=== PATIENT | female | born 1930 | race Caucasian/White ===

== ENCOUNTER 2018-09-17 17:04 | Inpatient (IN) ==
--- OUTSIDE RECORDS SUMMARY | 2018-09-17 17:10 | External Medical Summary | Continuity of Care Document ---
:1930 Author Name Luis Santiago Address Unavailable Unavailable , Care Team Providers Name Role Phone Unavailable Unavailable Unavailable Pita Santiago Unavailable [email or web address] Agnieszka BUI Unavailable Unavailable Unavailable Unavailable Unavailable Problems Xerosis of skin (706.8) (L85.3) BCC (basal cell carcinoma) (173.91) (C44.91) Actinic keratosis (702.0) (L57.0) History of basal cell carcinoma (V10.83) (Z85.828) Allergies and Adverse Reactions No Known Drug Allergies (Allergy) Medications Atenolol TABS; TAKE 1 TABLET DAILY. , M.D. Refills: 0 Vitamin D 2000 UNIT Oral Capsule; TAKE 2 CAPSULE Daily , M.D . Start: 25-Nov-2013 Refills: 0 Evista TABS; TAKE 1 TABLET DAILY. , M.D. Refills: 0 Lisinopril TABS; TAKE 1 TABLET DAILY. , M.D. Refills: 0 Lescol CAPS; TAKE 1 CAPSULE AT BEDTIME NIGHTLY. , M.D. Refills: 0 Ammonium Lactate 12 % External Lotion; A PPLY AND RUB IN A THIN FILM TO AFFECTED AREAS TWICE DAILY.(AM AND PM). Jack Lema Start: 2014 Quantity: 1 225 GM Bottle Refills: 2 Procedures Procedures not documented Immunizations Immunizations not documented Social History - Smoking Status Never smoker Plan of Treatment Planned Observations Planned Goals not documented Results No Known Results Results not documented
--- NOTE | 2018-09-17 17:21 | Emergency Department Note ---
History of Present Illness General Chief complaint: Fall Stated complaint: FALL, Time Seen by Provider: 09/17/18 17:20 History of Present Illness This is an 88-year-old female that presents to the emergency department via ambulance accompanied by HER-2 daughters with complaints of "fall". The patient notes that earlier today she was ambulating in her home when she was carrying some toilet tissue and water and she accidentally dropped the water and when she went to catch that she leaned forward and then fell backwards striking the head against the floor. She denies loss of consciousness. She notes that she has a headache and is feeling nauseous. She also has been feeling not quite herself and quite "sluggish" for the past 2 weeks. The daughters at bedside notes that she is not quite her perky self, noting that generally she is driving and quality but over the past few weeks seems to be more tired. The patient at this time denies any neck pain, chest pain, shortness of breath, vision change. She denies any abdominal pain or dysuria. Home Medications Home Medications Medication Instructions Recorded Confirmed Type amlodipine [Norvasc] 5 mg PO DAILY 09/17/18 09/17/18 History ascorbic acid (vitamin C) [Vitamin 0 mg PO DAILY 09/17/18 09/17/18 History C] cholecalciferol (vitamin D3) 1,000 unit PO DAILY 09/17/18 09/17/18 History [Vitamin D3] levothyroxine 25 mcg PO DAILY 09/17/18 09/17/18 History meclizine 25 mg PO TID PRN 09/17/18 09/17/18 History metoprolol succinate [Toprol XL] 50 mg PO DAILY 09/17/18 09/17/18 History multivitamin 1 tab PO DAILY 09/17/18 09/17/18 History pravastatin [Pravachol] 20 mg PO DAILY 09/17/18 09/17/18 History Allergies Allergy/AdvReac Type Severity Reaction Status Date / Time chlorthalidone Allergy Severe Rash Verified 09/17/18 17:43 NSAIDS (Non-Steroidal AdvReac Intermediate Hypertensio Verified 09/17/18 17:43 Anti-Inflamma n alendronate sodium AdvReac Gastrointestinal Verified 09/17/18 17:43 [From Fosamax] Upset Past Med/Surg History Medical History HTN (hypertension) (Chronic) HLD (hyperlipidemia) (Chronic) Hypothyroidism (Chronic) Osteoporosis (Chronic) History of nephrolithiasis (Chronic) Surgical History History of cystoscopy (Chronic) History of ureter stent (Chronic) History of D&C (Chronic) History of cataract extraction (Chronic) Family History Father Myocardial infarction, Onset Age: 69 Mother Pancreatic cancer, Onset Age: 69 Social History Preferred Language: Venezuelan Communication Ability: Effective [place] Measurer Required: No Beliefs That Will Affect Care: None marital status: / Current Living Situation: Alone Current Living Situation Comment: Patient very independent, still drives, ambulates without assist device Other Information That Helps Us Care for You: No Feels Safe at Home: Yes Safety Concerns: Feels Safe At This Time Smoking Status: Never smoker Second Hand Exposure: No Hx Alcohol Use: No Hx Substance Use: No Review of Systems A total of 10 systems reviewed and were otherwise negative Physical Exam Vital Signs Vital Signs - 24 hr 09/17/18 17:13 09/17/18 19:43 09/17/18 20:17 Temperature 36.4 C L Temperature Source Oral Sepsis Recent Fever Within 48 Hours No Sepsis Action Taken by Nursing No Action Required Pulse Rate 62 Pulse Rate [Right] 75 74 Pulse Rhythm Regular Pulse Rhythm [Right] Regular Pulse Strength Normal Pulse Strength [Right] Normal Respiratory Rate 20 16 16 Respiratory Effort / Characteristics Non-Labored Spontaneous Non-Labored Spontaneous Non-Labored Spontaneous Respiratory Depth Normal Normal Normal Respiratory Pattern Regular Blood Pressure 206/78 H Blood Pressure [Right Arm] 202/75 H 184/79 H Blood Pressure Mean 120 Blood Pressure Mean [Right Arm] 117 114 Pulse Oximetry 93 95 95 Oxygen Delivery Method Room Air Room Air Room Air VITAL SIGNS - Vital signs and nursing notes were reviewed. Hypertensive, otherwise stable. GENERAL -88-year-old female appearing her stated age who is in no acute distress. Communicates well with provider and answers questions appropriately. SKIN - Without rashes. No meningeal or petechial rash. No break in the int egument overlying the occiput. HEAD - NC/AT. No black signs or raccoon's eyes. EYES - PERRL with EOMI bilaterally. Sclera anicteric. EARS - No deformities of external structures noted on gross examination bilaterally. NOSE - Midline and without cyanosis. No epistaxis or purulent drainage noted. MOUTH/OROPHARYNX - Without perioral cyanosis. NECK - Neck with FROM. Supple to palpation. No lymphadenopathy noted. No nuchal rigidity. LUNGS - Chest wall symmetric without accessory muscle use, intercostals retractions, or central cyanosis. Normal vesicular breath sounds CTA B/L. No wheezes, rales, or rhonchi appreciated. CARDIAC - RRR without any definite murmur noted. ABDOMEN - Abdominal contour normal without pulsations or visible masses. BS normoactive all four quadrants. No tenderness, palpable masses, hepatosplenomegaly, or ascites noted. EXTREMITIES - No clubbing or peripheral cyanosis. No pretibial edema present. Full range of motion of the extremities. No tenderness on exam. +5/5 strength noted in UE/LE bilaterally. NEUROLOGIC - Cranial nerves II through XII grossly intact. Sensory intact to light touch throughout. PSYCH - A&Ox3 and cooperates fully with examiner. Pt is very pleasant and interacts well with examiner. Course Administered Medications Sodium Chloride (Nss 1000ml) 1,000 mls @ 60 mls/hr IV .[id number] [facility] Stop: 09/18/18 14:29 Last Admin: 09/17/18 22:29 Dose: 60 mls/hr Documented by: [id number] Morphine Sulfate (Morphine Sulfate) 2 mg IV Q4 PRN PRN Reason: Pain Stop: 10/01/18 23:35 Last Admin: 09/18/18 00:42 Dose: 2 mg Documented by: [id number] Discontinued Medications Acetaminophen (Tylenol) 500 mg PO NOW STA Stop: 09/17/18 19:02 Last Admin: 09/17/18 19:15 Dose: 500 mg Documented by: [id number] Sodium Chloride (Nss) 500 mls @ 999 mls/hr IV .Q31M ONE Stop: 09/17/18 19:31 Last Infusion: 09/17/18 19:50 Dose: 0 mls/hr Documented by: [id number] Admin: 09/17/18 19:15 Dose: 999 mls/hr Documented by: [id number] Ceftriaxone Sodium (Rocephin) 1,000 mg in 50 mls @ 100 mls/hr IV NOW STA Stop: 09/17/18 20:45 Last Infusion: 09/17/18 21:01 Dose: 0 mls/hr Documented by: [id number] Admin: 09/17/18 20:30 Dose: 100 mls/hr Documented by: [id number] Ketorolac Tromethamine (Toradol) 10 mg IV NOW STA Stop: 09/17/18 19:56 Last Admin: 09/17/18 20:13 Dose: Not Given Documented by: [id number] Lisinopril (Zestril) 5 mg PO NOW ONE Stop: 09/17/18 23:38 Last Admin: 09/18/18 00:42 Dose: 5 mg Documented by: [id number] Ondansetron HCl (Zofran) 4 mg IV NOW STA Stop: 09/17/18 19:02 Last Admin: 09/17/18 19:15 Dose: 4 mg Documented by: [id number] Medical Decision Making Laboratory Data Result diagrams: 09/17/18 18:25 09/17/18 18:25 Lab Results 09/17/18 09/17/18 09/17/18 Range/Units 18:25 18:25 19:30 WBC 9.11 (4.8-10.8) K/uL RBC 4.66 (4.2-5.4) M/uL Hgb 14.4 (12.0-16.0) g/dL Hct 42.8 (37-47) % MCV 91.8 (80-100) fL MCH 30.9 (25-34) pg MCHC 33.6 (32-36) g/dL RDW Std Deviation 50.0 H (36.4-46.3) fL RDW Coeff of Dennis 14.9 H (11.5-14.5) % Plt Count 180 (130-400) K/uL MPV 9.8 (7.4-10.4) fL Immature Gran % (Auto) 0.3 % Neut % (Auto) 75.8 % Lymph % (Auto) 17.3 % Camp % (Auto) 6.1 % Eos % (Auto) 0.3 % Baso % (Auto) 0.2 % Immature Gran # (Auto) 0.03 H (0.00-0.02) K/uL Neut # (Auto) 6.89 H (1.4-6.5) K/uL Lymph # (Auto) 1.58 (1.2-3.4) K/uL Camp # (Auto) 0.56 (0.11-0.59) K/uL Eos # (Auto) 0.03 (0-0.5) K/uL Baso # (Auto) 0.02 (0-0.2) K/uL Absolute Nucleated RBC 0.17 H (0-0) K/uL Nucleated RBC % (auto) 1.9 % Sodium 138 (136-145) mmol/L Potassium 4.1 (3.5-5.1) mmol/L Chloride 106 (98-107) mmol/L Carbon Dioxide 25 (21-32) mmol/L Anion Gap 7.0 (3-11) BUN 24 H (7-18) mg/dl Creatinine 0.86 (0.6-1.2) mg/dl Est Cr Clr Drug Dosing 36.5 ml/min Est GFR ( Amer) 70.9 Est GFR (Non-Af Amer) 61.2 BUN/Creatinine Ratio 28.2 H (10-20) Glucose 121 H (70-99) mg/dl Calcium 9.6 (8.5-10.1) mg/dl Total Bilirubin 0.4 (0.2-1) mg/dl AST 27 (15-37) U/L ALT 25 (12-78) U/L Alkaline Phosphatase 120 H (45-117) U/L Total Protein 8.4 H (6.4-8.2) gm/dl Albumin 4.1 (3.4-5.0) gm/dl Globulin 4.3 H (2.5-4.0) gm/dl Albumin/Globulin Ratio 0.9 (0.9-2) Urine Color Yellow Urine Appearance Cloudy A (Clear) Urine pH 7.5 (4.5-7.5) Ur Specific [place] 1.014 (1.000-1.030) Urine Protein Negative (Negative) Urine Glucose (UA) Negative (Negative) Urine Ketones Trace H (Negative) Urine Blood Negative (Negative) Urine Nitrite Positive A (Negative) Urine Bilirubin Negative (Negative) Urine Urobilinogen Negative (Negative) Ur Leukocyte Esterase Negative (Negative) Urine WBC (Auto) 1-5 (0-5) /hpf Urine RBC (Auto) 10-30 H (0-4) /hpf U Hyaline Cast (Auto) 0 (0-5) /lpf U Epithel Cells (Auto) 10-20 H (0-5) /lpf Urine Bacteria (Auto) 4+ H (Negative) Imaging Data Radiologist's Impression: CT head/brain wo con CLINICAL HISTORY: Head pain status post trauma COMPARISON STUDY: No previous studies for comparison. TECHNIQUE: Axial CT of the brain is performed from the vertex to the skull base. IV contrast was not administered for this examination. A dose lowering technique was utilized adhering to the principles of ALARA. CT DOSE: FINDINGS: No intra or extra-axial mass lesions are visualized. There is no CT evidence of acute cortical infarction. There is no evidence of midline shift. There is no acute hemorrhage. No calvarial fractures are visualized. There are minor white matter hypodensities likely on a small vessel basis. There is no evidence of pathologic ventricular dilatation. There is no evidence of acute sinusitis IMPRESSION: No acute intracranial findings Electronically signed by: Jared Randhawa M.D. 09/17/2018 6:[address] OF THE CERVICAL SPINE CLINICAL HISTORY: Neck pain status post trauma COMPARISON STUDY: No previous studies for comparison. CT DOSE: 836.25 mGy.cm TECHNIQUE: CT scan of the cervical spine was performed from the skull base to the thoracic inlet. Images are reviewed in the axial, sagittal, and coronal planes. IV contrast was not administered for this examination. A dose lowering technique was utilized adhering to the principles of ALARA. FINDINGS: There is a 7 mm right lobe thyroid nodule. No further workup is indicated the patient of this age. There is biapical pleural-parenchymal scarring. There is no pneumothorax. The prevertebral soft tissues are normal. No fractures or subluxations are visualized. There are multilevel degenerative changes IMPRESSION: No evidence of acute fracture or traumatic subluxation. Electronically signed by: Jared Randhawa M.D. 09/17/2018 6:38 PM [facility] Narrative Patient was seen and evaluated as above in room C7. Review was performed of nursing notes and vital signs. After obtaining a thorough history and physical examination the above work up was performed. She presents to us today via ambulance status post fall today but also has been quite tired/sluggish over the past 2 weeks. She appears tired but not ill. She is nontoxic on exam but is hy pertensive in regard to vital signs. Her only complaint now is some headache and feeling nauseous. IV access was established. CT scan was obtained of the head and C-spine. GCS 15. These were obtained secondary to mechanism of injury and her presentation here today. CBC reveals no leukocytosis or concerning anemia. There is evidence of dehydration with BUN at 24. Patient's urinalysis reveals positive nitrites, 4+ bacteria which at this time I am concerned about a UTI causing the patient's fatigue and possibly causing her fall. She did not do well ambulating to the bathroom and required assistance by the daughters who are concerned about the patient being discharged home. I do believe that possible inpatient management could be considered. IV Rocephin was ordered. I did consult the hospitalist. Please refer to further documentation regarding her stay. She was also given fluids, Zofran and Tylenol for her complaints here today. Case was discussed with the attending physician. GCS: 15 In the evaluation and treatment of this patient, the following differential diagnoses were considered: Concussion, Contrecoup Injury, Brain Tumor, Depression, Encephalitis, Hypothyroidism, Meningitis, CVA, TIA, Migraine, Cluster Headache, Intracranial Abnormality, Intracranial Hemorrhage, Subdural Hematoma, Subarachnoid Hemorrhage, Hydrocephalus,, UTI, pyelonephritis, sepsis, among others. Impression & Plan UTI (urinary tract infection), Fall, Mild dehydration Discharge Plan Visit Data *Final* Discharge Date/Time: 09/17/18 21:22 Chief Complaint: Fall Stated Complaint: FALL, ED Provider: Reagan Mathew ED Midlevel Provider: Keshawn Roman Discharge Problem: UTI (urinary tract infection), Fall, Mild dehydration Patient Disposition: Admitted As Inpatient Condition: Good Discharge Instructions Interventions: ED Discharge Assessment Last Done: 09/17/18 21:22
[2018-09-17 18:32] LABS: Basophils # (auto) 0.02 K/uL (0-0.2); Basophils % (auto) 0.2 %; Eosinophils # (auto) 0.03 K/uL (0-0.5); Eosinophils % (auto) 0.3 %; Hematocrit (blood only) 42.8 % (37-47); Hemoglobin 14.4 g/dL (12.0-16.0); Immature Granulocytes # (auto) 0.03 K/uL (0.00-0.02); Immature Granulocytes % (auto) 0.3 %; Lymphocytes # (auto) 1.58 K/uL (1.2-3.4); Lymphocytes % (auto) 17.3 %; Mean Corpuscular Hgb Conc 33.6 g/dL (32-36); Mean Corpuscular Volume 91.8 fL (80-100); Mean Platelet Volume 9.8 fL (7.4-10.4); Monocytes # (auto) 0.56 K/uL (0.11-0.59); Monocytes % (auto) 6.1 %; Neutrophils # (auto) 6.89 K/uL (1.4-6.5); Neutrophils % (auto) 75.8 %; Nucleated RBC # (auto) 0.17 K/uL (0-0); Nucleated RBC % (auto) 1.9 %; Platelet Count 180 K/uL (130-400); RDW Coefficient of Variation 14.9 % (11.5-14.5); Red Blood Count 4.66 M/uL (4.2-5.4); White Blood Count 9.11 K/uL (4.8-10.8)
--- NOTE | 2018-09-17 18:35 | CT Scan Report ---
CT head/brain wo con CLINICAL HISTORY: Head pain status post trauma COMPARISON STUDY: No previous studies for comparison. TECHNIQUE: Axial CT of the brain is performed from the vertex to the skull base. IV contrast was not administered for this examination. A dose lowering technique was utilized adhering to the principles of ALARA. CT DOSE: FINDINGS: No intra or extra-axial mass lesions are visualized. There is no CT evidence of acute cortical infarc tion. There is no evidence of midline shift. There is no acute hemorrhage. No calvarial fractures ar e visualized. There are minor white matter hypodensities likely on a small vessel basis. There is no evidence of pathologic ventricular dilatation. There is no evidence of acute sinusitis IMPRESSION: No acute intracranial findings Electronically signed by: Jared Randhawa M.D. 09/17/2018 6:34 PM
--- NOTE | 2018-09-17 18:40 | CT Scan Report ---
CT OF THE CERVICAL SPINE CLINICAL HISTORY: Neck pain status post trauma COMPARISON STUDY: No previous studies for comparison. CT DOSE: 836.25 mGy.cm TECHNIQUE: CT scan of the cervical spine was performed from the skull base to the thoracic inlet. Felicity ges are reviewed in the axial, sagittal, and coronal planes. IV contrast was not administered for thi s examination. A dose lowering technique was utilized adhering to the principles of ALARA. FINDINGS: There is a 7 mm right lobe thyroid nodule. No further workup is indicated the patient of this age. Th ere is biapical pleural-parenchymal scarring. There is no pneumothorax. The prevertebral soft tissues are normal. No fractures or subluxations are visualized. There are multilevel degenerative changes IMPRESSION: No evidence of acute fracture or traumatic subluxation. Electronically signed by: Jared Randhawa M.D. 09/17/2018 6:38 PM
[2018-09-17 18:53] LABS: Albumin Level 4.1 gm/dl (3.4-5.0); BUN Creatinine Ratio 28.2 (10-20); Calcium 9.6 mg/dl (8.5-10.1); Creatinine Clr Calc Pharmacy 36.5 ml/min; Est GFR (African American) 70.9; Est GFR (Non-African American) 61.2; Potassium 4.1 mmol/L (3.5-5.1)
[2018-09-17 18:56] LABS: Albumin Globulin Ratio 0.9 (0.9-2); Bilirubin,Total 0.4 mg/dl (0.2-1); Globulin 4.3 gm/dl (2.5-4.0); Total Protein 8.4 gm/dl (6.4-8.2)
[2018-09-17] MEDS ORDERED: SODIUM CHLORIDE 0.9% 500 ML IV ONE (19:01)
[2018-09-17] MEDS ORDERED: ONDANSETRON INJ 2 MG/ML 2 ML VIAL IV STA (19:01)
[2018-09-17] MEDS ORDERED: ACETAMINOPHEN 500 MG TAB PO STA (19:01)
[2018-09-17] MEDS ORDERED: KETOROLAC TROMETHAMINE 15 MG/ML VIAL IV STA (19:55)
[2018-09-17 19:56] LABS: Appearance Urine Cloudy (Clear); Bacteria Urine Automated 4+ (Negative); Bilirubin Urine Negative (Negative); Blood Urine Negative (Negative); Cast Urine Automated 0 /lpf (0-5); Color Urine Yellow; Glucose Urine UA Negative (Negative); Ketones Urine Trace (Negative); Leukocyte Esterase Urine Negative (Negative); Nitrite Urine Positive (Negative); Protein Urine Negative (Negative); Specific Gravity Urine 1.014 (1.000-1.030); Urobilinogen Urine Negative (Negative); pH Urine 7.5 (4.5-7.5)
--- NOTE | 2018-09-17 19:56 | Emergency Department Note ---
ED Visit Note This Patient was discussed with the physician head start assistant teacher, Keshawn Roman PA-C. The pertinent historical and physical exam findings were confirmed. I agree with the studies ordered and with the interpretations of these studies. I agree with the disposition and care plan. .
[2018-09-17] MEDS ORDERED: cefTRIAXone SODIUM 1,000 MG/50 ML BAG IV STA (20:16)
--- NOTE | 2018-09-17 21:03 | History & Physical Report ---
Date of Service September 17, 2018 Assessment & Plan (1) Fall: (2) UTI (urinary tract infection): (3) Mild dehydration: This is a 88-year-old female who has a significant past medical history of HTN, HLD, hypothyroidism, osteoporosis, history of nephrolithiasis who presents to [facility] status post fall prior to arrival. She hit back of her head. No LOC. In ED patient was noted to be significantly hypertensive which is felt secondary to pain. A CT scan of her head and her neck was negative for any acute abnormality despite trauma. Her CBC and CMP was relatively unremarkable except a mild elevation in her BUN concerning for mild dehydration. Her urinalysis was also concerning for UTI given +nitrites and bacturia. Given the above and increased weakness for the past 2 weeks patient was recommended for admission. admit to med/surg tele continue Rocephin 1g daily until urine culture returns gentle IVF NS 60cc/hr x 1L repeat cbc, bmp in a.m. PT/OT orders placed (4) HTN (hypertension): Patient hypertensive upon admission She did take a.m. meds of metoprolol and amlodipine Likely secondary to trauma, pain, anxiety of hospital Monitor BP and treat accordingly Continue metoprolol and amlodipine (5) HLD (hyperlipidemia): Continue statin (6) Hypothyroidism: Continue levothyroxine (7) Osteoporosis: Continue vitamin D Patient working with PCP to initiate Prolia (8) DVT prophylaxis: SCDS/TEDS Disposition: Patient likely to be discharged to home, PT/OT orders placed, discharge planning ordered Follow up: PCP Dr. Hoang upon discharge Patient was seen and examined in collaboration with Dr. Shipman, please see addendum Starting 09/18/2018 patient will be under the care of Dr. Gregorio History of Present Illness Chief Complaint: Fall prior to arrival. Primary Care Provider: Ham Perez MD This is a 88-year-old female who has a significant past medical history of HTN, HLD, hypothyroidism, osteoporosis, history of nephrolithiasis who presents to [facility] status post fall prior to arrival. 2 daughters at bedside. Patient who still lives at home alone, is very independent and still drives had just returned home from the store and was planning to carry a wrap of toilet tissue and 2 bottles of water up her basement stairs. At the bottom of t he stairs patient lost balance, lost items in hand and when trying to catch items fell backwards and hit the back of her head. No LOC. When she got up she did not have any pain but overall felt dizzy. She was able to walk up the stairs and called her daughter who is an RN to come evaluate her. Over the past 2 weeks daughter feels patient has not quite been herself, has been more sluggish and more tired and overall weak. She was seen by PCP Dr. Hoang on 09/16. Besides weakness and more fatigue patient denies any fever, chills, sweats, lightheadedness, dizziness, syncope, chest pain, palpitations, shortness of breath, nausea, vomiting, diarrhea, dysuria, hematuria, increased urgency or frequency with urination. Appetite is otherwise been normal. In ED patient was noted to be significantly hypertensive which is felt secondary to pain. A CT scan of her head and her neck was negative for any acute abnormality despite trauma. Her CBC and CMP was relatively unremarkable except a mild elevation in her BUN concerning for mild dehydration. Her urinalysis was also concerning for UTI. Given the above and increased weakness for the past 2 weeks patient was recommended for admission. Allergies Allergy/AdvReac Type Severity Reaction Status Date / Time chlorthalidone Allergy Severe Rash Verified 09/17/18 17:43 NSAIDS (Non-Steroidal AdvReac Intermediate Hypertensio Verified 09/17/18 17:43 Anti-Inflamma n alendronate sodium AdvReac Gastrointestinal Verified 09/17/18 17:43 [From Fosamax] Upset Home Medications Home Medications Medication Instructions Recorded Confirmed Type amlodipine [Norvasc] 5 mg PO DAILY 09/17/18 09/17/18 History ascorbic acid (vitamin C) [Vitamin 0 mg PO DAILY 09/17/18 09/17/18 History C] cholecalciferol (vitamin D3) 1,000 unit PO DAILY 09/17/18 09/17/18 History [Vitamin D3] levothyroxine 25 mcg PO DAILY 09/17/18 09/17/18 History meclizine 25 mg PO TID PRN 09/17/18 09/17/18 History metoprolol succinate [Toprol XL] 50 mg PO DAILY 09/17/18 09/17/18 History multivitamin 1 tab PO DAILY 09/17/18 09/17/18 History pravastatin [Pravachol] 20 mg PO DAILY 09/17/18 09/17/18 History Past Med/Surg History Medical History HTN (hypertension) (Chronic) HLD (hyperlipidemia) (Chronic) Hypothyroidism (Chronic) Osteoporosis (Chronic) History of nephrolithiasis (Chronic) Surgical History History of cystoscopy (Chronic) History of ureter stent (Chronic) History of D&C (Chronic) History of cataract extraction (Chronic) Family History Father Myocardial infarction, Onset Age: 69 Mother Pancreatic cancer, Onset Age: 69 Social History Preferred Language: Sudanese Communication Ability: Effective marital status: / Current Living Situation: Alone Current Living Situation Comment: Patient very independent, still drives, ambulates without assist device Feels Safe at Home: Yes Smoking Status: Never smoker Hx Alcohol Use: No Hx Substance Use: No Review of Systems Review of Systems: As noted per HPI, 10 systems reviewed and negative unless noted above. Physical Exam Physical Exam: Gen: WD/WN, petite, elderly female, NAD, sitting up in bed, pleasant, conversing easily Head: Normocephalic, atraumatic Eyes: Sclera normal, no conjunctival injection, PERRLA, EOMI ENT: Gross hearing intact, normal pharynx, mucous membranes moist Neck: supple, no adenopathy, No JVD, no bruit, Resp: Clear to auscultation b/l, no wheeze, rales, rhonchi. Normal insp/exp effort, no accessory muscle use CV: Regular rate, regular rhythm, no murmur, rub, gallop, or ectopy Abd: +BS x 4, soft, mild tenderness to suprapubic region, nondistended Musculoskeletal: moves extremities active rom x 4, strength intact, good hr systems analyst strength Extremities: No edema bilaterally Skin: warm, dry, no rash, mild turgor, cap refill < 2sec Neuro: Alert and oriented x 3, speech normal, good mood/affect, cran nerve 2-12 intact grossly : deferred Results & Data Vital Signs (Past 12 Hours) Vital Signs Temp Pulse Pulse Resp BP BP Pulse Ox 09/17/18 20:17 74 16 184/79 H 95 09/17/18 19:43 75 16 202/75 H 95 09/17/18 17:13 36.4 C L 62 20 206/78 H 93 Laboratory Results Short CBC 09/17/18 Range/Units 18:25 WBC 9.11 (4.8-10.8) K/uL Hgb 14.4 (12.0-16.0) g/dL Hct 42.8 (37-47) % Plt Count 180 (130-400) K/uL BMP 09/17/18 18:25 Sodium 138 Potassium 4.1 Chloride 106 Carbon Dioxide 25 BUN 24 H Creatinine 0.86 Glucose 121 H Calcium 9.6 Liver Function 09/17/18 Range/Units 18:25 Total Bilirubin 0.4 (0.2-1) mg/dl AST 27 (15-37) U/L ALT 25 (12-78) U/L Alkaline Phosphatase 120 H (45-117) U/L Albumin 4.1 (3.4-5.0) gm/dl Urine 09/17/18 Range/Units 19:30 Urine Color Yellow Urine Appearance Cloudy A (Clear) Urine pH 7.5 (4.5-7.5) Ur Specific [place] 1.014 (1.000-1.030) Urine Protein Negative (Negative) Urine Glucose (UA) Negative (Negative) Diagnostic Findings Head CT: FINDINGS: No intra or extra-axial mass lesions are visualized. There is no CT evidence of acute cortical infarction. There is no evidence of midline shift. There is no acute hemorrhage. No calvarial fractures are visualized. There are minor white matter hypodensities likely on a small vessel basis. There is no evidence of pathologic ventricular dilatation. There is no evidence of acute sinusitis IMPRESSION: No acute intracranial findings CSpine CT: FINDINGS: There is a 7 mm right lobe thyroid nodule. No further workup is indicated the patient of this age. There is biapical pleural-parenchymal scarring. There is no pneumothorax. The prevertebral soft tissues are normal. No fractures or subluxations are visualized. There are multilevel degenerative changes IMPRESSION: No evidence of acute fracture or traumatic subluxation. Medications Administered Discontinued Medications Acetaminophen (Tylenol) 500 mg PO NOW STA Stop: 09/17/18 19:02 Last Admin: 09/17/18 19:15 Dose: 500 mg Documented by: [id number] Sodium Chloride (Nss) 500 mls @ 999 mls/hr IV .Q31M ONE Stop: 09/17/18 19:31 Last Infusion: 09/17/18 19:50 Dose: 0 mls/hr Documented by: [id number] Admin: 09/17/18 19:15 Dose: 999 mls/hr Documented by: [id number] Ceftriaxone Sodium (Rocephin) 1,000 mg in 50 mls @ 100 mls/hr IV NOW STA Stop: 09/17/18 20:45 Last Infusion: 09/17/18 21:01 Dose: 0 mls/hr Documented by: [id number] Admin: 09/17/18 20:30 Dose: 100 mls/hr Documented by: [id number] Ketorolac Tromethamine (Toradol) 10 mg IV NOW STA Stop: 09/17/18 19:56 Last Admin: 09/17/18 20:13 Dose: Not Given Documented by: [id number] Ondansetron HCl (Zofran) 4 mg IV NOW STA Stop: 09/17/18 19:02 Last Admin: 09/17/18 19:15 Dose: 4 mg Documented by: [id number] Code Status & VTE Plan Code Status Full Code VTE Prophylaxis Plan VTE Prophylaxis will be ordered: Yes Reason for no VTE drug order: Treatment not indicated Supervising Physician Co-Signing Physician Notes I saw this patient with the physician physiotherapy assistant, I participated in the history, physical, review of systems, and physical exam. I reviewed the medications with the patient and the physician physiotherapy assistant and helped reconcile the medications. I helped take a detailed family and social history as well. I formulated the assessment and plan personally with the physician physiotherapy assistant and went over it with the patient. ROS-No Headache, No Visual Changes, No Nausea, No Vomiting, No Fever, No Chills, No Neck Pain or Stiffness, No Chest Pain, No Palpitations, No SOB, No SANTANA, No Cough, No Sputum, No Wheezing, No Abdominal Pain, No Diarrhea, No Hematemesis, No Hemoptysis, No Unexpected Weight Loss, No Flank pain, No Melena, No Hematochezia, No Frequency, No Urgency, No Burning, No Hematuria, No Rashes, No Diaphoresis. Appetite is Normal, Weak, Dizzy, Fell and Hit R post head Physical Exam Gen-AAO x 3, NAD, Afebrile, Lump on R Occiput Head-EOMI, PERRLA, Anicteric Sclera, No Posterior Pharyngeal Erythema Neck-Supple, No JVD, No Thyromegaly, No Masses, No LAD, No Bruits Lungs-Clear to Auscultation Bilaterally, No Rales, No Rhonchi, No Wheezing, No Crepitus Chest-No S4, +S1, +S2, No S3, No Murmurs, No Rubs, No Gallops, No Ectopy Abdomen-Soft, Bowel Sounds Present, Non Tender, Non Distended, No Hepatomegaly, No Splenomegaly, No Palpable Masses, No Rebound, No Rigidity, No Guarding Musculoskeletal-Full Range of Motion Bilaterally, No CVAT Extremities-No Cyanosis, No Clubbing, No Edema Nuero-Cranial Nerves II-XII grossly intact, Motor WNL, DTRs WNL, Strength WNL, Non Focal Psych-Normal Mood
[2018-09-17] MEDS ORDERED: ONDANSETRON INJ 2 MG/ML 2 ML VIAL IV PRN (21:50)
[2018-09-17] MEDS ORDERED: SODIUM CHLORIDE 0.9% 1000ML 1,000 ML IV SCH (21:50)
[2018-09-17] MEDS ORDERED: ALUMINUM/MAGNESIUM SUSP 30 ML UDC PO PRN (21:50)
[2018-09-17] MEDS ORDERED: ACETAMINOPHEN 325 MG TAB PO PRN (21:50)
[2018-09-17] MEDS ORDERED: MECLIZINE HCL 25 MG TAB PO PRN (21:50)
[2018-09-17] MEDS ORDERED: POLYETHYLENE (MIRALAX) 17 GM PACK PO PRN (21:50)
[2018-09-17] MEDS ORDERED: MAGNESIUM HYDROXIDE SUSP 30 ML UDC PO PRN (21:50)
[2018-09-17] MEDS ORDERED: KETOROLAC TROMETHAMINE 15 MG/ML VIAL IV PRN (23:09)
[2018-09-17] MEDS ORDERED: MoRPHine SULFATE 2 MG/ML CARP IV PRN (23:36)
[2018-09-17] MEDS ORDERED: LISINOPRIL 5 MG TAB PO ONE (23:37)
[2018-09-18] MEDS: LEVOTHYROXINE SODIUM 25 MCG TABLET PO SCH (05:49)
[2018-09-18 07:14] LABS: Basophils # (auto) 0.03 K/uL (0-0.2); Basophils % (auto) 0.4 %; Eosinophils % (auto) 1.2 %; Hematocrit (blood only) 40.5 % (37-47); Hemoglobin 13.4 g/dL (12.0-16.0); Immature Granulocytes # (auto) 0.01 K/uL (0.00-0.02); Immature Granulocytes % (auto) 0.1 %; Lymphocytes # (auto) 3.06 K/uL (1.2-3.4); Lymphocytes % (auto) 37.3 %; Mean Corpuscular Hgb Conc 33.1 g/dL (32-36); Mean Corpuscular Volume 92.9 fL (80-100); Mean Platelet Volume 9.6 fL (7.4-10.4); Monocytes # (auto) 0.78 K/uL (0.11-0.59); Monocytes % (auto) 9.5 %; Neutrophils # (auto) 4.22 K/uL (1.4-6.5); Neutrophils % (auto) 51.5 %; Platelet Count 163 K/uL (130-400); RDW Coefficient of Variation 14.8 % (11.5-14.5); RDW Standard Deviation 50.4 fL (36.4-46.3); Red Blood Count 4.36 M/uL (4.2-5.4)
[2018-09-18 07:48] LABS: BUN Creatinine Ratio 22.2 (10-20); Calcium 8.7 mg/dl (8.5-10.1); Creatinine Clr Calc Pharmacy 40.7 ml/min; Est GFR (Non-African American) 69.9; Magnesium 2.1 mg/dl (1.8-2.4); Potassium 3.9 mmol/L (3.5-5.1)
[2018-09-18] MEDS: AMLODIPINE BESYLATE 5 MG TAB PO SCH (08:50)
[2018-09-18] MEDS: CHOLECALCIFEROL 1,000 UNITS TAB PO SCH (08:50)
[2018-09-18] MEDS: MULTIVITAMIN TAB PO SCH (08:51)
[2018-09-18] MEDS: ASCORBIC ACID 500 MG TAB PO SCH (08:51)
[2018-09-18] MEDS: PRAVASTATIN SOD 20 MG TAB PO SCH ×2 (08:51→09:01)
[2018-09-18] MEDS ORDERED: AMLODIPINE BESYLATE 5 MG TAB PO SCH (09:00)
[2018-09-18] MEDS ORDERED: METOPROLOL SUCC 50MG EXT REL TAB PO SCH (09:00)
--- NOTE | 2018-09-18 13:06 | Hospitalist Progress Note ---
Date of Service September 18, 2018 Assessment & Plan (1) Fall: no sequelae or residual pain. Imaging in ER workup revealed no acute fracture. (2) UTI (urinary tract infection): Cont Rocephin pending speciation and sensitivities. Pt is improved clinically. (3) Mild dehydration: Improved with IVF overnight. Now tolerating PO so will stop IVF. (4) HTN (hypertension): Elevated BP on arrival, but is improved. (5) HLD (hyperlipidemia): statin (6) Hypothyroidism: Continue levothyroxine (7) Osteoporosis: Continue vitamin D Patient working with PCP to initiate Prolia (8) DVT prophylaxis: SCDS/TEDS Disposition: pending clinical improvement and PT/OT evaluation [facility] Subject[facility] Feels improved since admission with abx started overnight Weakness is improved in her legs Tolerating PO Will stop IVF Review of Systems Review of Systems: All systems reviewed & are unremarkable except as noted in HPI & below Physical Exam Physical Exam: CONSTITUTIONAL: WNWD, vitals as above, generally well- appearing EYES: normal conjunctivae, no scleral icterus ENT: MMM RESPIRATORY: clear to auscultation bilaterally, no crackles, rales or wheezes, normal respiratory effort CARDIOVASCULAR: regular rate and rhythm, S1 and 2 heard without murmurs, gallops or rubs, no JVD, no peripheral edema GASTROINTESTINAL: normal bowel sounds, soft, nontender, nondistended MUSCULOSKELETAL: strength 5/5 throughout, head is normocephalic and atraumatic SKIN: warm and dry NEUROLOGIC: CN 2-12 grossly intact, normal cognition, normal speech, no tremor, no gross focal deficits. PSYCHIATRIC: alert cooperative and oriented to person, place and time. Results & Data Vital Signs (Past 12 Hours) Vital Signs Temp Pulse Pulse Resp BP BP Pulse Ox 09/18/18 12:00 36.8 C 50 L 20 144/64 H 96 09/18/18 10:17 98 09/18/18 08:00 60 09/18/18 07:03 36.5 C 62 20 173/67 H 96 09/18/18 04:53 36.5 C 64 19 173/77 H 96 09/18/18 01:50 36.7 C 64 20 171/74 H 91
[2018-09-18] MEDS ORDERED: cefTRIAXone SODIUM 1,000 MG in DEXTROSE 5% 50 ML IV SCH (20:00)
[2018-09-19] MEDS: LEVOTHYROXINE SODIUM 25 MCG TABLET PO SCH (05:52)
[2018-09-19 05:55] LABS: Hematocrit (blood only) 39.6 % (37-47); Hemoglobin 12.9 g/dL (12.0-16.0); Mean Corpuscular Hgb Conc 32.6 g/dL (32-36); Mean Corpuscular Volume 92.1 fL (80-100); Mean Platelet Volume 9.8 fL (7.4-10.4); Platelet Count 156 K/uL (130-400); RDW Coefficient of Variation 14.9 % (11.5-14.5); RDW Standard Deviation 50.3 fL (36.4-46.3); White Blood Count 5.74 K/uL (4.8-10.8)
[2018-09-19 06:24] LABS: BUN Creatinine Ratio 29.1 (10-20); Calcium 8.9 mg/dl (8.5-10.1); Creatinine Clr Calc Pharmacy 40.2 ml/min; Est GFR (African American) 79.8; Est GFR (Non-African American) 68.8
[2018-09-19 06:51] LABS: T4 Free Thyroxine 1.02 ng/dl (0.8-1.6)
[2018-09-19 08:09] LABS: Potassium 4.5 mmol/L (3.5-5.1)
[2018-09-19] MEDS: MULTIVITAMIN TAB PO SCH (08:09)
[2018-09-19] MEDS: PRAVASTATIN SOD 20 MG TAB PO SCH (08:09)
[2018-09-19] MEDS: AMLODIPINE BESYLATE 5 MG TAB PO SCH (08:09)
[2018-09-19] MEDS: CHOLECALCIFEROL 1,000 UNITS TAB PO SCH (08:09)
[2018-09-19] MEDS: ASCORBIC ACID 500 MG TAB PO SCH (08:09)
[2018-09-19] MEDS ORDERED: METOPROLOL SUCC 25MG EXT REL TAB PO SCH (09:00)
[2018-09-19] MEDS ORDERED: AMLODIPINE BESYLATE 5 MG TAB PO ONE (09:12)
--- NOTE | 2018-09-19 09:22 | Discharge Summary ---
Date of Service September 19, 2018 Admission HPI Per Admitting Provider This is a 88-year-old female who has a significant past medical history of HTN, HLD, hypothyroidism, osteoporosis, history of nephrolithiasis who presents to [facility] status post fall prior to arrival. 2 daughters at bedside. Patient who still lives at home alone, is very independent and still drives had just returned home from the store and was planning to carry a wrap of toilet tissue and 2 bottles of water up her basement stairs. At the bottom of the stairs patient lost balance, lost items in hand and when trying to catch items fell backwards and hit the back of her head. No LOC. When she got up she did not have any pain but overall felt dizzy. She was able to walk up the stairs and called her daughter who is an RN to come evaluate her. Over the past 2 weeks daughter feels patient has not quite been herself, has been more sluggish and more tired and overall weak. She was seen by PCP Dr. Hoang on 09/16. Besides weakness and more fatigue patient denies any fever, chills, sweats, lightheadedness, dizziness, syncope, chest pain, palpitations, shortness of breath, nausea, vomiting, diarrhea, dysuria, hematuria, increased urgency or frequency with urination. Appetite is otherwise been normal. In ED patient was noted to be significantly hypertensive which is felt secondary to pain. A CT scan of her head and her neck was negative for any acute abnormality despite trauma. Her CBC and CMP was relatively unremarkable except a mild elevation in her BUN concerning for mild dehydration. Her urinalysis was also concerning for UTI. Given the above and increased weakness for the past 2 weeks patient was recommended for admission. Admission Exam Per Admitting Provider Gen: WD/WN, petite, elderly female, NAD, sitting up in bed, pleasant, conversing easily Head: Normocephalic, atraumatic Eyes: Sclera normal, no conjunctival injection, PERRLA, EOMI ENT: Gross hearing intact, normal pharynx, mucous membranes moist Neck: supple, no adenopathy, No JVD, no bruit, Resp: Clear to auscultation b/l, no wheeze, rales, rhonchi. Normal insp/exp effort, no accessory muscle use CV: Regular rate, regular rhythm, no murmur, rub, gallop, or ectopy Abd: +BS x 4, soft, mild tenderness to suprapubic region, nondistended Musculoskeletal: moves extremities active rom x 4, strength intact, good senior risk analyst strength Extremities: No edema bilaterally Skin: warm, dry, no rash, mild turgor, cap refill < 2sec Neuro: Alert and oriented x 3, speech normal, good mood/affect, cran nerve 2-12 intact grossly : deferred Principal Diagnosis s/p mechanical fall E coli UTI HTN Hypothyroidism Discharge Data Allergies Allergy/AdvReac Type Severity Reaction Status Date / Time chlorthalidone Allergy Severe Rash Verified 09/17/18 17:43 NSAIDS (Non-Steroidal AdvReac Intermediate Hypertensio Verified 09/17/18 17:43 Anti-Inflamma n alendronate sodium AdvReac Gastrointestinal Verified 09/17/18 17:43 [From Fosamax] Upset Consultations 09/17/18 20:16 ED Decision to Admit Stat 09/17/18 21:50 Consult Case Management - Discharge Planning Routine Ordered Studies 09/17/18 17:38 CT cervical spine wo con Stat CT head/brain wo con Stat Hospital Course (1) Fall: (2) UTI (urinary tract infection): (3) Mild dehydration: (4) HTN (hypertension): (5) Hypothyroidism: She was admitted to the Hospitalist service and placed on Rocephin for a UTI and IVF for dehydration. Head and CT spine CTs were performed and negative for fracture or other acute issue after the fall. PT/OT was consulted and evaluated her the following day. She was clinically improved at that time and tolerating PO so IVF were stopped. On HD3 her urine culture returned positive for E coli and she was switched to Bactrim PO. Her blood pressure was higher than goal so her amlodipine was doubled to 10mg daily. Her TSH was elevated somewhat, however, she was just recently started on Synthroid 25mg daily so this was continued. A repeat TSH in 6-8 weeks is recommended. Lastly her heart rate was in the 50s consistently while being monitored on telemetry. As she was reporting weakness and fatigue, and this is known to be secondary to beta eliz and beta eliz intolerance, her Toprol XL was reduced by 50%. However, ultimately her symptoms improved with antibiotics and she was reporting incomplete voiding during the last couple of weeks, so her UTI was likely the cause of her weakness and fatigue and probably contributed to her fall. This was discussed with the patient and her daughters. At time of discharge, she was ambulating and mentating and baseline and was tolerating PO. She was hemodynamically stable and afebrile and was asymptomatic. Physical exam was unremarkable. She was sent home in stable condition with close primary care follow-up recommended. Total Time Total Time Spent Total Time Spent (In Minutes): 60 minutes Total Time Includes: Examination of the Patient, Discharge Planning, Medication Reconciliation, Communication With Other Providers and Other (coordinated outpatient followup) Discharge Plan Discharge Items Patient Disposition: Home - Self-Care Reason For Visit: UTI,DEHYDRATION,FALL Discharge Diagnosis: E coli UTI s/p mechanical fall hypothyroidism uncontrolled hypertension beta-eliz induced bradycardia Condition: Good Discharge Goals: Improve disease control Activity: Resume your previous activity Non-emergency contact: Primary Care Provider Call non-emergency contact if: you have any medication questions, your symptoms worsen, your pain is not controlled, your pain is worsening, your pain is unusual for you, your pain is concerning for you and you have a fever Follow-up/Referrals: Jorge Villagomez MD [Primary Care Provider] - Diet: Low Sodium (2gm) Addtl Provider Instructions: Please take all medications as instructed on discharge list below. MEDICATION CHANGES: 1. Your AMLODIPINE was increased to better control your blood pressure. Please follow-up with primary care physician to check your blood pressure within one week of discharge from the hospital. 2. Your heart rate was too low and may have been contributing to your weakness. TOPROL XL was reduced by 50%. 3. You are being given an antibiotic, BACTRIM DS, for a urinary tract infection. Please take the full course of antibiotics. 4. Your thyroid level was slightly underactive in the hospital (TSH 6.11). Please follow-up with your PCP regarding adjustments of your LEVOTHYROXINE as needed. A one week follow-up is recommended with your PCP to review the above information post-hospitalization. Someone from our staff will contact you on Friday to set this up. It was a pleasure taking care of you! Please call if you have any questions or problems. You can reach a [facility] hospitalist on duty at [facility] 24 hours a day by calling [phone]. Take care of yourself. Kayley Gregorio DO [facility] Hospitalist Prescriptions: New sulfamethoxazole-trimethoprim 800-160 mg Tablet 1 tab PO Q12 Qty: 10 RF: 0 amlodipine 10 mg tablet 10 mg PO DAILY Qty: 30 RF: 1 metoprolol succinate 25 mg Tablet Extended Release 24 Hr 25 mg PO DAILY Qty: 30 RF: 1 Continued multivitamin Tablet 1 tab PO DAILY RF: 0 levothyroxine 25 mcg tablet 25 mcg PO DAILY RF: 0 ascorbic acid (vitamin C) [Vitamin C] 500 mg Tablet PO DAILY RF: 0 pravastatin [Pravachol] 20 mg tablet 20 mg PO DAILY RF: 0 meclizine 25 mg Tablet,Chewable 25 mg PO TID PRN (Reason: DIZZY) RF: 0 cholecalciferol (vitamin D3) [Vitamin D3] 1,000 unit Tablet 1,000 unit PO DAILY RF: 0 Discontinued metoprolol succinate [Toprol XL] 50 mg tablet extended release 24 hr 50 mg PO DAILY RF: 0 amlodipine [Norvasc] 5 mg tablet 5 mg PO DAILY RF: 0 Stand-Alone Forms: [facility] Discharge Orders: Discharge Order (Routine); Ordered 09/19/18 Ordered By: Kayley Gregorio Admission Data Admit Date/Time: 09/18/18 13:02 Attending Provider: Kayley Gregorio Admit Provider: Lester Shipman Primary Care Provider: Jorge Villagomez Other Providers: Lester Shipman Service: Telemetry Medical Other Interventions: Discharge Summary Assessment (RN) Last Done: 09/19/18 12:36 DC Date/Time DO NOT enter until pt leaves facility: 09/19/18 12:45
[2018-09-19] MEDS ORDERED: SULFAMETHOXAZOLE/TRIMETHOPRIM DS 800/160MG TAB PO SCH (21:00)
[2018-09-20] MEDS ORDERED: AMLODIPINE BESYLATE 5 MG TAB PO SCH (09:00)
== END 2018-09-19 12:45 | disposition home or self-care (01) | DRG 690 ==
LOC: ED 17:04 → 2N 17:04
DX: R00.1 Bradycardia, unspecified; N39.0 Urinary tract infection, site not specified; E78.5 Hyperlipidemia, unspecified; B96.20 Unspecified Escherichia coli [E. coli] as the cause of diseases classified elsewhere; I10 Essential (primary) hypertension; E86.0 Dehydration; W19.XXXA Unspecified fall, initial encounter; M81.0 Age-related osteoporosis without current pathological fracture; Z98.49 Cataract extraction status, unspecified eye; E03.9 Hypothyroidism, unspecified

== ENCOUNTER 2020-09-18 03:23 | Inpatient (IN) ==
--- NOTE | 2020-09-18 03:39 | Emergency Department Note ---
Impression & Plan Closed intertrochanteric fracture of right hip, Subdural effusion ED Provider Note Name: DEBORAH SORIANO Age: 89 Sex: F Arrives Via: Ambulance Informant: Patient, Family, EMS ED Provider: Roger Hamilton MD Chief Complaint: Fall Impression: See Above Medical Decision Makin yr old female arrives following fall at [facility]. Recent hospitalization at [facility] for SAH and discharged 2 days ago. After fall on right knee she was placed in her chair at [facility] and noted to have near syncope event like episode. She was awake, alert, oriented for EMS and here. She notes the pain was very severe and thus reason. She is breathing comfortably on arrival other than uncomfortable complaining right anterior thigh pain. Xrays with right intertroch fracture. CXR OK. CT head obtained due to recent ICH and this vague syncope complaint. Very prolonged time to CT read by [facility]. Concern new bilateral subdural effusions. Eventually able to send imaging to [facility] and Dr Thompson notes this is not significantly changed from CT at their facility. She is breathing comfortably without neuro deficits at this time and on several evaluations throughout. She received IV fentanyl and Dilaudid for pain control. She is stable and hospitalist will admit for further management. Prior Medical Record and Triage/Nursing Notes reviewed by Me Additional history obtained from chart Differentials:Infection, dehydration, metabolic abnormality, hypo/hyperglycemia, electrolyte disturbance, anemia, hypoxia, cardiac sources, intracerebral event, toxicologic, neurologic, as well as other pathologies. Vital Signs: reviewed and remarkable for HTN Interventions: saline lock, fentanyl 25mcg iv, dilaudid 0.5mg IV Labs:Reviewed and remarkable for no significant abnormalities Imaging:X ray results are stated below per my interpretation: Chest: 1 view: No infiltrate, no effusion, normal cardiac border. Pelvis/Right Femur: Right intertroch fracture [facility] Radiologist interpretation reviewed by me: "CT HEAD: Moderate volume loss. Minimal chronic ischemic changes. Trace left frontal parietal junction subarachnoid blood. Bilateral frontoparietal CSF density extra-axial collections. Sinuses, mastoids and the bones are intact. Comparison September 10, 2020. Near complete resolution of the subarachnoid blood. Interval development of the CSF density fluid collections.. Impression: Trace residual subarachnoid blood. Interval development of bilateral CSF density extra-axial collections possibly subdural effusions. Radiologist: Sumeet Moody M.D." EKG:Per My Interpretation: Indication Fall: NSR 73 bpm, qtc 469. No Ectopy. No Ischemia. Compared to EKG 09/10/20, no significant changes. Consults:Dr Roseanne Christensen Hospitalist. Dr Thompson & Sirisha Christensen Neurology: no significant change to CT Plan: Disposition:Hospitalization. Condition: Good History of Present Illness:89 yr old female arrives for evaluation of fall. Patient with recent UTI and fall with resultant SAH leading to admission to [facility] for the last week. She was at [facility] this evening when she went to get up and fall on her right knee. Denies hitting head, headache, neck pain, chest pain. Nursing staff helped her to chair where she says she got very lightheaded. Per EMS she reportedly "went out" for a few seconds. She states she doesn't quite remember passing out. EMS reports she was awake, alert and oriented on their arrival. She notes right distal thigh pain currently with mild right hip pain. Worse with movement, better with rest. No current chest pain, sob, headache, weakness, vision changes, neck pain, abdominal pain, nausea, vomiting, fevers, chills, back pain, nor other symptoms. States she was recently on antibiotic. She is on Lovenox 30mg BID for dvt prophylaxis. ROS: See above HPI for pertinent positives & negatives. A total of 10 systems reviewed and were otherwise negative. Past Medical History:See Below Past Surgical History:See Below Family History:See Below Social History:See Below Home Medications:See Below Allergies:See Below Vitals:Blood Pressure: 171/75, Pulse 74, RR 16, T 36.6C, O2 97% on RA Physical Exam: GENERAL: Patient is anxious appearing and in mild distress. EYES: No scleral icterus, unremarkable pupils. ENT: Mucous membranes moist, no nasal congestion. NECK: No masses appreciated, nomeningismus, trachea is midline. RESPIRATORY: No dyspnea. Clear to auscultation and equal bilaterally. No wheeze, no rhonchi. CARDIOVASCULAR: Regular rate and rhythm.No murmurs, rubs, gallops appreciated. GASTROINTESTINAL: Abdomen soft, non-tender, no peritonitis.Bowel sounds positive.No masses appreciated. BACK: No midline tenderness, no CVA tenderness EXTREMITIES: TTP over distal right thigh. Otherwise normal motion all extremities, no cyanosis, no edema. NEUROLOGIC: Alert and oriented, no acute motor or sensory deficits, no focal weakness, cranial nerves grossly intact. SKIN: No rash, no jaundice, no diaphoresis. PSYCH: Appropriate GCS: 15 ED Course: Times/Reassessments: Gradually improvement in pain. Multiple discussions with patient and daughters aware of fracture. Roger Hamilton MD Past Med/Surg History Medical History (Updated 09/18/20 @ 08:01 by Roger Hamilton MD) History of nephrolithiasis HLD (hyperlipidemia) HTN (hypertension) Hypothyroidism Osteoporosis Surgical History History of cataract extraction History of cystoscopy History of D&C History of ureter stent Family History Father Myocardial infarction, Onset Age: 69 Mother Pancreatic cancer, Onset Age: 69 Social History Smoking Status: Never smoker Second Hand Exposure: No; Hx Alcohol Use: No Hx Substance Use: No Preferred Language: [place] Communication Ability: Effective Painter Sign Maintenance Required: No Beliefs That Will Affect Care: None marital status: / Current Living Situation: Alone Current Living Situation Comment: Patient very independent, still drives, ambulates without assist device Feels Safe at Home: Yes Assistive Devices: Glasses Allergies Allergies Allergy/AdvReac Type Severity Reaction Status Date / Time chlorthalidone Allergy Severe Rash Verified 09/10/20 03:00 alendronate sodium AdvReac Intermediate Gastrointestinal Verified 09/10/20 03:00 [From Fosamax] Upset NSAIDS (Non-Steroidal AdvReac Intermediate Hypertensio Verified 09/10/20 03:00 Anti-Inflamma n Home Meds Home Medications Medication Instructions Recorded Confirmed ascorbic acid (vitamin C) 500 mg 0 mg PO DAILY 09/17/18 09/10/20 tablet (Vitamin C) levothyroxine 25 mcg tablet 25 mcg PO DAILY 09/17/18 09/10/20 meclizine 25 mg chewable tablet 25 mg PO TID PRN 09/17/18 09/10/20 multivitamin 1 tab PO DAILY 09/17/18 09/10/20 losartan 25 mg tablet 25 mg PO DAILY 09/10/20 09/10/20 pravastatin 20 mg tablet 20 mg PO DAILY 09/10/20 09/10/20 Previous Rx's Medication Instructions Recorded amlodipine 10 mg tablet 10 mg PO DAILY #30 tab 09/19/18 metoprolol succinate 25 mg 25 mg PO DAILY #30 tab 09/19/18 tablet,extended release 24 hr Results & Data (ED) Vital Signs Vital Signs - 24 hr 09/18/20 03:29 09/18/20 03:30 09/18/20 04:31 Temperature 36.6 C Temperature Source Oral Pulse Rate 74 79 Pulse Rate [Bilateral Finger] Pulse Rate from SpO2 Sensor 78 77 Respiratory Rate 16 17 Respiratory Effort / Characteristics Non-Labored Spontaneous Respiratory Depth Normal Respiratory Pattern Blood Pressure 171/75 H 171/75 H 202/84 H Blood Pressure [Right Arm] Blood Pressure Mean 107 107 123 Blood Pressure Mean [Right Arm] Pulse Oximetry 97 99 98 Oxygen Delivery Method Room Air Sepsis Recent Fever Within 48 Hours No Sepsis New/Unexplained Change in Mental Status No Sepsis Action Taken by Nursing No Action Required 09/18/20 04:32 09/18/20 05:00 09/18/20 05:30 Temperature Temperature Source Pulse Rate Pulse Rate [Bilateral Finger] 71 Pulse Rate from SpO2 Sensor 82 84 Respiratory Rate 16 Respiratory Effort / Characteristics Non-Labored Spontaneous Respiratory Depth Normal Respiratory Pattern Regular Blood Pressure 189/90 H 174/87 H Blood Pressure [Right Arm] 202/94 H Blood Pressure Mean 123 116 Blood Pressure Mean [Right Arm] 130 Pulse Oximetry 96 98 97 Oxygen Delivery Method Room Air Sepsis Recent Fever Within 48 Hours Sepsis New/Unexplained Change in Mental Status Sepsis Action Taken by Nursing 09/18/20 07:00 Temperature Temperature Source Pulse Rate Pulse Rate [Bilateral Finger] 90 Pulse Rate from SpO2 Sensor Respiratory Rate 18 Respiratory Effort / Characteristics Respiratory Depth Respiratory Pattern Blood Pressure Blood Pressure [Right Arm] 183/81 H Blood Pressure Mean Blood Pressure Mean [Right Arm] 115 Pulse Oximetry Oxygen Delivery Method Sepsis Recent Fever Within 48 Hours Sepsis New/Unexplained Change in Mental Status Sepsis Action Taken by Nursing Laboratory Data Result diagrams: 09/18/20 03:30 09/18/20 03:30 Lab Results 09/18/20 09/18/20 09/18/20 Range/Units 03:30 03:30 03:30 WBC 11.31 H (4.8-10.8) K/uL RBC 4.43 (4.2-5.4) M/uL Hgb 14.0 (12.0-16.0) g/dL Hct 40.9 (37-47) % MCV 92.3 (80-100) fL MCH 31.6 (25-34) pg MCHC 34.2 (32-36) g/dL RDW Std Deviation 46.4 H (36.4-46.3) fL RDW Coeff of Dennis 13.9 (11.5-14.5) % Plt Count 251 (130-400) K/uL MPV 10.4 (7.4-10.4) fL Immature Gran % (Auto) 0.4 % Neut % (Auto) 65.8 % Lymph % (Auto) 23.8 % [place] % (Auto) 9.7 % Eos % (Auto) 0.2 % Baso % (Auto) 0.1 % Neut # (Auto) 7.45 H (1.4-6.5) K/uL Lymph # (Auto) 2.69 (1.2-3.4) K/uL [place] # (Auto) 1.10 H (0.11-0.59) K/uL Eos # (Auto) 0.02 (0-0.5) K/uL Baso # (Auto) 0.01 (0-0.2) K/uL Immature Gran # (Auto) 0.04 H (0.00-0.02) K/uL Sodium 130 L (136-145) mmol/L Potassium 4.3 (3.5-5.1) mmol/L Chloride 96 L (98-107) mmol/L Carbon Dioxide 29 (21-32) mmol/L Anion Gap 5.0 (3-11) BUN 17 (7-18) mg/dl Creatinine 0.71 (0.6-1.2) mg/dl Est Cr Clr Drug Dosing 45.5 ml/min Est GFR ( Amer) 88.1 ml/min Est GFR (Non-Af Amer) 76.0 ml/min BUN/Creatinine Ratio 24.3 H (10-20) Glucose 132 H (70-99) mg/dl Calcium 9.4 (8.5-10.1) mg/dl Troponin I < 0.015 (0-0.045) ng/ml Specimen Hemolysis Urine Color Yellow Urine Appearance Clear (Clear) Urine pH 7.0 (4.5-7.5) Ur Specific [place] 1.015 (1.000-1.030) Urine Protein Negative (Negative) Urine Glucose (UA) Negative (Negative) Urine Ketones Negative (Negative) Urine Blood Negative (Negative) Urine Nitrite Negative (Negative) Urine Bilirubin Negative (Negative) Urine Urobilinogen Negative (Negative) Ur Leukocyte Esterase Negative (Negative) COVID-19 Eval Order SARS-CoV-2 (PCR) (Negative) 09/18/20 09/18/20 Range/Units 04:45 04:45 WBC (4.8-10.8) K/uL RBC (4.2-5.4) M/uL Hgb (12.0-16.0) g/dL Hct (37-47) % MCV (80-100) fL MCH (25-34) pg MCHC (32-36) g/dL RDW Std Deviation (36.4-46.3) fL RDW Coeff of Dennis (11.5-14.5) % Plt Count (130-400) K/uL MPV (7.4-10.4) fL Immature Gran % (Auto) % Neut % (Auto) % Lymph % (Auto) % [place] % (Auto) % Eos % (Auto) % Baso % (Auto) % Neut # (Auto) (1.4-6.5) K/uL Lymph # (Auto) (1.2-3.4) K/uL [place] # (Auto) (0.11-0.59) K/uL Eos # (Auto) (0-0.5) K/uL Baso # (Auto) (0-0.2) K/uL Immature Gran # (Auto) (0.00-0.02) K/uL Sodium (136-145) mmol/L Potassium (3.5-5.1) mmol/L Chloride (98-107) mmol/L Carbon Dioxide (21-32) mmol/L Anion Gap (3-11) BUN (7-18) mg/dl Creatinine (0.6-1.2) mg/dl Est Cr Clr Drug Dosing ml/min Est GFR ( Amer) ml/min Est GFR (Non-Af Amer) ml/min BUN/Creatinine Ratio (10-20) Glucose (70-99) mg/dl Calcium (8.5-10.1) mg/dl Troponin I (0-0.045) ng/ml Specimen Hemolysis Urine Color Urine Appearance (Clear) Urine pH (4.5-7.5) Ur Specific [place] (1.000-1.030) Urine Protein (Negative) Urine Glucose (UA) (Negative) Urine Ketones (Negative) Urine Blood (Negative) Urine Nitrite (Negative) Urine Bilirubin (Negative) Urine Urobilinogen (Negative) Ur Leukocyte Esterase (Negative) COVID-19 Eval Order Cov[address] [facility] SARS-CoV-2 (PCR) NEGATIVE (Negative) Administered Medications Discontinued Medications Fentanyl Citrate (Fentanyl Citrate 100 Mcg/2 Ml Vial) 25 mcg IV NOW STA Stop: 09/18/20 04:35 Last Admin: 09/18/20 04:37 Dose: 25 mcg Documented by: [id number] Hydromorphone HCl (Hydromorphone Inj 0.5 Mg/0.5 Ml Syr) 0.5 mg IV NOW STA Stop: 09/18/20 05:01 Last Admin: 09/18/20 05:04 Dose: 0.5 mg Documented by: [id number] Sodium Chloride (Nss 1000ml) 500 mls @ 999 mls/hr IV .Q31M ONE Stop: 09/18/20 05:12 Last Infusion: 09/18/20 05:42 Dose: 0 mls/hr Documented by: [id number] Admin: 09/18/20 04:46 Dose: 999 mls/hr Documented by: [id number] Imaging Data Radiologist's Impression: Chest X-Ray 09/18/20 03:34 XR chest 1V portable CLINICAL HISTORY: Trauma. Weakness. COMPARISON STUDY: 09/10/2020 FINDINGS: The patient remains hyperinflated. There is no pneumothorax. There is no focal pulmonary consolidation. There is no overt failure. There are no pleural effusions.[ IMPRESSION: Hyperinflation. No acute findings. ACT 112: Negative or not required by law. Electronically signed by: Jared Randhawa M.D. 09/18/2020 7:22 AM Femur X-Ray 09/18/20 03:34 XR femur RT 2V routine CLINICAL HISTORY: right distal thigh pain COMPARISON: None. DISCUSSION: There is acute intertrochanteric right hip fracture. No additional femoral fractures are visualized. There are degenerative changes within the with chondrocalcinosis. There is distal quadriceps calcification. IMPRESSION: Intertrochanteric right hip fracture. ACT 112: Negative or not required by law. Electronically signed by: Jared Randhawa M.D. 09/18/2020 7:[address] 09/18/20 03:34 CT head/brain wo con CLINICAL HISTORY: fall, syncope, recent SAH bilateral COMPARISON STUDY: 09/10/2020 TECHNIQUE: Axial CT of the brain is performed from the vertex to the skull base. IV contrast was not administered for this examination. A dose lowering technique was utilized adhering to the principles of ALARA. CT DOSE: 537.48 mGy.cm FINDINGS: Since the prior study, the patient has developed bilateral extra-axial low- density fluid collections, consistent with subdural hygromas/subacute hematomas. There is decreased subarachnoid blood within the left parietal vertices. No intraparenchymal hemorrhage is visualized. There is no CT evidence of acute cortical infarction. There is no midline shift.. There are patchy white matter hypodensities likely on a small vessel basis. 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 There is no evidence of pathologic ventricular dilatation. There is no evidence of acute sinusitis. No acute calvarial fractures are visualized. IMPRESSION: 1. Decreasing subarachnoid hemorrhage 2. No evidence of acute intraparenchymal hemorrhage 3. Developing bilateral low density extra-axial CSF collections, subdural hygromas versus subacute subdural hematomas ACT 112: Negative or not required by law. Electronically signed by: Jared Randhawa M.D. 09/18/2020 6:49 AM Pelvis X-Ray 09/18/20 03:34 XR pelvis 1-2V routine CLINICAL HISTORY: Pelvic pain status post trauma COMPARISON: None. DISCUSSION: The bones are osteopenic. There is an acute intertrochanteric right hip fracture. There are no musculotendinous calcifications involving the insertions at the level of the inferior ischial spines. IMPRESSION: Acute intertrochanteric right hip fracture. ACT 112: Negative or not required by law. Electronically signed by: Jared Randhawa M.D. 09/18/2020 7:21 AM Discharge Plan Visit Data Chief Complaint: Fall Stated Complaint: right knee pain ED Provider: Roger Hamilton Discharge Problem: Closed intertrochanteric fracture of right hip, Subdural effusion Forms Stand Alone Forms: My [facility] Prescriptions Prescriptions: No Action multivitamin Tablet 1 tab PO DAILY RF: 0 levothyroxine 25 mcg tablet 25 mcg PO DAILY RF: 0 ascorbic acid (vitamin C) [Vitamin C] 500 mg Tablet 0 mg PO DAILY RF: 0 meclizine 25 mg Tablet,Chewable 25 mg PO TID PRN (Reason: DIZZY) RF: 0 amlodipine 10 mg tablet 10 mg PO DAILY Qty: 30 RF: 1 metoprolol succinate 25 mg Tablet Extended Release 24 Hr 25 mg PO DAILY Qty: 30 RF: 1 losartan 25 mg tablet 25 mg PO DAILY RF: 0 pravastatin 20 mg tablet 20 mg PO DAILY RF: 0 Referrals Referrals: Catrina Cabrera MD [Outside Practitioners] - Discharge Problem: Closed intertrochanteric fracture of right hip Qualifiers: Encounter type: initial encounter Fracture alignment: nondisplaced Qualified Code(s): S72.144A - Nondisplaced intertrochanteric fracture of right femur, initial encounter for closed fracture
[2020-09-18 03:46] LABS: Basophils # (auto) 0.01 K/uL (0-0.2); Basophils % (auto) 0.1 %; Eosinophils # (auto) 0.02 K/uL (0-0.5); Eosinophils % (auto) 0.2 %; Hematocrit (blood only) 40.9 % (37-47); Immature Granulocytes # (auto) 0.04 K/uL (0.00-0.02); Immature Granulocytes % (auto) 0.4 %; Lymphocytes # (auto) 2.69 K/uL (1.2-3.4); Lymphocytes % (auto) 23.8 %; Mean Corpuscular Hemoglobin 31.6 pg (25-34); Mean Corpuscular Hgb Conc 34.2 g/dL (32-36); Mean Corpuscular Volume 92.3 fL (80-100); Mean Platelet Volume 10.4 fL (7.4-10.4); Monocytes % (auto) 9.7 %; Neutrophils # (auto) 7.45 K/uL (1.4-6.5); Neutrophils % (auto) 65.8 %; Platelet Count 251 K/uL (130-400); RDW Coefficient of Variation 13.9 % (11.5-14.5); RDW Standard Deviation 46.4 fL (36.4-46.3); Red Blood Count 4.43 M/uL (4.2-5.4); White Blood Count 11.31 K/uL (4.8-10.8)
[2020-09-18 04:14] LABS: BUN Creatinine Ratio 24.3 (10-20); Blood Urea Nitrogen 17 mg/dl (7-18); Calcium 9.4 mg/dl (8.5-10.1); Carbon Dioxide 29 mmol/L (21-32); Chloride 96 mmol/L (98-107); Creatinine Clr Calc Pharmacy 45.5 ml/min; Est GFR (African American) 88.1 ml/min; Glucose 132 mg/dl (70-99); Potassium 4.3 mmol/L (3.5-5.1); Sodium 130 mmol/L (136-145); Troponin I < 0.015 ng/ml (0-0.045)
[2020-09-18 04:20] LABS: Appearance Urine Clear (Clear); Bilirubin Urine Negative (Negative); Blood Urine Negative (Negative); Color Urine Yellow; Glucose Urine UA Negative (Negative); Ketones Urine Negative (Negative); Leukocyte Esterase Urine Negative (Negative); Nitrite Urine Negative (Negative); Protein Urine Negative (Negative); Specific Gravity Urine 1.015 (1.000-1.030); Urobilinogen Urine Negative (Negative)
[2020-09-18] MEDS ORDERED: fentaNYL citrate 100 MCG/2 ML VIAL IV STA (04:34)
[2020-09-18] MEDS ORDERED: SODIUM CHLORIDE 0.9% 1000ML 500 ML IV ONE (04:42)
[2020-09-18] MEDS ORDERED: HYDROmorphone INJ 0.5 MG/0.5 ML SYR IV STA (05:00)
--- NOTE | 2020-09-18 06:51 | CT Scan Report ---
CT head/brain wo con CLINICAL HISTORY: fall, syncope, recent SAH bilateral COMPARISON STUDY: 09/10/2020 TECHNIQUE: Axial CT of the brain is performed from the vertex to the skull base. IV contrast was not administered for this examination. A dose lowering technique was utilized adhering to the principles of ALARA. CT DOSE: 537.48 mGy.cm FINDINGS: Since the prior study, the patient has developed bilateral extra-axial low-density fluid collections, consistent with subdural hygromas/subacute hematomas. There is decreased subarachnoid blood within t he left parietal vertices. No intraparenchymal hemorrhage is visualized. There is no CT evidence of a cute cortical infarction. There is no midline shift.. There are patchy white matter hypodensities likely on a small vessel basis. There is an old left basa l ganglia lacunar infarct. There is no evidence of pathologic ventricular dilatation. There is no evidence of acute sinusitis. No acute calvarial fractures are visualized. IMPRESSION: 1. Decreasing subarachnoid hemorrhage 2. No evidence of acute intraparenchymal hemorrhage 3. Developing bilateral low density extra-axial CSF collections, subdural hygromas versus subacute melgar bdural hematomas ACT 112: Negative or not required by law. Electronically signed by: Jared Randhawa M.D. 09/18/2020 6:49 AM
--- NOTE | 2020-09-18 07:22 | XRay Report ---
XR femur RT 2V routine CLINICAL HISTORY: right distal thigh pain COMPARISON: None. DISCUSSION: There is acute intertrochanteric right hip fracture. No additional femoral fractures are visualized. There are degenerative changes within the with chondrocalcinosis. There is distal quadric eps calcification. IMPRESSION: Intertrochanteric right hip fracture. ACT 112: Negative or not required by law. Electronically signed by: Jared Randhawa M.D. 09/18/2020 7:20 AM
--- NOTE | 2020-09-18 07:23 | XRay Report ---
XR pelvis 1-2V routine CLINICAL HISTORY: Pelvic pain status post trauma COMPARISON: None. DISCUSSION: The bones are osteopenic. There is an acute intertrochanteric right hip fracture. There a re no musculotendinous calcifications involving the insertions at the level of the inferior ischial s pines. IMPRESSION: Acute intertrochanteric right hip fracture. ACT 112: Negative or not required by law. Electronically signed by: Jared Randhawa M.D. 09/18/2020 7:21 AM
--- NOTE | 2020-09-18 07:23 | XRay Report ---
XR chest 1V portable CLINICAL HISTORY: Trauma. Weakness. COMPARISON STUDY: 09/10/2020 FINDINGS: The patient remains hyperinflated. There is no pneumothorax. There is no focal pulmonary co nsolidation. There is no overt failure. There are no pleural effusions.[ IMPRESSION: Hyperinflation. No acute findings. ACT 112: Negative or not required by law. Electronically signed by: Jared Randhawa M.D. 09/18/2020 7:22 AM
--- NOTE | 2020-09-18 09:04 | History and Physical Report ---
DATE OF ADMISSION: 09/18/2020. CHIEF COMPLAINT: Status post fall and right hip fracture. HISTORY OF PRESENT ILLNESS: An 89-year-old female with past medical history significant for hyperlipidemia, subclinical hypothyroidism, history of mitral valve prolapse, hypertension, varicose veins of lower extremities, history of UTI, history of osteoporosis, bilateral leg edema, history of delirium, history of insomnia, history of generalized anxiety disorder, history of recent fall at home and traumatic subarachnoid hemorrhage. At that time, she was transferred from [facility] to [facility] on 09/10/2020. She was started on Keppra to continue until 09/17/2020 and her CAT scan remained stable and she was advised not to take any antiplatelet/anticoagulation medication until seen by neurosurgery in followup. She was also found to have a pericardial effusion. Evaluated by cardiology team, to follow up with cardiology in 1 month. She was treated with antibiotics for UTI and discharged to [facility] on 09/16/2020. The patient says she was trying to walk in the night, trying to reach her walker when she fell on her knees. She hit her head, but not very mildly, no loss of consciousness and she was brought in here .Question of passing out for a few seconds, but the patient denies it. She does not remember passing out. She complained of some thigh pain and brought in here and found to have a right hip fracture. Currently, resting comfortably and hemodynamically stable, alert and awake, oriented to name and place, confused with the dates. Denies any headache, denies any blurred visions, no earache, no runny nose. She says, once in a while, she has some cough. No chest pain, no shortness of breath. Says once in a while she gets abdominal pain. Currently, no abdominal pain. She says she moved her bowels in the morning. Normal bladder movements. Currently, hemodynamically stable. ALLERGIES: CHLORTHALIDONE, ALENDRONATE, NSAIDS. PAST MEDICAL HISTORY: As mentioned above. PAST SURGICAL HISTORY: Cystoscopy with insertion of stent, lithotripsy, dilatation and curettage, cataract surgeries. MEDICATIONS: The patient was discharged on Lovenox 30 mg under the skin daily for 14 days, Keppra 500 mg p.o. b.i.d., last dose was supposed to be on 09/17/2020, losartan 25 mg p.o. daily, pravastatin 20 mg p.o. daily, Lasix 20 mg p.o. on Friday, Friday, and Friday, Toprol-XL 25 mg p.o. daily, amlodipine 10 mg p.o. daily, sertraline 25 mg p.o. daily, levothyroxine 25 mcg p.o. daily, multivitamins 1 tablet p.o. daily. FAMILY HISTORY: Significant for mother had pancreatic cancer, father had [place]. SOCIAL HISTORY: , currently living at [facility]. No smoking, no alcohol, no drug use. REVIEW OF SYSTEMS: As per HPI. Rest of the review of systems is negative. PHYSICAL EXAMINATION: GENERAL: The patient is alert and awake, not in acute distress. VITAL SIGNS: Temperature 36.6, pulse 71, respiratory rate 16, blood pressure 174/87, oxygen 97% on room air. HEENT: Pupils equal, round and reactive to light. Oral mucosa moist. NECK: No JVD, no neck masses. CARDIOVASCULAR: S1 and S2 heard. Regular rate and rhythm. No murmur, no gallop. RESPIRATORY SYSTEM: Normal AP diameter. No accessory muscle use. No wheezing, no crackles. ABDOMEN: Soft, bowel sounds present, nontender, no distention. CENTRAL NERVOUS SYSTEM: Alert and awake, oriented to name and place. Speech clear. No facial droop seen. Obeys simple commands. EXTREMITIES: No edema, no erythema. Right lower extremity is shortened. LABORATORY DATA: WBC 11.3, hemoglobin 14, hematocrit 40.9, platelets 251. Sodium 130, potassium 4.3, chloride 96, CO2 of 29, BUN 17, creatinine 0.7, serum glucose 132, calcium 9.4. Troponin less than 0.015. Urinalysis negative. SARS-CoV-2 PCR negative. IMAGING: CT of the head preliminary report: Trace residual subarachnoid blood. Interval development of bilateral CSF density extraaxial collections, possibly subdural effusions. EKG: Sinus rhythm with marked sinus arrhythmia at a rate of 73, nonspecific T-wave abnormalities. ASSESSMENT AND PLAN: This is an 89-year-old female who presents with fall and right hip fracture. 1. Right hip fracture: The patient is moderate to high risk for the procedure because of her age and comorbid conditions, recent fall and subarachnoid hemorrhage. Pain control. We will keep her n.p.o. and orthopedics consult and gentle fluids. 2. Recent subarachnoid hemorrhage, subdural effusions on CAT scan today, recently observed in [place]: Er physician talked with [facility]. images were forwarded. As per Er physician Notes Neurology at [place] [address] head today not much different and no concerning findings.Will monitor and any concerns will call [place]. 3. History of hypertension: Continue losartan and Toprol-XL. We will monitor the blood pressure. 4. History of hypothyroidism: Continue Synthroid. 5. History of hyperlipidemia: Continue statin. 6. History of bilateral leg edema: On Lasix 3 times a week, we will continue. 7. History of generalized anxiety disorder: On sertraline. 8. Deep venous thrombosis prophylaxis: No anticoagulation secondary to recent subarachnoid hemorrhage and also because of possible procedure for the right hip fracture. If Hip surgery planned need to discuss with neurology/neurosurgery for post surgery dvt prophylaxis. 9. Code status: Full code for now. DISPOSITION: Closely monitor in the med-tele. PT/OT prior to discharge. Social service to help with discharge planning. Job ID: [id number] [facility]
[2020-09-18] MEDS ORDERED: ONDANSETRON INJ 2 MG/ML 2 ML VIAL IV PRN (10:11)
[2020-09-18] MEDS ORDERED: NITROGLYCERIN SL 0.4 MG/TAB TAB SL PRN (10:11)
[2020-09-18] MEDS: amLODIPine BESYLATE 5 MG TAB PO SCH (10:50)
[2020-09-18] MEDS: SODIUM CHLORIDE 0.9% 1000ML 1,000 ML IV SCH ×2 (10:51→23:37)
[2020-09-18] MEDS: METOPROLOL SUCC 25MG EXT REL TAB PO SCH (10:51)
[2020-09-18] MEDS: MULTIVITAMIN TAB PO SCH (10:51)
[2020-09-18] MEDS: ACETAMINOPHEN 325 MG TAB PO PRN (11:09)
[2020-09-18] MEDS: LOSARTAN POTASSIUM 25 MG TAB PO SCH (12:01)
[2020-09-18] MEDS: PRAVASTATIN SOD 20 MG TAB PO SCH (12:01)
[2020-09-18] MEDS: LEVOTHYROXINE SODIUM 25 MCG TABLET PO SCH (12:01)
[2020-09-18] MEDS: ASCORBIC ACID 500 MG TAB PO SCH (13:03)
--- NOTE | 2020-09-18 13:26 | Electrocardiogram Report ---
Test Reason : Blood Pressure : / mmHG Vent. Rate : 073 BPM Atrial Rate : 073 BPM P-R Int : 192 ms QRS Dur : 076 ms QT Int : 426 ms P-R-T Axes : 087 062 093 degrees QTc Int : 469 ms Poor data quality, interpretation may be adversely affected Sinus rhythm with marked sinus arrhythmia Nonspecific ST and T wave abnormality Abnormal ECG When compared with ECG of 10-SEP-2020 03:34, CT interval has decreased Confirmed by Reagan Zapata ([id number]) on 09/18/2020 1:26:16 PM Referred By: Catrina Cabrera Confirmed By:Reagan Zapata
--- NOTE | 2020-09-18 19:41 | Orthopedic Consultation ---
Date of Consultation September 18, 2020 Assessment & Plan (1) Closed intertrochanteric fracture of right hip: X-rays reviewed with [place] [facility] physician. Patient will require a right trochanteric femoral nailing. I discussed the case with her daughter who is in agreement for surgery. Its been noted that the patient is not to have any kind of anticoagulants or antiplatelet medications. We will continue SCDs and MARIAH ballard. Medicine service to contact neurosurgery in [place] to discuss possible anticoagulation postoperatively. If she is medically cleared, we can do her surgery tomorrow afternoon. History of Present Illness Reason for Consultation: Right intertrochanteric hip fracture Attending Physician: Lester Shipman, DO History of Present Illness Patient is a 89-year-old white female with past medical history significant for hyperlipidemia, subclinical hypothyroidism, history of mitral valve prolapse, hypertension, varicose veins of lower extremities, history of UTI, history of osteoporosis, bilateral leg edema, history of delirium, history of insomnia, history of generalized anxiety disorder, history of recent fall at home and traumatic subarachnoid hemorrhage. She had been transferred down to [facility] with her subarachnoid hemorrhage and was treated. This was on 09/10/2020. Her hemorrhage remained stable and she was transferred to [facility] to continue recovering from her SAH. History is taken from the chart and also from the patient's daughter. Patient does answer some questions appropriately but is somewhat confused at this time. The patient was apparently ambulating in the middle of the night and ended up falling. She was having difficulty ambulating and she was brought to the emergency room. It was found that she had a intertrochanteric hip fracture of the right hip. She was admitted for further care and we have been asked to see her for her hip fracture. Allergies Allergy/AdvReac Type Severity Reaction Status Date / Time chlorthalidone Allergy Severe Rash Verified 09/10/20 03:00 alendronate sodium AdvReac Intermediate Gastrointestinal Verified 09/10/20 03:00 [From Fosamax] Upset NSAIDS (Non-Steroidal AdvReac Intermediate Hypertensio Verified 09/10/20 03:00 Anti-Inflamma n Home Medications Medication Instructions Recorded Confirmed Type levothyroxine 25 mcg tablet 25 mcg PO DAILY 09/17/18 09/18/20 History multivitamin 1 tab PO DAILY 09/17/18 09/18/20 History metoprolol succinate 25 mg 25 mg PO DAILY #30 tab 09/19/18 09/18/20 Rx tablet,extended release 24 hr losartan 25 mg tablet 25 mg PO DAILY 09/10/20 09/18/20 History pravastatin 20 mg tablet 20 mg PO DAILY 09/10/20 09/18/20 History amlodipine 10 mg tablet 10 mg PO DAILY 09/18/20 09/18/20 History enoxaparin 30 mg/0.3 mL 30 mg SUBCUT Q12H 09/18/20 09/18/20 History subcutaneous syringe furosemide 20 mg tablet 20 mg PO Q OTHER DAY 09/18/20 09/18/20 History levetiracetam 500 mg tablet 500 mg PO BID 09/18/20 09/18/20 History sertraline 25 mg tablet 25 mg PO DAILY 09/18/20 09/18/20 History tuberculin PPD (Tubersol) 5 tb unit INTRADERMAL DIRECTED 09/18/20 09/18/20 History Patient History Medical History (Updated 09/19/20 @ 13:10 by Andrew Rey DO) History of nephrolithiasis HLD (hyperlipidemia) HTN (hypertension) Hypothyroidism Osteoporosis Surgical History (Updated 09/19/20 @ 13:00 by Lester Shipman DO) History of cataract extraction History of cystoscopy Family History Father Myocardial infarction, Onset Age: 69 Mother Pancreatic cancer, Onset Age: 69 Social History Smoking Status: Never smoker Second Hand Exposure: No (N/a); Tobacco Cessation Education Requested by Patient: No Hx Alcohol Use: No Hx Substance Use: No Preferred Language: Irish Communication Ability: Effective Survey Analyst Required: Yes Beliefs That Will Affect Care: Spiritism Spiritism Beliefs: Sikhism- First sikhism of karly marital status: / Current Living Situation: Family Current Living Situation Comment: Hetal's sister/[id number]. Other Information That Helps Us Care for You: No Feels Safe at Home: Yes Safety Concerns: Feels Safe At This Time Assistive Devices: Glasses Assistive Devices Comment: Walker/cane, previously used devices at home. Review of Systems Review of Systems: All systems reviewed & are unremarkable except as noted in HPI & below Patient was treated for a UTI during her stay at [facility]. Physical Exam Physical Exam: Upon entering the room, the patient is fumbling with her IV machine and tubing. When I address her she does know her name and she becomes more focused but is still confused. She appears to be in no acute distress and is pleasant and cooperative. On examination of her right lower extremity, it is shortened and externally rotated compared to the left. She is tender on palpation of the right lateral hip and no range of motion is done at this time secondary to her hip fracture. Her right knee is nontender on palpation and there does not appear to be any large effusion. She has good range of motion of her right ankle and toes and sensation is intact. Left lower extremity appears to be unaffected and is nontender at the hip knee and ankle. Range of motion appears to be within normal limits. Upper extremities are nontender at the shoulders, elbows, and wrists. Range of motion is intact. Distal pulses are equal laterally of the upper and lower extremities. There is no gross motor or sensory loss seen at this time. Results & Data ([facility]) Vital Signs (Past 12 Hours) Vital Signs Temp Pulse Pulse Resp BP Pulse Ox 09/18/20 16:10 84 09/18/20 15:49 36.6 C 94 H 20 159/68 H 94 09/18/20 14:59 36.6 C 90 18 142/68 H 09/18/20 14:27 101 H 09/18/20 10:10 36.6 C 60 18 176/75 H 96 09/18/20 10:00 94 H 09/18/20 09:00 98 H 18 181/90 H 96 Diagnostic Findings Patient: DEBORAH SORIANO Date: 09/18/20MR#: [id number]: 100 [place] DRAcct ID:[id number]: 201ABirth Date: [address] [place] [address] Zip: [place], [place] [address]Pfr: 89Location: EDSex: FRoom/Bed:Att Phy:Diagnosis: FALL w/ LOCPri Phy: Sallie Hoang, DOService Date: 09/18/20Fa Phy:Interpreting Phy: Jared Randhawa [facility] Phy: Ordering Phy: Joy, Roger F., M.D. cc: ~ XR pelvis 1-2V routine CLINICAL HISTORY: Pelvic pain status post trauma COMPARISON: None. DISCUSSION: The bones are osteopenic. There is an acute intertrochanteric right hip fracture. There are no musculotendinous calcifications involving the insertions at the level of the inferior ischial spines. IMPRESSION: Acute intertrochanteric right hip fracture. (1) Closed intertrochanteric fracture of right hip Encounter type: initial encounter Fracture alignment: nondisplaced Qualified Code(s): S72.144A - Nondisplaced intertrochanteric fracture of right femur, initial encounter for closed fracture
[2020-09-19] MEDS: MoRPHine SULFATE 2 MG/ML CARP IV PRN (00:01)
[2020-09-19] MEDS: LEVOTHYROXINE SODIUM 25 MCG TABLET PO SCH (06:42)
[2020-09-19] MEDS: amLODIPine BESYLATE 5 MG TAB PO SCH (09:07)
[2020-09-19] MEDS: PRAVASTATIN SOD 20 MG TAB PO SCH (09:07)
[2020-09-19] MEDS: ASCORBIC ACID 500 MG TAB PO SCH (09:08)
[2020-09-19] MEDS: METOPROLOL SUCC 25MG EXT REL TAB PO SCH (09:08)
[2020-09-19] MEDS: MULTIVITAMIN TAB PO SCH (09:08)
[2020-09-19] MEDS: LOSARTAN POTASSIUM 25 MG TAB PO SCH (10:25)
[2020-09-19] MEDS: SODIUM CHLORIDE 0.9% 1000ML 1,000 ML IV SCH (11:58)
--- NOTE | 2020-09-19 12:58 | Anesthesiology Consultation ---
Date of Service September 19, 2020 Assessment & Plan (1) Encounter for pre-operative examination: Chart Review Chart Review: order entry specialist initiated History Surgery Operation Date: 09/19/20 09:35 Proposed Procedures p Right Troch Nail - Jayjay Vazquez DO Height/Weight Height: 5 ft 6 in Weight: 49 kg Allergies Allergy/AdvReac Type Severity Reaction Status Date / Time chlorthalidone Allergy Severe Rash Verified 09/10/20 03:00 alendronate sodium AdvReac Intermediate Gastrointestinal Verified 09/10/20 03:00 [From Fosamax] Upset NSAIDS (Non-Steroidal AdvReac Intermediate Hypertensio Verified 09/10/20 03:00 Anti-Inflamma n Medications Home Medications Medication Instructions Recorded Confirmed Last Taken levothyroxine 25 mcg tablet 25 mcg PO DAILY 09/17/18 09/18/20 09/09/20 multivitamin 1 tab PO DAILY 09/17/18 09/18/20 09/09/20 metoprolol succinate 25 mg 25 mg PO DAILY #30 tab 09/19/18 09/18/20 09/09/20 tablet,extended release 24 hr losartan 25 mg tablet 25 mg PO DAILY 09/10/20 09/18/20 09/09/20 pravastatin 20 mg tablet 20 mg PO DAILY 09/10/20 09/18/20 09/09/20 amlodipine 10 mg tablet 10 mg PO DAILY 09/18/20 09/18/20 Unknown enoxaparin 30 mg/0.3 mL 30 mg SUBCUT Q12H 09/18/20 09/18/20 Unknown subcutaneous syringe furosemide 20 mg tablet 20 mg PO Q OTHER DAY 09/18/20 09/18/20 Unknown levetiracetam 500 mg tablet 500 mg PO BID 09/18/20 09/18/20 Unknown sertraline 25 mg tablet 25 mg PO DAILY 09/18/20 09/18/20 Unknown tuberculin PPD (Tubersol) 5 tb unit INTRADERMAL DIRECTED 09/18/20 09/18/20 09/16/20 Active Medications Generic Name Dose Route Start Last Admin Trade Name Freq PRN Reason Stop Dose Admin Acetaminophen 650 mg 09/18/20 10:11 09/18/20 11:09 Acetaminophen 325 Mg Tab PO 10/18/20 10:10 650 mg Q4H PRN Administration Pain or Fever Amlodipine Besylate 10 mg 09/18/20 10:11 09/19/20 09:07 Amlodipine Besylate 5 Mg Tab PO 10/18/20 10:10 10 mg DAILY ABDULLAHI Administration Ascorbic Acid 500 mg 09/18/20 10:11 09/19/20 09:08 Ascorbic Acid 500 Mg Tab PO 10/18/20 10:10 500 mg DAILY ABDULLAHI Administration Sodium Chloride 1,000 mls @ 80 mls/hr 09/18/20 10:11 09/19/20 12:59 Nss 1000ml IV 10/18/20 10:10 0 mls/hr .[id number] ABDULLAHI Infusion Levothyroxine Sodium 25 mcg 09/18/20 10:11 09/19/20 06:42 Levothyroxine Sodium 25 Mcg Tablet PO 10/18/20 10:10 25 mcg DAILYBB ABDULLAHI Administration Losartan Potassium 25 mg 09/18/20 10:11 09/19/20 10:25 Losartan Potassium 25 Mg Tab PO 10/18/20 10:10 25 mg DAILY ABDULLAHI Administration Metoprolol Succinate 25 mg 09/18/20 10:11 09/19/20 09:08 Metoprolol Succ 25mg Ext Rel Tab PO 10/18/20 10:10 25 mg DAILY ABDULLAHI Administration Morphine Sulfate 2 mg 09/18/20 23:46 09/19/20 00:01 Morphine Sulfate 2 Mg/Ml Carp IV 10/02/20 23:45 2 mg Q3H PRN Administration Pain Multivitamins 1 tab 09/18/20 10:11 09/19/20 09:08 Multivitamin Tab PO 10/18/20 10:10 1 tab DAILY ABDULLAHI Administration Pravastatin Sodium 20 mg 09/18/20 10:11 09/19/20 09:07 Pravastatin Sod 20 Mg Tab PO 10/18/20 10:10 20 mg DAILY ABDULLAHI Administration NPO Date Last Intake of Fluids: 09/19/20 Time Last Intake of Fluids: 10:25 Last Intake of Fluids Comment: water given with AM medications Date Last Intake of Solids: 09/18/20 Past Medical History Medical History (Updated 09/19/20 @ 13:10 by Andrew Rey DO) History of nephrolithiasis HLD (hyperlipidemia) HTN (hypertension) Hypothyroidism Osteoporosis Past Family History Family History Father Myocardial infarction, Onset Age: 69 Mother Pancreatic cancer, Onset Age: 69 Past Surgical History Surgical History (Updated 09/19/20 @ 13:00 by Lester Shipman DO) History of cataract extraction History of cystoscopy Social History Smoking Status: Never smoker Hx Alcohol Use: No Hx Substance Use: No substance use type: does not use Physical Exam Vital Signs Last Vital Signs Temp 97.3 F L 09/19/20 07:46 Pulse 94 H 09/19/20 09:24 Resp 20 09/19/20 07:46 BP 184/76 H 09/19/20 07:46 Pulse Ox 97 09/19/20 07:46 Testing Laboratory Results 09/18/20 03:30 09/18/20 03:30 Urine Color Yellow 09/18/20 03:30 Urine Appearance Clear (Clear) 09/18/20 03:30 Urine pH 7.0 (4.5-7.5) 09/18/20 03:30 Ur Specific [place] 1.015 (1.000-1.030) 09/18/20 03:30 Urine Protein Negative (Negative) 09/18/20 03:30 Urine Glucose (UA) Negative (Negative) 09/18/20 03:30 Urine Ketones Negative (Negative) 09/18/20 03:30 Urine Nitrite Negative (Negative) 09/18/20 03:30 Ur Leukocyte Esterase Negative (Negative) 09/18/20 03:30 Laboratory Tests 09/18/20 04:45 SARS-CoV-2 (PCR) NEGATIVE Electrocardiogram Date: 09/18/20 Poor data quality, interpretation may be adversely affected, rate 73 bpm Sinus rhythm with marked sinus arrhythmia, rate [address] and T wave abnormality Abnormal ECG When compared with ECG of 10-SEP-2020 03:34, [place] interval has decreased Confirmed by Reagan Zapata ([id number]) on 09/18/2020 1:26:16 PM Chest X-Ray Date: 09/18/20 IMPRESSION: Hyperinflation. No acute findings. Other Testing CT head 09/18/20 IMPRESSION: 1. Decreasing subarachnoid hemorrhage 2. No evidence of acute intraparenchymal hemorrhage 3. Developing bilateral low density extra-axial CSF collections, subdural hygromas versus subacute subdural hematomas
--- NOTE | 2020-09-19 13:01 | Hospitalist Progress Note ---
Date of Service September 19, 2020 Assessment & Plan (1) Closed intertrochanteric fracture of right hip: (2) Fall: (3) UTI (urinary tract infection): (4) Subarachnoid hemorrhage: (5) HTN (hypertension): (6) Subdural effusion: (7) HLD (hyperlipidemia): (8) Hypothyroidism: (9) Osteoporosis: (10) History of cataract extraction: (11) DVT prophylaxis: Plan: ASSESSMENT AND PLAN: This is an 89-year-old female who presents with fall and right hip fracture. 1. Right hip fracture: The patient is moderate to high risk for the procedure because of her age and comorbid conditions, recent fall and subarachnoid hemorrhage. Pain control. Ortho on case, May proceed to OR today, Delay would increase Morbidity 2. Recent subarachnoid hemorrhage, subdural effusions on CT scan today, recently observed in [place]: ER physician talked with [place] [facility]. images were forwarded. As per ER physician Notes Neurology at [place] CT head today-not much different and no concerning findings. No A/C or DVT PFX, SCDs ok 3. History of hypertension: Continue losartan and Toprol-XL. We will monitor the blood pressure. 4. History of hypothyroidism: Continue Synthroid. 5. History of hyperlipidemia: Continue statin. 6. History of bilateral leg edema: On Lasix 3 times a week, we will continue. 7. History of generalized anxiety disorder: On sertraline. 8. Deep venous thrombosis prophylaxis: No anticoagulation secondary to recent subarachnoid hemorrhage and also because of possible procedure for the right hip fracture. 9. Code status: Full code for now. Admission and Anticipated Discharge Date Admission Date: September 18, 2020 Subjective Patient seen, very confused and hallucinating Review of Systems Review of Systems: ROS-No Headache, No Visual Changes, No Nausea, No Vomiting, No Fever, No Chills, No Neck Pain or Stiffness, No Chest Pain, No Palpitations, No SOB, No SANTANA, No Cough, No Sputum, No Wheezing, No Abdominal Pain, No Diarrhea, No Hematemesis, No Hemoptysis, No Unexpected Weight Loss, No Flank pain, No Melena, No Hematochezia, No Frequency, No Urgency, No Burning, No Hematuria, No Rashes, No Diaphoresis. Appetite is Normal, +R hip pain Physical Exam 2 Physical Exam: Physical Exam Gen-AAO x 1, NAD, Afebrile Head-NCAT, EOMI, PERRLA, Anicteric Sclera, No Posterior Pharyngeal Erythema Neck-Supple, No JVD, No Thyromegaly, No Masses, No LAD, No Bruits Lungs-Clear to Auscultation Bilaterally, No Rales, No Rhonchi, No Wheezing, No Crepitus Chest-No S4, +S1, +S2, No S3, No Murmurs, No Rubs, No Gallops, No Ectopy Abdomen-Soft, Bowel Sounds Present, Non Tender, Non Distended, No Hepatomegaly, No Splenomegaly, No Palpable Masses, No Rebound, No Rigidity, No Guarding Musculoskeletal-Dec Range of Motion RLE, No CVAT Extremities-No Cyanosis, No Clubbing, No Edema Nuero-Cranial Nerves II-XII grossly intact, Motor WNL, DTRs WNL, Strength WNL, Non Focal Psych-Confused Results & Data Results & Data ([facility]) Vital Signs (Past 12 Hours) Vital Signs Temp Pulse Pulse Resp BP Pulse Ox 09/19/20 09:24 94 H 09/19/20 07:46 36.3 C L 110 H 20 184/76 H 97 09/19/20 03:14 36.8 C 57 L 18 138/72 94 09/19/20 02:00 110 H Laboratory Results Allergies chlorthalidone Allergy (Severe, Verified 09/10/20 03:00) Rash alendronate sodium [From Fosamax] Adverse Reaction (Intermediate, Verified 09/10/20 03:00) Gastrointestinal Upset NSAIDS (Non-Steroidal Anti-Inflamma Adverse Reaction (Intermediate, Verified 09/10/20 03:00) Hypertension Height/Weight/Isolation Height 5 ft 6 in Weight 49 kg Chemistry 09/18/20 03:30 Sodium 130 L Potassium 4.3 Chloride 96 L Carbon Dioxide 29 Anion Gap 5.0 BUN 17 Creatinine 0.71 Glucose 132 H Urinalysis 09/18/20 03:30 Urine Color Yellow Urine Appearance Clear Urine pH 7.0 Ur Specific [place] 1.015 Urine Protein Negative Urine Glucose (UA) Negative Urine Ketones Negative Urine Blood Negative Urine Nitrite Negative Urine Bilirubin Negative (1) Fall Encounter type: initial encounter Qualified Code(s): W19.XXXA - Unspecified fall, initial encounter (2) Closed intertrochanteric fracture of right hip Encounter type: initial encounter Fracture alignment: nondisplaced Qualified Code(s): S72.144A - Nondisplaced intertrochanteric fracture of right femur, initial encounter for closed fracture
[2020-09-19] MEDS ORDERED: fentaNYL citrate 100 MCG/2 ML VIAL IV PRN (13:11)
[2020-09-19] MEDS ORDERED: ATROPINE SULFATE 0.1 MG/ML 10ML SYR IV PRN (13:11)
[2020-09-19] MEDS ORDERED: ONDANSETRON INJ 2 MG/ML 2 ML VIAL IV PRN (13:11)
[2020-09-19] MEDS ORDERED: ePHEDrine sulfate 50 MG/ML AMP IV PRN (13:11)
--- NOTE | 2020-09-19 13:23 | History & Physical Bridge Note ---
Date of Service September 19, 2020 History & Physical Bridge Note I have examined the patient, reviewed the History & Physical and in the interval since the performance of the History & Physical I have noted the following changes of clinical significance: no changes noted
--- NOTE | 2020-09-19 13:23 | Orthopedic Progress Note ---
Date of Service September 19, 2020 Assessment & Plan (1) Closed intertrochanteric fracture of right hip: Plan: The patient is a 89yo female with displaced right intertrochanteric hip fracture sustained after a fall from standing height. The patient was medically stabiliz ed on 09/19/2020. I indicated the patient for right hip cephalomedullary nail. The patient's daughter who is the POA was informed of the risks and benefits of surgery, which include but not limited to infection, bleeding, blood clots, damage to nerves, vessels, bone and soft tissue, dislocation, leg length discrepancy, malunion, nonunion, failure of the implants, need for additional surgery and . The patient's daughter chose to proceed with surgical intervention and informed consent was obtained. Discussed at length due to recent intracranial bleed, pharmacologic DVT prophylaxis contraindicated, recommendation by medical team is mechanical prophylaxis and early ambulation. Patient's daughter understands the increased risk, all questions were answered to satisfaction. Wished to proceed with surgery. Admission and Anticipated Discharge Date Admission Date: September 18, 2020 Subjective The patient was seen in preoperative holding accompanied by her daughter who is the POA. Patient is confused. Medically optimized for surgery. Pain well controlled, comfortable.. Physical Exam Physical Exam: Right lower extremity is neurovascular sensory intact, +2 dorsalis pedis pulse, compartment soft nontender, skin overlying right hip is clean dry and intact. Results & Data ([facility]) Vital Signs (Past 12 Hours) Vital Signs Temp Pulse Pulse Resp BP Pulse Ox 09/19/20 09:24 94 H 09/19/20 07:46 36.3 C L 110 H 20 184/76 H 97 09/19/20 03:14 36.8 C 57 L 18 138/72 94 09/19/20 02:00 110 H (1) Closed intertrochanteric fracture of right hip Encounter type: initial encounter Fracture alignment: nondisplaced Qualified Code(s): S72.144A - Nondisplaced intertrochanteric fracture of right femur, initial encounter for closed fracture
[2020-09-19] MEDS ORDERED: fentaNYL citrate 100 MCG/2 ML VIAL ONE (13:33)
[2020-09-19] MEDS ORDERED: PROPOFOL IV EMULSION 10 MG/ML 20 ML VIAL IV ONE (13:33)
[2020-09-19] MEDS ORDERED: LIDOCAINE 2% 2 ML VIAL/AMP(20MG/ML) INFIL ONE (13:33)
[2020-09-19] MEDS ORDERED: ceFAZolin 1000MG 1,000 MG/7.5 ML SYR IV ONE (13:41)
[2020-09-19] MEDS ORDERED: BUPIVACAINE/EPINEPHRINE 0.5% MPF 1:200,000 30 ML VIAL ONE (13:53)
[2020-09-19] MEDS ORDERED: ONDANSETRON INJ 2 MG/ML 2 ML VIAL ONE (14:56)
[2020-09-19] MEDS ORDERED: PHENYLEPHRINE 100MCG/ML 5ML SYR ONE (14:56)
[2020-09-19] MEDS ORDERED: ACETAMINOPHEN 1000 MG/100 ML IV IV ONE (14:56)
--- NOTE | 2020-09-19 15:20 | Post Operative Brief Note ---
Immediate Post Op Note v1 Date of Surgery September 19, 2020 Pre & Post Diagnosis Operation Date: 09/19/20 09:35 Pre-Op Diagnosis: Closed intertrochanteric fracture of right hip Post-Op Diagnosis: Closed intertrochanteric fracture of right hip I identified the patient and participated in the time-out.: Yes Procedure Operation Date: 09/19/20 09:35 Actual Procedures p Right Hip Cephalomedullary Nail(Right) - Jayjay Vazquez DO Surgeon Jayjay Vazquez DO Barrel Drainer None Estimated Blood Loss 60 Findings Consistent with Post-Op Diagnosis Fluids See anesthesia report Anesthesia Type General Complications none Disposition Disposition: Recovery Room Overlapping Procedure I was present for: the critical portions of procedure. I was immediately available: during the entire case. Back up surgeon: was not required during procedure.
--- NOTE | 2020-09-19 15:22 | Operative Report ---
Post Operative Report Pre & Post Diagnosis Operation Date: 09/19/20 09:35 Pre-Op Diagnosis: Closed intertrochanteric fracture of right hip Post-Op Diagnosis: Closed intertrochanteric fracture of right hip I identified the patient and participated in the time-out.: Yes Procedure Operation Date: 09/19/20 09:35 Actual Procedures p Right Hip Cephalomedullary Nail(Right) - Jayjay Vazquez DO Surgeon Jayjay Vazquez DO Garage Helper None Estimated Blood Loss 60 Findings Consistent with Post-Op Diagnosis Fluids See anesthesia report Specimens None Anesthesia Type General Complications none Disposition Disposition: Recovery Room Indications The patient is a 89yo female with displaced right intertrochanteric hip fracture sustained after a fall from standing height. The patient was medically stabilized on 09/19/2020. I indicated the patient for right hip cephalomedullary nail. The patient's daughter, JOSEFINA was informed of the risks and benefits of surgery, which include but not limited to infection, bleeding, blood clots, damage to nerves, vessels, bone and soft tissue, dislocation, leg length discrepancy, malunion, nonunion, failure of the implants, need for additional surgery and . The patient's daughter chose to proceed with surgical intervention and informed consent was obtained. Description of Procedure Following induction of adequate general anesthesia, the patient was placed on the fracture table. The left leg was placed in the well leg segura and the right leg in the traction leg segura. All bony prominences were protected. Utilizing c-arm fluoroscopy closed reduction of the fracture was performed. Once satisfied with fracture reduction the right hip was prepped and draped in the usual sterile manner. A time out was performed, patient identified, site macho verified. Appropriate IV antibiotics were given. The incision was made from the tip of the greater trochanter proximally. Subcutaneous tissue was sharply dissected to the tip of the greater trochanter, electrocautery used for hemostasis. Under fluoroscopic guidance the drill tipped guidewire was inserted at the tip of the greater trochanter and advanced into the medullary canal. Utilizing the intramedullary drill the guidewire was overdrilled with tissue protector attached. A 11 mm short Synthes TFN was inserted and impacted into position and confirmed by c-arm fluoroscopy. Next the aiming arm was attached to the insertion handle. A incision was made and carried down through subcutaneous tissues to bone. The blade guide sleeve was inserted and secured down to bone. The guide wire was passed across the fracture site to the tip of the femoral head, position was confirmed in the AP and lateral planes utilizing c-arm fluoroscopy. The guide pin was measured and the 11.0mm drill bit passed over the guide pin to open lateral cortex followed by a 6.0mm/10.0mm cannulated reamer to a depth of 95 mm. Next the helical blade was inserted and locked proximally. Traction was released and interfragmentary compression applied. Distally a stab incision was made in the skin and carried down to bone. The triple trocar assembly was inserted into the aiming guide to bone. Utilizing a 4.0mm drill, both cortices were drilled. The nail was locked distally using a single 4.9mm x 34 mm locking bolt. The aiming guide was removed at this time and final radiographs were obtained utilizing c-arm fluoroscopy to confirm overall position and fracture reduction. Incisions were irrigated with copious amounts of sterile saline solution. Subcutaneous tissue were injected utilizing .5% marcaine with epi. Deep closure was performed using #1 Vicryl followed by 2-0 Vicryl for subcutaneous tissues and maday in the skin. Sterile dressing, Xeroform gauze, 4x4s and tegaderm were applied. The patient tolerated the procedure well and was transported to the PACU in stable condition. I attest to the content of the Intraoperative Record and any orders documented therein. Any exceptions are noted below.
--- NOTE | 2020-09-19 15:30 | Fluoroscopy Report ---
INTRAOPERATIVE RADIOGRAPHS CLINICAL HISTORY: Open reduction and internal fixation of the right femur. Fluoroscopy time: 52 seconds. FINDINGS: 2 spot fluoroscopic views of the right proximal femur are correlated with right femoral rad iographs dated 09/18/2020. Intertrochanteric and intramedullary nails have been placed transfixing a c omminuted intertrochanteric fracture. Near-anatomic alignment is restored. A single cortical screw tr ansfixes the distal end of the intramedullary nail. There is persistent medial displacement of the le sser trochanter. Overlying soft tissue edema is noted. IMPRESSION: Intraoperative images from open reduction and internal fixation of the right proximal fem ur as above. Electronically signed by: Yusuf Cisneros M.D. 09/19/2020 3:29 PM
--- NOTE | 2020-09-19 15:43 | Anesthesiology Progress Note ---
Date of Service September 19, 2020 Anesthesia Post Procedure Vital Signs Vital Signs: Temp Pulse Pulse Pulse Resp BP BP 09/19/20 15:30 76 23 180/69 H 09/19/20 15:20 66 15 160/58 H 09/19/20 15:10 97.7 F 66 11 L 153/58 H 09/19/20 13:20 98.6 F 80 20 156/55 H 09/19/20 09:24 94 H 09/19/20 07:46 97.3 F L 110 H 20 184/76 H 09/19/20 03:14 98.2 F 57 L 18 138/72 09/19/20 02:00 110 H 09/19/20 00:06 97.7 F 99 H 18 181/84 H 09/18/20 19:40 98.4 F 99 H 18 156/94 H 09/18/20 16:10 84 09/18/20 15:49 97.9 F 94 H 20 159/68 H Pulse Ox 09/19/20 15:30 96 09/19/20 15:20 100 09/19/20 15:10 100 09/19/20 13:20 97 09/19/20 09:24 09/19/20 07:46 97 09/19/20 03:14 94 09/19/20 02:00 09/19/20 00:06 97 09/18/20 19:40 95 09/18/20 16:10 09/18/20 15:49 94 Pain Intensity Right Knee: Pain Intensity: 3 Transfer of Care Handoff Completed per policy Notes Mental Status: alert / awake / arousable and participated in evaluation Patient Amnestic to Procedure: Yes Nausea / Vomiting: adequately controlled Pain: adequately controlled Airway Patency, RR, SpO2: stable & adequate BP & HR: stable & adequate Hydration State: stable & adequate Anesthetic Complications: no major complications apparent and Pt Satisfied with anesthetic care
--- NOTE | 2020-09-19 15:50 | XRay Report ---
RIGHT HIP 2 VIEWS CLINICAL HISTORY: Postoperative examination. FINDINGS: AP and crosstable lateral views of the right hip are compared to study dated 09/18/2020. Int ertrochanteric and intramedullary nails have been placed transfixing an intertrochanteric fracture of the right femur. Near-anatomic alignment is restored. A single cortical screw transfixes the distal end of the intramedullary nail. There is medial displacement of the lesser trochanter. No new fractur e is seen. The visualized right hemipelvis appears intact. Moderate arthritic change and degenerative joint space narrowing is seen in the right hip. Skin clips, subcutaneous gas, and soft tissue edema around the right hip are expected postoperative findings. IMPRESSION: Expected postoperative findings status post open reduction and internal fixation of a rig ht proximal femoral fracture. See above. Electronically signed by: Yusuf Cisneros M.D. 09/19/2020 3:49 PM
[2020-09-19] MEDS ORDERED: NALOXONE HCL 0.4 MG/1 ML VIAL/CARP IV PRN (16:04)
--- NOTE | 2020-09-19 16:08 | Orthopedic Progress Note ---
Date of Service September 19, 2020 Assessment & Plan (1) Closed intertrochanteric fracture of right hip: Plan: s/p right hip TFN -ancef x 24 -DVT ppx: SCDs, TEDs, early ambulation, pharmacologic agent contraindicated secondary to recent brain bleed. -TTWB RLE -PT/OT -PO XR pending -am labs Admission and Anticipated Discharge Date Admission Date: September 18, 2020 Subjective Post Operative Progress Note Patient seen in PACU, comfortable, pain well controlled, no acute issues. Review of Systems Review of Systems: Unobtainable due to cognitive status Constitutional: as per Subjective / HPI Physical Exam Physical Exam: RLE PE limited +2 DP pulse, compartments soft compressible, dressing CDI Results & Data ([facility]) Vital Signs (Past 12 Hours) Vital Signs Temp Pulse Pulse Pulse Resp BP Pulse Ox 09/19/20 15:50 36.5 C 87 16 163/83 H 97 09/19/20 15:40 90 22 175/64 H 93 09/19/20 15:30 76 23 180/69 H 96 09/19/20 15:20 66 15 160/58 H 100 09/19/20 15:10 36.5 C 66 11 L 153/58 H 100 09/19/20 13:20 37 C 80 20 156/55 H 97 09/19/20 09:24 94 H 09/19/20 07:46 36.3 C L 110 H 20 184/76 H 97 (1) Closed intertrochanteric fracture of right hip Encounter type: initial encounter Fracture alignment: nondisplaced Qualified Code(s): S72.144A - Nondisplaced intertrochanteric fracture of right femur, initial encounter for closed fracture
[2020-09-19] MEDS: SODIUM CHLORIDE 0.9% 500 ML IV SCH ×3 (16:13→21:47)
[2020-09-19] MEDS: ACETAMINOPHEN 325 MG TAB PO PRN (17:59)
[2020-09-19] MEDS: ceFAZolin 1000MG 1,000 MG/7.5 ML SYR IV SCH (21:10)
[2020-09-20] MEDS: SODIUM CHLORIDE 0.9% 1000ML 1,000 ML IV SCH ×3 (03:49→23:37)
[2020-09-20] MEDS: ceFAZolin 1000MG 1,000 MG/7.5 ML SYR IV SCH (05:57)
[2020-09-20] MEDS: LEVOTHYROXINE SODIUM 25 MCG TABLET PO SCH (05:57)
[2020-09-20] MEDS: ACETAMINOPHEN 325 MG TAB PO PRN ×2 (06:01→14:36)
[2020-09-20 08:21] LABS: BUN Creatinine Ratio 21.4 (10-20); Calcium 7.6 mg/dl (8.5-10.1); Creatinine Clr Calc Pharmacy 54.4 ml/min; Est GFR (African American) 95.9 ml/min; Est GFR (Non-African American) 82.8 ml/min; Potassium 3.5 mmol/L (3.5-5.1)
[2020-09-20] MEDS: METOPROLOL SUCC 25MG EXT REL TAB PO SCH (08:30)
[2020-09-20] MEDS: SERTRALINE HCL 50 MG TABLET PO SCH (08:30)
[2020-09-20] MEDS: MULTIVITAMIN TAB PO SCH (08:30)
[2020-09-20] MEDS: PRAVASTATIN SOD 20 MG TAB PO SCH (08:30)
[2020-09-20] MEDS: LOSARTAN POTASSIUM 25 MG TAB PO SCH (08:30)
[2020-09-20] MEDS: amLODIPine BESYLATE 5 MG TAB PO SCH (08:30)
[2020-09-20] MEDS: ASCORBIC ACID 500 MG TAB PO SCH (08:30)
[2020-09-20 08:46] LABS: Hematocrit (blood only) 30.9 % (37-47); Hemoglobin 10.2 g/dL (12.0-16.0); Mean Corpuscular Hemoglobin 30.4 pg (25-34); Mean Corpuscular Volume 92.2 fL (80-100); Mean Platelet Volume 9.8 fL (7.4-10.4); Platelet Count 190 K/uL (130-400); RDW Coefficient of Variation 14.5 % (11.5-14.5); RDW Standard Deviation 48.5 fL (36.4-46.3); Red Blood Count 3.35 M/uL (4.2-5.4); White Blood Count 11.97 K/uL (4.8-10.8)
[2020-09-20 09:29] LABS: Eosinophils # (auto) 0.01 K/uL (0-0.5); Eosinophils % (auto) 0.1 %; Immature Granulocytes # (auto) 0.04 K/uL (0.00-0.02); Immature Granulocytes % (auto) 0.3 %; Lymphocytes # (auto) 1.64 K/uL (1.2-3.4); Lymphocytes % (auto) 13.7 %; Monocytes # (auto) 1.27 K/uL (0.11-0.59); Monocytes % (auto) 10.6 %; Neutrophils # (auto) 9.01 K/uL (1.4-6.5); Neutrophils % (auto) 75.3 %
--- NOTE | 2020-09-20 10:29 | Orthopedic Progress Note ---
Date of Service September 20, 2020 Assessment & Plan (1) Closed intertrochanteric fracture of right hip: Plan: s/p right hip TFN POD#1 -ancef x 24 -DVT ppx: SCDs, TEDs, early ambulation, pharmacologic agent contraindicated secondary to recent brain bleed. -TTWB RLE -PT/OT -PO XR Demonstrates well aligned well fixed orthopedic implant without new fracture or dislocation, anatomic alignment of the fracture site -am labs - as above, hgb 10.2 Admission and Anticipated Discharge Date Admission Date: September 18, 2020 Subjective Post Operative Progress Note Patient seen sitting up in bed, comfortable, confused, denies complaints, pain well controlled, no acute issues. Review of Systems Constitutional: as per Subjective / HPI Physical Exam Physical Exam: RLE PE limited +2 DP pulse, compartments soft compressible, dressing CDI, wiggles toes on command. Results & Data ([facility]) Vital Signs (Past 12 Hours) Vital Signs Temp Pulse Pulse Resp BP BP Pulse Ox 09/20/20 07:12 108 H 09/20/20 07:00 36.9 C 100 H 16 147/63 H 96 09/20/20 04:52 37.2 C 108 H 18 165/78 H 97 09/20/20 04:00 37.2 C 111 H 20 96 09/20/20 03:43 37.1 C 99 H 18 171/65 H 96 09/19/20 23:00 88 09/19/20 22:31 36.5 C 85 20 142/74 H 96 Laboratory Results 09/20/20 09/20/20 Range/Units 07:28 07:28 WBC 11.97 H (4.8-10.8) K/uL RBC 3.35 L (4.2-5.4) M/uL Hgb 10.2 L (12.0-16.0) g/dL Hct 30.9 L (37-47) % MCV 92.2 (80-100) fL MCH 30.4 (25-34) pg MCHC 33.0 (32-36) g/dL RDW Std Deviation 48.5 H (36.4-46.3) fL RDW Coeff of Dennis 14.5 (11.5-14.5) % Plt Count 190 (130-400) K/uL MPV 9.8 (7.4-10.4) fL Immature Gran % (Auto) 0.3 % Neut % (Auto) 75.3 % Lymph % (Auto) 13.7 % Divide % (Auto) 10.6 % Eos % (Auto) 0.1 % Baso % (Auto) 0.0 % Neut # (Auto) 9.01 H (1.4-6.5) K/uL Lymph # (Auto) 1.64 (1.2-3.4) K/uL Divide # (Auto) 1.27 H (0.11-0.59) K/uL Eos # (Auto) 0.01 (0-0.5) K/uL Baso # (Auto) 0.00 (0-0.2) K/uL Immature Gran # (Auto) 0.04 H (0.00-0.02) K/uL Sodium 137 (136-145) mmol/L Potassium 3.5 (3.5-5.1) mmol/L Chloride 107 (98-107) mmol/L Carbon Dioxide 24 (21-32) mmol/L Anion Gap 6.0 (3-11) BUN 12 (7-18) mg/dl Creatinine 0.57 L (0.6-1.2) mg/dl Est Cr Clr Drug Dosing 54.4 ml/min Est GFR ( Amer) 95.9 ml/min Est GFR (Non-Af Amer) 82.8 ml/min BUN/Creatinine Ratio 21.4 H (10-20) Glucose 95 (70-99) mg/dl Calcium 7.6 L (8.5-10.1) mg/dl (1) Closed intertrochanteric fracture of right hip Encounter type: initial encounter Fracture alignment: nondisplaced Qualified Code(s): S72.144A - Nondisplaced intertrochanteric fracture of right femur, initial encounter for closed fracture
--- NOTE | 2020-09-20 10:54 | Hospitalist Progress Note ---
Date of Service September 20, 2020 Assessment & Plan (1) Delirium: Plan: Likely related to recent surgery. She had a recent hospitalization for fall SAH, which appears to be resolving with no worsening of hemorrhage on CT head today. Cont supportive care and reorientation. Cont to stay ahead of pain wtih Tylenol. (2) Closed intertrochanteric fracture of right hip: Plan: POD# 1 s/p R hip surgery NWB on the RLE cont Mendoza for now Cont pain control No chemoprophy in light of recent SAH. (3) Fall: Plan: wtih R hip fracture, s/p surgery above. Will look for rehab as a transition to home at discharge. (4) Subarachnoid hemorrhage: Plan: known recent SAH, admission CT discussed with neurosurgeon on admission. Improved scan. Cont to avoid blood thinners. (5) HTN (hypertension): Plan: at goal, cont amlodipine and losartan per home regimen. (6) Hypothyroidism: Plan: cont synthroid per home regimen. (7) DVT prophylaxis: Plan: SCDs, chemoprophy contraindicated DNR Dispo-uncertain at this time. Plan for rehab/SNF as a transition to home. Kayley Gregorio DO [facility] Admission and Anticipated Discharge Date Admission Date: September 18, 2020 Subjective s/p R hip surgery confused cannot obtain ROS appears comfortable came back later to discuss plan with daughter at bedside CT head repeat shows trace SAH, improved/stable from CT head two days ago. Pt has been confused since prior to the operation. Review of Systems Review of Systems: cannot obtain as patient is confused and confabulating. Physical Exam Physical Exam: CONSTITUTIONAL: WNWD, vitals as above, NAD, confused. EYES: pupils are round and qual bilaterally, normal conjunctivae, no scleral icterus ENT: external ear and nose normal, MMM RESPIRATORY: clear to auscultation bilaterally, no crackles, rales or wheezes, normal respiratory effort CARDIOVASCULAR: regular rate and rhythm, S1 and 2 heard without murmurs, gallops or rubs, no JVD, no peripheral edema GASTROINTESTINAL: soft, nontender, ND, no guarding MUSCULOSKELETAL: generalized weakness but moves all extremities symmetrically. SKIN: warm and dry, s/p right surgery with incision covered with dry dressing and some ecchymosis around the site. NEUROLOGIC: Cannot obtain patellar DTRs as patient not cooperative with exam. Cannot follow instructions. CN 2-12 grossly intact, no sensory deficit, normal cognition, normal speech, no tremor PSYCHIATRIC: alert and delirious. Results & Data Results & Data ([facility]) Vital Signs (Past 12 Hours) Vital Signs Temp Pulse Pulse Resp BP BP Pulse Ox 09/20/20 07:12 108 H 09/20/20 07:00 36.9 C 100 H 16 147/63 H 96 09/20/20 04:52 37.2 C 108 H 18 165/78 H 97 09/20/20 04:00 37.2 C 111 H 20 96 09/20/20 03:43 37.1 C 99 H 18 171/65 H 96 09/19/20 23:00 88 Laboratory Results Short CBC 09/20/20 Range/Units 07:28 WBC 11.97 H (4.8-10.8) K/uL Hgb 10.2 L (12.0-16.0) g/dL Hct 30.9 L (37-47) % Plt Count 190 (130-400) K/uL BMP 09/20/20 07:28 Sodium 137 Potassium 3.5 Chloride 107 Carbon Dioxide 24 BUN 12 Creatinine 0.57 L Glucose 95 Calcium 7.6 L Cardiac Enzymes 09/20/20 Range/Units 07:28 Troponin I 0.018 (0-0.045) ng/ml Medications Administered Current Inpatient Medications Acetaminophen (Acetaminophen 325 Mg Tab) 650 mg PO Q4H PRN PRN Reason: Pain or Fever Stop: 10/18/20 10:10 Last Admin: 09/20/20 14:36 Dose: 650 mg Documented by: Amlodipine Besylate (Amlodipine Besylate 5 Mg Tab) 10 mg PO DAILY ABDULLAHI Stop: 10/18/20 10:10 Last Admin: 09/20/20 08:30 Dose: 10 mg Documented by: Ascorbic Acid (Ascorbic Acid 500 Mg Tab) 500 mg PO DAILY ABDULLAHI Stop: 10/18/20 10:10 Last Admin: 09/20/20 08:30 Dose: 500 mg Documented by: Sodium Chloride (Nss 1000ml) 1,000 mls @ 80 mls/hr IV .[id number] ABDULLAHI Stop: 10/18/20 10:10 Last Admin: 09/20/20 12:39 Dose: 80 mls/hr Documented by: Levothyroxine Sodium (Levothyroxine Sodium 25 Mcg Tablet) 25 mcg PO DAILYBB [facility] Stop: 10/18/20 10:10 Last Admin: 09/20/20 05:57 Dose: 25 mcg Documented by: Losartan Potassium (Losartan Potassium 25 Mg Tab) 25 mg PO DAILY [facility] Stop: 10/18/20 10:10 Last Admin: 09/20/20 08:30 Dose: 25 mg Documented by: Metoprolol Succinate (Metoprolol Succ 25mg Ext Rel Tab) 25 mg PO DAILY [facility] Stop: 10/18/20 10:10 Last Admin: 09/20/20 08:30 Dose: 25 mg Documented by: Morphine Sulfate (Morphine Sulfate 2 Mg/Ml Carp) 2 mg IV Q3H PRN PRN Reason: Pain Stop: 10/02/20 23:45 Last Admin: 09/20/20 18:33 Dose: 2 mg Documented by: Multivitamins (Multivitamin Tab) 1 tab PO DAILY [facility] Stop: 10/18/20 10:10 Last Admin: 09/20/20 08:30 Dose: 1 tab Documented by: Naloxone HCl (Naloxone Hcl 0.4 Mg/1 Ml Vial/Carp) 0.1 mg IV UD PRN PRN Reason: Opioid Overdose Stop: 10/19/20 16:03 Nitroglycerin (Nitroglycerin Sl 0.4 Mg/Tab Tab) 0.4 mg SL UD PRN PRN Reason: Chest Pain Stop: 10/18/20 10:10 Ondansetron HCl (Ondansetron Inj 2 Mg/Ml 2 Ml Vial) 4 mg IV Q6H PRN PRN Reason: Nausea Stop: 10/18/20 10:10 Polyethylene Glycol (Polyethylene (Miralax) 17 Gm Pack) 17 gm PO DAILY PRN PRN Reason: Constipation Stop: 10/18/20 10:10 Pravastatin Sodium (Pravastatin Sod 20 Mg Tab) 20 mg PO DAILY [facility] Stop: 10/18/20 10:10 Last Admin: 09/20/20 08:30 Dose: 20 mg Documented by: Sertraline HCl (Sertraline Hcl 50 Mg Tablet) 25 mg PO DAILY [facility] Stop: 10/20/20 08:59 Last Admin: 09/20/20 08:30 Dose: 25 mg Documented by: (1) Fall Encounter type: initial encounter Qualified Code(s): W19.XXXA - Unspecified fall, initial encounter (2) Closed intertrochanteric fracture of right hip Encounter type: initial encounter Fracture alignment: nondisplaced Qualified Code(s): S72.144A - Nondisplaced intertrochanteric fracture of right femur, initial encounter for closed fracture
--- NOTE | 2020-09-20 12:16 | CT Scan Report ---
CT head/brain wo con CLINICAL HISTORY: Subarachnoid hemorrhage. Confusion. COMPARISON STUDY: 09/18/2020 TECHNIQUE: Axial CT of the brain is performed from the vertex to the skull base. IV contrast was not administered for this examination. A dose lowering technique was utilized adhering to the principles of ALARA. CT DOSE: 788.63 mGycm FINDINGS: There is trace residual subarachnoid hemorrhage within the left convexity. There is no evidence of in traparenchymal hemorrhage. No intracranial masses are visualized. There is no midline shift. There ar e persistent bilateral extra-axial low-density fluid collections measuring 7 mm in thickness. These a re consistent with subdural hygromas versus subacute subdural hematomas. There are patchy white matter hypodensities likely on a small vessel basis. 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 There is no evidence of acute sinusitis IMPRESSION: 1. Trace residual subarachnoid hemorrhage within the left convexity 2. No evidence of intraparenchymal hemorrhage 3. Persistent bilateral extra-axial low-density fluid collections measuring 7 mm in thickness. ACT 112: Negative or not required by law. Electronically signed by: Jared Randhawa M.D. 09/20/2020 12:15 PM
--- NOTE | 2020-09-20 16:19 | Electrocardiogram Report ---
Test Reason : Blood Pressure : / mmHG Vent. Rate : 089 BPM Atrial Rate : 089 BPM P-R Int : 202 ms QRS Dur : 086 ms QT Int : 380 ms P-R-T Axes : 087 053 114 degrees QTc Int : 462 ms Normal sinus rhythm Left ventricular hypertrophy with repolarization abnormality Nonspecific T wave abnormality Abnormal ECG When compared with ECG of 18-SEP-2020 03:30, ST no longer elevated in Inferior leads Confirmed by Reagan Zapata ([id number]) on 09/20/2020 4:19:01 PM Referred By: Catrina Cabrera Confirmed By:Reagan Zapata
--- NOTE | 2020-09-20 16:20 | Electrocardiogram Report ---
Test Reason : Blood Pressure : / mmHG Vent. Rate : 093 BPM Atrial Rate : 093 BPM P-R Int : 194 ms QRS Dur : 082 ms QT Int : 364 ms P-R-T Axes : 086 055 115 degrees QTc Int : 452 ms Sinus rhythm with Premature atrial complexes Minimal voltage criteria for LVH, may be normal variant T wave abnormality, consider lateral ischemia Abnormal ECG When compared with ECG of 20-SEP-2020 00:28, (unconfirmed) Premature atrial complexes are now Present Confirmed by Reagan Zapata ([id number]) on 09/20/2020 4:20:26 PM Referred By: Catrina Cabrera Confirmed By:Reagan Zapata
--- NOTE | 2020-09-20 16:22 | Electrocardiogram Report ---
Test Reason : Blood Pressure : / mmHG Vent. Rate : 111 BPM Atrial Rate : 111 BPM P-R Int : 182 ms QRS Dur : 082 ms QT Int : 338 ms P-R-T Axes : 090 058 118 degrees QTc Int : 459 ms Sinus tachycardia Minimal voltage criteria for LVH, may be normal variant T wave abnormality, consider inferolateral ischemia Abnormal ECG When compared with ECG of 20-SEP-2020 03:06, (unconfirmed) Premature atrial complexes are no longer Present Inverted T waves have replaced nonspecific T wave abnormality in Inferior leads Confirmed by Reagan Zapata ([id number]) on 09/20/2020 4:21:36 PM Referred By: Catrina Cabrera Confirmed By:Reagan Zapata
[2020-09-20] MEDS: MoRPHine SULFATE 2 MG/ML CARP IV PRN (18:33)
[2020-09-20] MEDS: ACETAMINOPHEN 325 MG TAB PO SCH (23:36)
[2020-09-21] MEDS: ACETAMINOPHEN 325 MG TAB PO SCH ×3 (07:55→23:09)
[2020-09-21] MEDS: LEVOTHYROXINE SODIUM 25 MCG TABLET PO SCH (07:55)
[2020-09-21 08:23] LABS: Basophils # (auto) 0.01 K/uL (0-0.2); Basophils % (auto) 0.1 %; Eosinophils # (auto) 0.01 K/uL (0-0.5); Eosinophils % (auto) 0.1 %; Hemoglobin 9.5 g/dL (12.0-16.0); Immature Granulocytes # (auto) 0.11 K/uL (0.00-0.02); Immature Granulocytes % (auto) 0.9 %; Lymphocytes # (auto) 2.52 K/uL (1.2-3.4); Lymphocytes % (auto) 19.6 %; Mean Corpuscular Hemoglobin 30.5 pg (25-34); Mean Corpuscular Hgb Conc 32.8 g/dL (32-36); Mean Corpuscular Volume 93.2 fL (80-100); Mean Platelet Volume 9.6 fL (7.4-10.4); Monocytes # (auto) 0.92 K/uL (0.11-0.59); Monocytes % (auto) 7.2 %; Neutrophils # (auto) 9.29 K/uL (1.4-6.5); Neutrophils % (auto) 72.1 %; Platelet Count 215 K/uL (130-400); RDW Coefficient of Variation 14.7 % (11.5-14.5); RDW Standard Deviation 50.1 fL (36.4-46.3); Red Blood Count 3.11 M/uL (4.2-5.4); White Blood Count 12.86 K/uL (4.8-10.8)
[2020-09-21] MEDS: MoRPHine SULFATE 2 MG/ML CARP IV PRN (08:37)
[2020-09-21] MEDS: PRAVASTATIN SOD 20 MG TAB PO SCH (08:38)
[2020-09-21] MEDS: amLODIPine BESYLATE 5 MG TAB PO SCH (08:38)
[2020-09-21] MEDS: MULTIVITAMIN TAB PO SCH (08:38)
[2020-09-21] MEDS: LOSARTAN POTASSIUM 25 MG TAB PO SCH (08:38)
[2020-09-21] MEDS: SERTRALINE HCL 50 MG TABLET PO SCH (08:39)
[2020-09-21] MEDS: METOPROLOL SUCC 25MG EXT REL TAB PO SCH (08:39)
[2020-09-21 08:40] LABS: Albumin Level 2.5 gm/dl (3.4-5.0); Calcium 7.7 mg/dl (8.5-10.1); Creatinine Clr Calc Pharmacy 71.2 ml/min; Est GFR (African American) 103.7 ml/min; Est GFR (Non-African American) 89.5 ml/min; Magnesium 2.2 mg/dl (1.8-2.4); Potassium 3.3 mmol/L (3.5-5.1)
[2020-09-21] MEDS: ASCORBIC ACID 500 MG TAB PO SCH (08:40)
[2020-09-21 08:50] LABS: Phosphorus 1.1 mg/dl (2.5-4.9)
[2020-09-21] MEDS ORDERED: POTASSIUM PHOS 3 MMOL/1 ML INFUSION IV STA (08:54)
[2020-09-21] MEDS ORDERED: CALCIUM GLUCONATE 10% 2,000 MG in SODIUM CHLORIDE 0.9% 50 ML IV ONE (09:15)
[2020-09-21] MEDS ORDERED: POTASSIUM PHOSPHATE 30 MMOL in SODIUM CHLORIDE 0.9% 500 ML IV ONE (09:30)
[2020-09-21 09:49] LABS: Appearance Urine Clear (Clear); Bacteria Urine Automated Negative (Negative); Blood Urine 2+ (Negative); Color Urine Dark Yellow; Epithelial Cell Urine Auto >30 /lpf (0-5); Glucose Urine UA Negative (Negative); Ketones Urine 4+ (Negative); Leukocyte Esterase Urine 2+ (Negative); Nitrite Urine Negative (Negative); Protein Urine Trace (Negative); Specific Gravity Urine 1.017 (1.000-1.030); Urobilinogen Urine Negative (Negative); WBC Urine Automated >30 /hpf (0-5); pH Urine 5.5 (4.5-7.5)
[2020-09-21 09:51] LABS: Bilirubin Urine 1+ (Negative)
[2020-09-21 10:00] LABS: Mucus Urine Present (None Prsent)
[2020-09-21] MEDS: SODIUM CHLORIDE 0.9% 1000ML 1,000 ML IV SCH (12:22)
--- NOTE | 2020-09-21 12:40 | Orthopedic Progress Note ---
Date of Service September 21, 2020 Assessment & Plan (1) Closed intertrochanteric fracture of right hip: Plan: s/p right hip TFN POD#2 -ancef x 24 -DVT ppx: SCDs, TEDs, early ambulation, pharmacologic agent contraindicated secondary to recent brain bleed. -TTWB RLE -PT/OT when medically stable -PO XR Demonstrates well aligned well fixed orthopedic implant without new fracture or dislocation, anatomic alignment of the fracture site -am labs - as above, hgb 9.5, stable Admission and Anticipated Discharge Date Admission Date: September 18, 2020 Subjective Post Operative Progress Note Patient seen resting in bed, daughter at bedside, no acute issues overnight, patient confused. Review of Systems Review of Systems: Unobtainable due to cognitive status Physical Exam Physical Exam: RLE PE limited +2 DP pulse, compartments soft compressible, dressing CDI, wiggles toes on command. Results & Data ([facility]) Vital Signs (Past 12 Hours) Vital Signs Temp Pulse Pulse Resp BP Pulse Ox 09/21/20 07:56 20 154/64 H 09/21/20 07:14 107 H 09/21/20 03:00 37 C 92 H 18 148/51 H 96 Laboratory Results 09/21/20 09/21/20 09/21/20 Range/Units 09:25 08:05 08:05 WBC 12.86 H (4.8-10.8) K/uL RBC 3.11 L (4.2-5.4) M/uL Hgb 9.5 L (12.0-16.0) g/dL Hct 29.0 L (37-47) % MCV 93.2 (80-100) fL MCH 30.5 (25-34) pg MCHC 32.8 (32-36) g/dL RDW Std Deviation 50.1 H (36.4-46.3) fL RDW Coeff of Dennis 14.7 H (11.5-14.5) % Plt Count 215 (130-400) K/uL MPV 9.6 (7.4-10.4) fL Immature Gran % (Auto) 0.9 % Neut % (Auto) 72.1 % Lymph % (Auto) 19.6 % [place] % (Auto) 7.2 % Eos % (Auto) 0.1 % Baso % (Auto) 0.1 % Neut # (Auto) 9.29 H (1.4-6.5) K/uL Lymph # (Auto) 2.52 (1.2-3.4) K/uL [place] # (Auto) 0.92 H (0.11-0.59) K/uL Eos # (Auto) 0.01 (0-0.5) K/uL Baso # (Auto) 0.01 (0-0.2) K/uL Immature Gran # (Auto) 0.11 H (0.00-0.02) K/uL Sodium 140 (136-145) mmol/L Potassium 3.3 L (3.5-5.1) mmol/L Chloride 110 H (98-107) mmol/L Carbon Dioxide 21 (21-32) mmol/L Anion Gap 9.0 (3-11) BUN 12 (7-18) mg/dl Creatinine 0.45 L (0.6-1.2) mg/dl Est Cr Clr Drug Dosing 71.2 ml/min Est GFR ( Amer) 103.7 ml/min Est GFR (Non-Af Amer) 89.5 ml/min BUN/Creatinine Ratio 26.0 H (10-20) Glucose 91 (70-99) mg/dl Calcium 7.7 L (8.5-10.1) mg/dl Phosphorus 1.1 L* (2.5-4.9) mg/dl Magnesium 2.2 (1.8-2.4) mg/dl Albumin 2.5 L (3.4-5.0) gm/dl Urine Color Dark Yellow Urine Appearance Clear (Clear) Urine pH 5.5 (4.5-7.5) Ur Specific [place] 1.017 (1.000-1.030) Urine Protein Trace H (Negative) Urine Glucose (UA) Negative (Negative) Urine Ketones 4+ H (Negative) Urine Blood 2+ H (Negative) Urine Nitrite Negative (Negative) Urine Bilirubin 1+ H (Negative) Urine Urobilinogen Negative (Negative) Ur Leukocyte Esterase 2+ H (Negative) Urine WBC (Auto) >30 H (0-5) /hpf Urine RBC (Auto) 5-10 H (0-4) /hpf U Hyaline Cast (Auto) 1-5 (0-5) /lpf U Epithel Cells (Auto) >30 H (0-5) /lpf Urine Bacteria (Auto) Negative (Negative) Ur Renal Epithelial Cell Not Reportable Urine Mucus Present A (None Prsent) (1) Closed intertrochanteric fracture of right hip Encounter type: initial encounter Fracture alignment: nondisplaced Qualified Code(s): S72.144A - Nondisplaced intertrochanteric fracture of right femur, initial encounter for closed fracture
--- NOTE | 2020-09-21 14:33 | Hospitalist Progress Note ---
Date of Service September 21, 2020 Assessment & Plan (1) Delirium: Plan: Likely related to recent surgery--resolved.. She had a recent hospitalization for fall SAH, which appears to be resolving with no worsening of hemorrhage on CT head today. Cont supportive care and reorientation. Cont to stay ahead of pain wtih Tylenol. (2) Closed intertrochanteric fracture of right hip: Plan: POD# 2 s/p R hip surgery NWB on the RLE cont Chaidez for now Cont pain control No chemoprophylaxis in light of recent SAH. (3) Fall: Plan: wtih R hip fracture, s/p surgery above. Will look for rehab as a transition to home at discharge. (4) Subarachnoid hemorrhage: Plan: known recent SAH, admission CT discussed with neurosurgeon on admission. Improved scan. Cont to avoid blood thinners. (5) HTN (hypertension): Plan: at goal, cont amlodipine and losartan per home regimen. (6) Hypothyroidism: Plan: cont synthroid per home regimen. (7) DVT prophylaxis: Plan: SCDs, chemoprophy contraindicated DNR Dispo-uncertain at this time. Plan for rehab/SNF as a transition to home. [facility] and Anticipated Discharge Date Admission Date: September 18, 2020 Subjective s/p R hip surgery confusion has resolved. denies any pain, SOB, chest pain Daughter at bedside and helping her with having some ice cream She is oriented. Worked with therapy today Discussed chaidez catheter and decided to take this out and consider [place] Repeat UA with positive LE-covered empirically with Rocephin pending urine cultures. Recently had an E coli UTI. Review of Systems Review of Systems: All systems were reviewed and negative except as indicated in HPI above. Physical Exam Physical Exam: CONSTITUTIONAL: WNWD, vitals as above, NAD EYES: normal conjunctivae, no scleral icterus ENT: external ear and nose normal, MMM RESPIRATORY: clear to auscultation bilaterally, no crackles, rales or wheezes, normal respiratory effort CARDIOVASCULAR: regular rate and rhythm, S1 and 2 heard without murmurs, gallops or rubs, no JVD, no peripheral edema GASTROINTESTINAL: soft, nontender, ND, no guarding MUSCULOSKELETAL: generalized weakness but moves all extremities symmetrically. SKIN: warm and dry, s/p right surgery with incision covered with dry dressing and some ecchymosis around the site. NEUROLOGIC: CN 2-12 grossly intact, no sensory deficit, normal cognition, normal speech, no tremor PSYCHIATRIC: alert and appropriate. Results & Data Results & Data ([facility]) Vital Signs (Past 12 Hours) Vital Signs Temp Pulse Pulse Resp BP Pulse Ox 09/21/20 07:56 20 154/64 H 09/21/20 07:14 107 H 09/21/20 03:00 37 C 92 H 18 148/51 H 96 Laboratory Results Short CBC 09/21/20 Range/Units 08:05 WBC 12.86 H (4.8-10.8) K/uL Hgb 9.5 L (12.0-16.0) g/dL Hct 29.0 L (37-47) % Plt Count 215 (130-400) K/uL BMP 09/21/20 08:05 Sodium 140 Potassium 3.3 L Chloride 110 H Carbon Dioxide 21 BUN 12 Creatinine 0.45 L Glucose 91 Calcium 7.7 L Liver Function 09/21/20 Range/Units 08:05 Albumin 2.5 L (3.4-5.0) gm/dl Urine 09/21/20 Range/Units 09:25 Urine Color Dark Yellow Urine Appearance Clear (Clear) Urine pH 5.5 (4.5-7.5) Ur Specific [place] 1.017 (1.000-1.030) Urine Protein Trace H (Negative) Urine Glucose (UA) Negative (Negative) Medications Administered Current Inpatient Medications Acetaminophen (Acetaminophen 325 Mg Tab) 650 mg PO Q8H ABDULLAHI Stop: 10/20/20 23:29 Last Admin: 09/21/20 07:55 Dose: 650 mg Documented by: Amlodipine Besylate (Amlodipine Besylate 5 Mg Tab) 10 mg PO DAILY ABDULLAHI Stop: 10/18/20 10:10 Last Admin: 09/21/20 08:38 Dose: 10 mg Documented by: Ascorbic Acid (Ascorbic Acid 500 Mg Tab) 500 mg PO DAILY ABDULLAHI Stop: 10/18/20 10:10 Last Admin: 09/21/20 08:40 Dose: 500 mg Documented by: Sodium Chloride (Nss 1000ml) 1,000 mls @ 80 mls/hr IV .[id number] ABDULLAHI Stop: 10/18/20 10:10 Last Admin: 09/21/20 12:22 Dose: 80 mls/hr Documented by: Ceftriaxone Sodium 1,000 mg/ (Dextrose) 50 mls @ 100 mls/hr IV Q24H [facility]; Protocol Stop: 09/26/20 14:44 Levothyroxine Sodium (Levothyroxine Sodium 25 Mcg Tablet) 25 mcg PO DAILYBB [facility] Stop: 10/18/20 10:10 Last Admin: 09/21/20 07:55 Dose: 25 mcg Documented by: Losartan Potassium (Losartan Potassium 25 Mg Tab) 25 mg PO DAILY [facility] Stop: 10/18/20 10:10 Last Admin: 09/21/20 08:38 Dose: 25 mg Documented by: Metoprolol Succinate (Metoprolol Succ 25mg Ext Rel Tab) 25 mg PO DAILY [facility] Stop: 10/18/20 10:10 Last Admin: 09/21/20 08:39 Dose: 25 mg Documented by: Morphine Sulfate (Morphine Sulfate 2 Mg/Ml Carp) 2 mg IV Q3H PRN PRN Reason: Pain Stop: 10/02/20 23:45 Last Admin: 09/21/20 08:37 Dose: 2 mg Documented by: Multivitamins (Multivitamin Tab) 1 tab PO DAILY [facility] Stop: 10/18/20 10:10 Last Admin: 09/21/20 08:38 Dose: 1 tab Documented by: Naloxone HCl (Naloxone Hcl 0.4 Mg/1 Ml Vial/Carp) 0.1 mg IV UD PRN PRN Reason: Opioid Overdose Stop: 10/19/20 16:03 Nitroglycerin (Nitroglycerin Sl 0.4 Mg/Tab Tab) 0.4 mg SL UD PRN PRN Reason: Chest Pain Stop: 10/18/20 10:10 Ondansetron HCl (Ondansetron Inj 2 Mg/Ml 2 Ml Vial) 4 mg IV Q6H PRN PRN Reason: Nausea Stop: 10/18/20 10:10 Polyethylene Glycol (Polyethylene (Miralax) 17 Gm Pack) 17 gm PO DAILY PRN PRN Reason: Constipation Stop: 10/18/20 10:10 Pravastatin Sodium (Pravastatin Sod 20 Mg Tab) 20 mg PO DAILY [facility] Stop: 10/18/20 10:10 Last Admin: 09/21/20 08:38 Dose: 20 mg Documented by: Sertraline HCl (Sertraline Hcl 50 Mg Tablet) 25 mg PO DAILY [facility] Stop: 10/20/20 08:59 Last Admin: 09/21/20 08:39 Dose: 25 mg Documented by: (1) Fall Encounter type: initial encounter Qualified Code(s): W19.XXXA - Unspecified fall, initial encounter (2) Closed intertrochanteric fracture of right hip Encounter type: initial encounter Fracture alignment: nondisplaced Qualified Code(s): S72.144A - Nondisplaced intertrochanteric fracture of right femur, initial encounter for closed fracture
[2020-09-21] MEDS: cefTRIAXone SODIUM 1,000 MG in DEXTROSE 5% 50 ML IV SCH (15:18)
[2020-09-21 16:55] LABS: BUN Creatinine Ratio 24.6 (10-20); Calcium 7.8 mg/dl (8.5-10.1); Creatinine Clr Calc Pharmacy 65.4 ml/min; Est GFR (African American) 100.8 ml/min; Magnesium 2.3 mg/dl (1.8-2.4); Potassium 3.5 mmol/L (3.5-5.1)
[2020-09-22] MEDS: SODIUM CHLORIDE 0.9% 1000ML 1,000 ML IV SCH (00:55)
[2020-09-22] MEDS: LEVOTHYROXINE SODIUM 25 MCG TABLET PO SCH (06:09)
[2020-09-22 06:28] LABS: Basophils # (auto) 0.01 K/uL (0-0.2); Basophils % (auto) 0.1 %; Eosinophils # (auto) 0.12 K/uL (0-0.5); Eosinophils % (auto) 1.1 %; Hematocrit (blood only) 25.9 % (37-47); Hemoglobin 8.6 g/dL (12.0-16.0); Immature Granulocytes % (auto) 0.9 %; Lymphocytes # (auto) 2.45 K/uL (1.2-3.4); Mean Corpuscular Hemoglobin 30.7 pg (25-34); Mean Corpuscular Hgb Conc 33.2 g/dL (32-36); Mean Corpuscular Volume 92.5 fL (80-100); Mean Platelet Volume 9.4 fL (7.4-10.4); Monocytes # (auto) 0.89 K/uL (0.11-0.59); Monocytes % (auto) 8.4 %; Neutrophils # (auto) 7.06 K/uL (1.4-6.5); Neutrophils % (auto) 66.5 %; Platelet Count 249 K/uL (130-400); RDW Coefficient of Variation 14.8 % (11.5-14.5); RDW Standard Deviation 49.7 fL (36.4-46.3); White Blood Count 10.63 K/uL (4.8-10.8)
[2020-09-22] MEDS: ACETAMINOPHEN 325 MG TAB PO SCH ×3 (08:06→23:14)
[2020-09-22] MEDS: LOSARTAN POTASSIUM 25 MG TAB PO SCH (08:06)
[2020-09-22] MEDS: amLODIPine BESYLATE 5 MG TAB PO SCH (08:06)
[2020-09-22] MEDS: ASCORBIC ACID 500 MG TAB PO SCH (08:06)
[2020-09-22] MEDS: PRAVASTATIN SOD 20 MG TAB PO SCH (08:07)
[2020-09-22] MEDS: METOPROLOL SUCC 25MG EXT REL TAB PO SCH (08:07)
[2020-09-22] MEDS: MULTIVITAMIN TAB PO SCH (08:07)
[2020-09-22] MEDS: SERTRALINE HCL 50 MG TABLET PO SCH (08:07)
[2020-09-22] MEDS: FUROSEMIDE 20 MG TAB PO SCH (13:18)
--- NOTE | 2020-09-22 14:24 | Hospitalist Progress Note ---
Date of Service September 22, 2020 Assessment & Plan (1) Delirium: Plan: Likely related to recent surgery--resolved. She had a recent hospitalization for fall SAH, which appears to be resolving with no worsening of hemorrhage on CT head. Cont supportive care. Tylenol PRN (2) Closed intertrochanteric fracture of right hip: Plan: POD# 3 s/p R hip surgery Toe touch weight bearing on the RLE Cont pain control No chemoprophylaxis in light of recent SAH. (3) Postoperative anemia: Plan: There is a fair amount of ecchymosis around the right incision site. Would recommend repeat H/H in one week. (4) Fall: Plan: wtih R hip fracture, s/p surgery above. Will look for rehab as a transition to home at discharge. (5) Subarachnoid hemorrhage: Plan: known recent SAH, admission CT discussed with neurosurgeon on admission. Improved scan. Cont to avoid blood thinners. (6) HTN (hypertension): Plan: at goal, cont amlodipine and losartan per home regimen. (7) Hypothyroidism: Plan: cont synthroid per home regimen. (8) DVT prophylaxis: Plan: SCDs, chemoprophy contraindicated DNR Dispo- Plan for rehab/SNF as a transition to home. Kayley Gregorio DO [facility] Admission and Anticipated Discharge Date Admission Date: September 18, 2020 Subjective s/p R hip surgery denies SOB, chest pain slight pain in right hip area with ecchymosis surrounding incision site. Denies any issues today Review of Systems Review of Systems: All systems were reviewed and negative except as indicated in HPI above. Physical Exam Physical Exam: CONSTITUTIONAL: WNWD, vitals as above, NAD EYES: normal conjunctivae, no scleral icterus ENT: external ear and nose normal, MMM RESPIRATORY: clear to auscultation bilaterally, no crackles, rales or wheezes, normal respiratory effort CARDIOVASCULAR: regular rate and rhythm, S1 and 2 heard without murmurs, gallops or rubs, no JVD, no peripheral edema GASTROINTESTINAL: soft, nontender, ND, no guarding MUSCULOSKELETAL: generalized weakness but moves all extremities symmetrically. SKIN: warm and dry, s/p right surgery with incision covered with dry dressing and some ecchymosis around the site. NEUROLOGIC: CN 2-12 grossly intact, no sensory deficit, normal cognition, normal speech, no tremor PSYCHIATRIC: alert and appropriate. Results & Data Results & Data ([facility]) Vital Signs (Past 12 Hours) Vital Signs Temp Pulse Pulse Resp BP Pulse Ox 09/22/20 11:02 36.5 C 77 18 147/64 H 97 09/22/20 10:34 91 H 09/22/20 08:01 36.7 C 88 16 172/65 H 95 09/22/20 04:00 36.4 C L 88 18 152/63 H 94 Laboratory Results Short CBC 09/22/20 Range/Units 05:43 WBC 10.63 (4.8-10.8) K/uL Hgb 8.6 L (12.0-16.0) g/dL Hct 25.9 L (37-47) % Plt Count 249 (130-400) K/uL BMP 09/21/20 16:22 Sodium 140 Potassium 3.5 Chloride 111 H Carbon Dioxide 25 BUN 12 Creatinine 0.49 L Glucose 142 H Calcium 7.8 L Medications Administered Current Inpatient Medications Acetaminophen (Acetaminophen 325 Mg Tab) 650 mg PO Q8H ABDULLAHI Stop: 10/20/20 23:29 Last Admin: 09/22/20 08:06 Dose: 650 mg Documented by: Amlodipine Besylate (Amlodipine Besylate 5 Mg Tab) 10 mg PO DAILY ABDULLAHI Stop: 10/18/20 10:10 Last Admin: 09/22/20 08:06 Dose: 10 mg Documented by: Ascorbic Acid (Ascorbic Acid 500 Mg Tab) 500 mg PO DAILY ABDULLAHI Stop: 10/18/20 10:10 Last Admin: 09/22/20 08:06 Dose: 500 mg Documented by: Furosemide (Furosemide 20 Mg Tab) 20 mg PO Q2D ABDULLAHI Stop: 10/22/20 12:29 Last Admin: 09/22/20 13:18 Dose: 20 mg Documented by: Ceftriaxone Sodium 1,000 mg/ (Dextrose) 50 mls @ 100 mls/hr IV Q24H [facility]; Protocol Stop: 09/26/20 14:59 Last Infusion: 09/21/20 15:48 Dose: Infused Documented by: Levothyroxine Sodium (Levothyroxine Sodium 25 Mcg Tablet) 25 mcg PO DAILYBB [facility] Stop: 10/18/20 10:10 Last Admin: 09/22/20 06:09 Dose: 25 mcg Documented by: Losartan Potassium (Losartan Potassium 25 Mg Tab) 25 mg PO DAILY ABDULLAHI Stop: 10/18/20 10:10 Last Admin: 09/22/20 08:06 Dose: 25 mg Documented by: Metoprolol Succinate (Metoprolol Succ 25mg Ext Rel Tab) 25 mg PO DAILY ABDULLAHI Stop: 10/18/20 10:10 Last Admin: 09/22/20 08:07 Dose: 25 mg Documented by: Morphine Sulfate (Morphine Sulfate 2 Mg/Ml Carp) 2 mg IV Q3H PRN PRN Reason: Pain Stop: 10/02/20 23:45 Last Admin: 09/21/20 08:37 Dose: 2 mg Documented by: Multivitamins (Multivitamin Tab) 1 tab PO DAILY ABDULLAHI Stop: 10/18/20 10:10 Last Admin: 09/22/20 08:07 Dose: 1 tab Documented by: Naloxone HCl (Naloxone Hcl 0.4 Mg/1 Ml Vial/Carp) 0.1 mg IV UD PRN PRN Reason: Opioid Overdose Stop: 10/19/20 16:03 Nitroglycerin (Nitroglycerin Sl 0.4 Mg/Tab Tab) 0.4 mg SL UD PRN PRN Reason: Chest Pain Stop: 10/18/20 10:10 Ondansetron HCl (Ondansetron Inj 2 Mg/Ml 2 Ml Vial) 4 mg IV Q6H PRN PRN Reason: Nausea Stop: 10/18/20 10:10 Polyethylene Glycol (Polyethylene (Miralax) 17 Gm Pack) 17 gm PO DAILY PRN PRN Reason: Constipation Stop: 10/18/20 10:10 Pravastatin Sodium (Pravastatin Sod 20 Mg Tab) 20 mg PO DAILY ABDULLAHI Stop: 10/18/20 10:10 Last Admin: 09/22/20 08:07 Dose: 20 mg Documented by: Sertraline HCl (Sertraline Hcl 50 Mg Tablet) 25 mg PO DAILY ABDLULAHI Stop: 10/20/20 08:59 Last Admin: 09/22/20 08:07 Dose: 25 mg Documented by: (1) Fall Encounter type: initial encounter Qualified Code(s): W19.XXXA - Unspecified fall, initial encounter (2) Closed intertrochanteric fracture of right hip Encounter type: initial encounter Fracture alignment: nondisplaced Qualified Code(s): S72.144A - Nondisplaced intertrochanteric fracture of right femur, initial encounter for closed fracture
--- NOTE | 2020-09-22 14:57 | Discharge Summary ---
Date of Service September 22, 2020 Principal Diagnosis Closed right hip fracture s/p Right hip surgery on 09/[address] Jayjay Nolan Post op Delirium-resolved Post operative anemia Fall h/o SAH Discharge Exam CONSTITUTIONAL: WNWD, vitals as above, NAD EYES: normal conjunctivae, no scleral icterus ENT: external ear and nose normal, MMM RESPIRATORY: clear to auscultation bilaterally, no crackles, rales or wheezes, normal respiratory effort CARDIOVASCULAR: regular rate and rhythm, S1 and 2 heard without murmurs, gallops or rubs, no JVD, no peripheral edema GASTROINTESTINAL: soft, nontender, ND, no guarding MUSCULOSKELETAL: generalized weakness but moves all extremities symmetrically. SKIN: warm and dry, s/p right surgery with incision covered with dry dressing and some ecchymosis around the site. NEUROLOGIC: CN 2-12 grossly intact, no sensory deficit, normal cognition, normal speech, no tremor PSYCHIATRIC: alert and appropriate. Discharge Data Allergies Allergy/AdvReac Type Severity Reaction Status Date / Time chlorthalidone Allergy Severe Rash Verified 09/10/20 03:00 alendronate sodium AdvReac Intermediate Gastrointestinal Verified 09/10/20 03:00 [From Fosamax] Upset NSAIDS (Non-Steroidal AdvReac Intermediate Hypertensio Verified 09/10/20 03:00 Anti-Inflamma n Consultations 09/18/20 04:42 ED Decision to Admit Stat 09/18/20 10:11 Consult Orthopedic Surgery Routine Procedures Performed Operation Date: 09/19/20 09:35 Actual Procedures p Right Hip Cephalomedullary Nail(Right) - Jayjay Vazquez, DO Ordered Studies Laboratory Results WBC 10.63 K/uL (4.8-10.8) 09/22/20 05:43 RBC 2.80 M/uL (4.2-5.4) L 09/22/20 05:43 Hgb 8.6 g/dL (12.0-16.0) L 09/22/20 05:43 Hct 25.9 % (37-47) L 09/22/20 05:43 MCV 92.5 fL (80-100) 09/22/20 05:43 MCH 30.7 pg (25-34) 09/22/20 05:43 MCHC 33.2 g/dL (32-36) 09/22/20 05:43 RDW Std Deviation 49.7 fL (36.4-46.3) H 09/22/20 05:43 RDW Coeff of Dennis 14.8 % (11.5-14.5) H 09/22/20 05:43 Plt Count 249 K/uL (130-400) 09/22/20 05:43 MPV 9.4 fL (7.4-10.4) 09/22/20 05:43 Immature Gran % (Auto) 0.9 % 09/22/20 05:43 Neut % (Auto) 66.5 % 09/22/20 05:43 Lymph % (Auto) 23.0 % 09/22/20 05:43 Avery % (Auto) 8.4 % 09/22/20 05:43 Eos % (Auto) 1.1 % 09/22/20 05:43 Baso % (Auto) 0.1 % 09/22/20 05:43 Neut # (Auto) 7.06 K/uL (1.4-6.5) H 09/22/20 05:43 Lymph # (Auto) 2.45 K/uL (1.2-3.4) 09/22/20 05:43 Avery # (Auto) 0.89 K/uL (0.11-0.59) H 09/22/20 05:43 Eos # (Auto) 0.12 K/uL (0-0.5) 09/22/20 05:43 Baso # (Auto) 0.01 K/uL (0-0.2) 09/22/20 05:43 Immature Gran # (Auto) 0.10 K/uL (0.00-0.02) H 09/22/20 05:43 Sodium 140 mmol/L (136-145) 09/21/20 16:22 Potassium 3.5 mmol/L (3.5-5.1) 09/21/20 16:22 Chloride 111 mmol/L (98-107) H 09/21/20 16:22 Carbon Dioxide 25 mmol/L (21-32) 09/21/20 16:22 Anion Gap 4.0 (3-11) 09/21/20 16:22 BUN 12 mg/dl (7-18) 09/21/20 16:22 Creatinine 0.49 mg/dl (0.6-1.2) L 09/21/20 16:22 Est Cr Clr Drug Dosing 65.4 ml/min 09/21/20 16:22 Est GFR ( Amer) 100.8 ml/min 09/21/20 16:22 Est GFR (Non-Af Amer) 87.0 ml/min 09/21/20 16:22 BUN/Creatinine Ratio 24.6 (10-20) H 09/21/20 16:22 Glucose 142 mg/dl (70-99) H 09/21/20 16:22 Calcium 7.8 mg/dl (8.5-10.1) L 09/21/20 16:22 Phosphorus 2.0 mg/dl (2.5-4.9) L 09/21/20 16:22 Magnesium 2.3 mg/dl (1.8-2.4) 09/21/20 16:22 Troponin I 0.018 ng/ml (0-0.045) 09/20/20 07:28 Albumin 2.5 gm/dl (3.4-5.0) L 09/21/20 08:05 Specimen Hemolysis 09/18/20 03:30 Urine Color Dark Yellow 09/21/20 09:25 Urine Appearance Clear (Clear) 09/21/20 09:25 Urine pH 5.5 (4.5-7.5) 09/21/20 09:25 Ur Specific Mcgrann 1.017 (1.000-1.030) 09/21/20 09:25 Urine Protein Trace (Negative) H 09/21/20 09:25 Urine Glucose (UA) Negative (Negative) 09/21/20 09:25 Urine Ketones 4+ (Negative) H 09/21/20 09:25 Urine Blood 2+ (Negative) H 09/21/20 09:25 Urine Nitrite Negative (Negative) 09/21/20 09:25 Urine Bilirubin 1+ (Negative) H 09/21/20 09:25 Urine Urobilinogen Negative (Negative) 09/21/20 09:25 Ur Leukocyte Esterase 2+ (Negative) H 09/21/20 09:25 Urine WBC (Auto) >30 /hpf (0-5) H 09/21/20 09:25 Urine RBC (Auto) 5-10 /hpf (0-4) H 09/21/20 09:25 U Hyaline Cast (Auto) 1-5 /lpf (0-5) 09/21/20 09:25 U Epithel Cells (Auto) >30 /lpf (0-5) H 09/21/20 09:25 Urine Bacteria (Auto) Negative (Negative) 09/21/20 09:25 Ur Renal Epithelial Cell Not Reportable 09/21/20 09:25 Urine Mucus Present (None Prsent) A 09/21/20 09:25 COVID-19 Eval Order Covid19 at [facility] 09/18/20 04:45 SARS-CoV-2 (PCR) NEGATIVE (Negative) 09/18/20 04:45 Impressions Chest X-Ray 09/18/20 03:34 XR chest 1V portable CLINICAL HISTORY: Trauma. Weakness. COMPARISON STUDY: 09/10/2020 FINDINGS: The patient remains hyperinflated. There is no pneumothorax. There is no focal pulmonary consolidation. There is no overt failure. There are no pleur al effusions.[ IMPRESSION: Hyperinflation. No acute findings. ACT 112: Negative or not required by law. Electronically signed by: Jared Randhawa M.D. 09/18/2020 7:22 AM Femur X-Ray 09/18/20 03:34 XR femur RT 2V routine CLINICAL HISTORY: right distal thigh pain COMPARISON: None. DISCUSSION: There is acute intertrochanteric right hip fracture. No additional femoral fractures are visualized. There are degenerative changes within the with chondrocalcinosis. There is distal quadriceps calcification. IMPRESSION: Intertrochanteric right hip fracture. ACT 112: Negative or not required by law. Electronically signed by: Jared Randhawa M.D. 09/18/2020 7:20 AM Pelvis X-Ray 09/18/20 03:34 XR pelvis 1-2V routine CLINICAL HISTORY: Pelvic pain status post trauma COMPARISON: None. DISCUSSION: The bones are osteopenic. There is an acute intertrochanteric right hip fracture. There are no musculotendinous calcifications involving the insertions at the level of the inferior ischial spines. IMPRESSION: Acute intertrochanteric right hip fracture. ACT 112: Negative or not required by law. Electronically signed by: Jared Randhawa M.D. 09/18/2020 7:21 AM Hip X-Ray 09/19/20 15:35 RIGHT HIP 2 VIEWS CLINICAL HISTORY: Postoperative examination. FINDINGS: AP and crosstable lateral views of the right hip are compared to study dated 09/18/2020. Intertrochanteric and intramedullary nails have been placed transfixing an intertrochanteric fracture of the right femur. Near-anatomic alignment is restored. A single cortical screw transfixes the distal end of the intramedullary nail. There is medial displacement of the lesser trochanter. No new fracture is seen. The visualized right hemipelvis appears intact. Moderate arthritic change and degenerative joint space narrowing is seen in the right hip. Skin clips, subcutaneous gas, and soft tissue edema around the right hip are expected postoperative findings. IMPRESSION: Expected postoperative findings status post open reduction and internal fixation of a right proximal femoral fracture. See above. Electronically signed by: Yusuf Cisneros M.D. 09/19/2020 3:[address] 09/20/20 10:52 CT head/brain wo con CLINICAL HISTORY: Subarachnoid hemorrhage. Confusion. COMPARISON STUDY: 09/18/2020 TECHNIQUE: Axial CT of the brain is performed from the vertex to the skull base. IV contrast was not administered for this examination. A dose lowering technique was utilized adhering to the principles of ALARA. CT DOSE: 788.63 mGycm FINDINGS: There is trace residual subarachnoid hemorrhage within the left convexity. There is no evidence of intraparenchymal hemorrhage. No intracranial masses are visualized. There is no midline shift. There are persistent bilateral extra- axial low-density fluid collections measuring 7 mm in thickness. These are consistent with subdural hygromas versus subacute subdural hematomas. There are patchy white matter hypodensities likely on a small vessel basis. 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 There is no evidence of acute sinusitis IMPRESSION: 1. Trace residual subarachnoid hemorrhage within the left convexity 2. No evidence of intraparenchymal hemorrhage 3. Persistent bilateral extra-axial low-density fluid collections measuring 7 mm in thickness. ACT 112: Negative or not required by law. Electronically signed by: Jared Randhawa M.D. 09/20/2020 12:15 PM Hospital Course (1) Postoperative delirium: Likely related to recent surgery--resolved. She had a recent hospitalization for fall SAH, which appears to be resolving with no worsening of hemorrhage on CT head. Cont supportive care. Tylenol PRN (2) Closed intertrochanteric fracture of right hip: POD# 3 s/p R hip surgery Toe touch weight bearing on the RLE Cont pain control No chemoprophylaxis in light of recent SAH. Transfer to rehab (3) Postoperative anemia: There is a fair amount of ecchymosis around the right incision site. Would recommend repeat H/H in one week. (4) Fall: wtih R hip fracture, s/p surgery above. Will look for rehab as a transition to home at discharge. (5) Subarachnoid hemorrhage: known recent SAH, admission CT discussed with neurosurgeon on admission. Improved scan. Cont to avoid blood thinners. (6) HTN (hypertension): at goal, cont amlodipine and losartan per home regimen. (7) Hypothyroidism: cont synthroid per home regimen. Total Time Total Time Spent Total Time Spent (In Minutes): 60 Discharge Plan Discharge Items Patient Disposition: Transfer [facility] Reason For Visit: FALL Discharge Diagnosis: Closed right hip fracture s/p Right hip surgery on 09/[address] Jayjay Nolan Post op Delirium-resolved Post operative anemia Fall h/o SAH Activity: As commented below Activity Comment: TTWB RLE Non-emergency contact: Primary Care Provider Call non-emergency contact if: you have any medication questions, your symptoms worsen, your pain is not controlled, your pain is worsening, your pain is unusual for you, your pain is concerning for you, you have a fever, your wound has increased redness, your wound has increased drainage and your wound pain has increased Follow-up/Referrals: Sallie Hoang DO [Primary Care Provider] - Diet: Regular Addtl Attending Provider Instructions: Please follow all post operative intstructions as outlined by your orthopedic team below. It is recommended that you have a repeat H/H in one week. It is recommended that you see your primary care provider within one week of discharge to ensure you are still doing well It was a pleasure taking care of you! Please call if you have any questions or problems. You can reach a [facility] hospitalist on duty at [facility] 24 hours a day by calling [phone]. Take care of yourself. Kayley Gregorio DO [facility] Hospitalist Addtl [employer] Provider Instructions: [facility] DISCHARGE INSTRUCTIONS: HIP FRACTURE SELF CARE INSTRUCTIONS: A. You are to ambulate with a walker or crutches for approximately 6 weeks. B. You are TOE TOUCH WEIGHT BEARING on your operative lower extremity for at least 6 weeks. C. Wear low heeled shoes with non-slip soles D. Be sure that your floors are free of things that could trip you throw rugs, electrical cords, and small objects. Avoid wet and waxed floors, especially with crutches/walker/cane. E. Try to walk several times a day with rest periods between. F. You may shower 48 hours after surgery and get the incision area wet, but DO NOT soak or submerge incision area in water. (No baths, swimming pools, hot tubs) G. You may have a large, band-aid like dressing over your incision (Aquacel). This will remain on your incision for 7 days, and then can be removed. You CAN shower with this on. If incision is leaking through the dressing, please call the office . H. Do NOT apply soap or any ointment/lotions directly over incision. I. You may use ice as needed to operative site. SPECIAL CARE INSTRUCTIONS: VERY IMPORTANT TO READ AND REVIEW A. You may be at risk for phlebitis or blood clots. a. Wear surgical stockings (MARIAH hose) for 2 weeks after surgery to improve circulation and reduce swelling. B. There are a few signs you need to watch for after you are home. Call [facility] at [phone] if you experience any of the following: a. If you have a temperature of 101 degrees or higher. b. Sudden increase in pain in your hip not relieved by rest or pain medication. c. Any fluid or drainage from the incision; redness of the incision. d. Shortness of breath or chest pain. . C. Call your physician if: a. Temperature is greater than 101 degrees (F). b. Pain is not relieved by prescribed pain medications. c. Increase drainage or redness from incision. d. Unanswered questions or concerns. D. Pain Medication: a. You will be prescribed pain medication upon discharge that should last till your first post-operative appointment. b. If you experience nausea and/or skin rash, discontinue this medication and contact our office for an alternative medication. c. Caution- narcotic pain medication can cause constipation. FOLLOW UP VISIT: Please call [facility] at [phone] to schedule a follow up appointment 10-14 days from the date of your surgery date. Pending Studies at Discharge: No Stand-Alone Forms: My [facility] Skilled Items Patient informed of condition?: Yes DNR: Yes Discharge Level of Care: Skilled Communicable Disease: No Discharge Prognosis: Stable Lines: None Urinary Catheter: No Medications and DC Order Prescriptions: Continued multivitamin Tablet 1 tab PO DAILY RF: 0 levothyroxine 25 mcg tablet 25 mcg PO DAILY RF: 0 metoprolol succinate 25 mg Tablet Extended Release 24 Hr 25 mg PO DAILY Qty: 30 RF: 1 losartan 25 mg tablet 25 mg PO DAILY RF: 0 pravastatin 20 mg tablet 20 mg PO DAILY RF: 0 Tubersol 5 tub. unit /0.1 mL Solution 5 tb unit INTRADERMAL DIRECTED RF: 0 sertraline 25 mg Tablet 25 mg PO DAILY RF: 0 furosemide 20 mg Tablet 20 mg PO Q OTHER DAY RF: 0 amlodipine 10 mg tablet 10 mg PO DAILY RF: 0 Discontinued levetiracetam 500 mg Tablet 500 mg PO BID RF: 0 enoxaparin 30 mg/0.3 mL Syringe 30 mg SUBCUT Q12H RF: 0 Admission Data Admit Date/Time: 09/18/20 06:31 Attending Provider: Kayley Gregorio Admit Provider: Baldemar Cronin Primary Care Provider: Sallie Hoang Other Providers: Isabel Bonilla ; Baldemar Cronin ; Porfirio Storm
[2020-09-22] MEDS: cefTRIAXone SODIUM 1,000 MG in DEXTROSE 5% 50 ML IV SCH (15:30)
[2020-09-23] MEDS: LEVOTHYROXINE SODIUM 25 MCG TABLET PO SCH (05:04)
[2020-09-23 06:53] LABS: Hemoglobin 9.2 g/dL (12.0-16.0); Mean Corpuscular Hemoglobin 30.6 pg (25-34); Mean Corpuscular Hgb Conc 32.9 g/dL (32-36); Nucleated RBC # (auto) 0.02 K/uL (0-0); Nucleated RBC % (auto) 0.2 %; Platelet Count 306 K/uL (130-400); RDW Coefficient of Variation 14.9 % (11.5-14.5); RDW Standard Deviation 50.2 fL (36.4-46.3); Red Blood Count 3.01 M/uL (4.2-5.4); White Blood Count 8.78 K/uL (4.8-10.8)
[2020-09-23 07:13] LABS: BUN Creatinine Ratio 21.8 (10-20); Calcium 8.1 mg/dl (8.5-10.1); Creatinine Clr Calc Pharmacy 74.4 ml/min; Est GFR (African American) 105.3 ml/min; Est GFR (Non-African American) 90.8 ml/min; Potassium 3.3 mmol/L (3.5-5.1)
[2020-09-23] MEDS: ACETAMINOPHEN 325 MG TAB PO SCH ×2 (08:08→16:33)
[2020-09-23] MEDS: ASCORBIC ACID 500 MG TAB PO SCH (08:09)
[2020-09-23] MEDS: amLODIPine BESYLATE 5 MG TAB PO SCH (08:09)
[2020-09-23] MEDS: PRAVASTATIN SOD 20 MG TAB PO SCH (08:10)
[2020-09-23] MEDS: LOSARTAN POTASSIUM 25 MG TAB PO SCH (08:10)
[2020-09-23] MEDS: METOPROLOL SUCC 25MG EXT REL TAB PO SCH (08:10)
[2020-09-23] MEDS: SERTRALINE HCL 50 MG TABLET PO SCH (08:10)
[2020-09-23] MEDS: MULTIVITAMIN TAB PO SCH (08:10)
[2020-09-23] MEDS ORDERED: POTASSIUM CHLORIDE PWD 20 MEQ PACK PO ONE (09:00)
[2020-09-23] MEDS ORDERED: SODIUM PHOSPHATE 3 MMOL/1 ML 5 ML VIAL IV ONE (09:16)
[2020-09-23] MEDS ORDERED: SODIUM PHOSPHATE 30 MMOL in SODIUM CHLORIDE 0.9% 500 ML IV ONE (09:30)
[2020-09-23] MEDS: POLYETHYLENE (MIRALAX) 17 GM PACK PO PRN (10:19)
--- NOTE | 2020-09-23 13:20 | Hospitalist Progress Note ---
Date of Service September 23, 2020 Assessment & Plan (1) Closed intertrochanteric fracture of right hip: Plan: POD# 4 s/p R hip surgery Toe touch weight bearing on the RLE Cont pain control No chemoprophylaxis in light of recent SAH. Transfer to rehab (2) Postoperative anemia: Plan: There is a fair amount of ecchymosis around the right incision site. Would recommend repeat H/H in one week. H/H already improving this morning. (3) Postoperative delirium: Plan: Resolved. She had a recent hospitalization for fall SAH, which appears to be resolving with no worsening of hemorrhage on repeat CT head. Cont supportive care. Tylenol PRN (4) Fall: Plan: with R hip fracture, s/p surgery above. Will look for rehab as a transition to home at discharge. (5) Subarachnoid hemorrhage: Plan: known recent SAH, admission CT discussed with neurosurgeon on admission. Improved scan. Cont to avoid blood thinners. (6) HTN (hypertension): Plan: elevated persistently, cont amlodipine and increase losartan from 25mg to 50mg daily. Will give extra dose now. (7) Hypothyroidism: Plan: cont synthroid per home regimen. (8) Hypophosphatemia: Plan: replacement given. Patient reports eating. Will recheck in am. (9) DVT prophylaxis: Plan: SCDs/recent hospitalization for SAH DNR Dispo-to rehab after the weekend. Kayley Gregorio DO [facility] Hospitalist Admission and Anticipated Discharge Date Admission Date: September 18, 2020 Subjective s/p R hip surgery denies SOB, chest pain Feeling well generally Was a little guarded initially as she felt no one was letting her know what was going on. When I explained that she would go to rehab on Friday or , she felt better Anemia better, phos 1.4--she reports eating "so much yesterday I felt like I could bust" Review of Systems Review of Systems: All systems were reviewed and negative except as indicated in HPI above. Physical Exam Physical Exam: CONSTITUTIONAL: WNWD, vitals as above, NAD EYES: normal conjunctivae, no scleral icterus ENT: external ear and nose normal, MMM RESPIRATORY: clear to auscultation bilaterally, no crackles, rales or wheezes, normal respiratory effort CARDIOVASCULAR: regular rate and rhythm, S1 and 2 heard without murmurs, gall ops or rubs, no JVD, no peripheral edema GASTROINTESTINAL: soft, nontender, ND, no guarding MUSCULOSKELETAL: generalized weakness but moves all extremities symmetrically. SKIN: warm and dry, s/p right surgery with incision covered with dry dressing and some ecchymosis around the site. NEUROLOGIC: CN 2-12 grossly intact, no sensory deficit, normal cognition, normal speech, no tremor PSYCHIATRIC: alert and appropriate. Results & Data Results & Data ([facility]) Vital Signs (Past 12 Hours) Vital Signs Temp Pulse Resp BP Pulse Ox 09/23/20 11:24 36.3 C L 83 18 160/67 H 98 09/23/20 08:48 86 153/67 H 09/23/20 07:18 36.6 C 89 18 181/67 H 98 Laboratory Results Short CBC 09/23/20 Range/Units 06:41 WBC 8.78 (4.8-10.8) K/uL Hgb 9.2 L (12.0-16.0) g/dL Hct 28.0 L (37-47) % Plt Count 306 (130-400) K/uL BMP 09/23/20 06:41 Sodium 139 Potassium 3.3 L Chloride 108 H Carbon Dioxide 28 BUN 9 Creatinine 0.43 L Glucose 102 H Calcium 8.1 L Medications Administered Current Inpatient Medications Acetaminophen (Acetaminophen 325 Mg Tab) 650 mg PO Q8H ABDULLAHI Stop: 10/20/20 23:29 Last Admin: 09/23/20 08:08 Dose: 650 mg Documented by: Amlodipine Besylate (Amlodipine Besylate 5 Mg Tab) 10 mg PO DAILY ABDULLAHI Stop: 10/18/20 10:10 Last Admin: 09/23/20 08:09 Dose: 10 mg Documented by: Ascorbic Acid (Ascorbic Acid 500 Mg Tab) 500 mg PO DAILY ABDULLAHI Stop: 10/18/20 10:10 Last Admin: 09/23/20 08:09 Dose: 500 mg Documented by: Furosemide (Furosemide 20 Mg Tab) 20 mg PO Q2D ABDULLAHI Stop: 10/22/20 12:29 Last Admin: 09/22/20 13:18 Dose: 20 mg Documented by: Sodium Phosphate 30 mmol/ (Sodium Chloride) 510 mls @ 88 mls/hr IV ONE ONE Stop: 09/23/20 15:17 Last Admin: 09/23/20 10:19 Dose: 88 mls/hr Documented by: Levothyroxine Sodium (Levothyroxine Sodium 25 Mcg Tablet) 25 mcg PO DAILYBB [facility] Stop: 10/18/20 10:10 Last Admin: 09/23/20 05:04 Dose: 25 mcg Documented by: Losartan Potassium (Losartan Potassium 25 Mg Tab) 25 mg PO DAILY ABDULLAHI Stop: 10/18/20 10:10 Last Admin: 09/23/20 08:10 Dose: 25 mg Documented by: Metoprolol Succinate (Metoprolol Succ 25mg Ext Rel Tab) 25 mg PO DAILY ABDULLAHI Stop: 10/18/20 10:10 Last Admin: 09/23/20 08:10 Dose: 25 mg Documented by: Morphine Sulfate (Morphine Sulfate 2 Mg/Ml Carp) 2 mg IV Q3H PRN PRN Reason: Pain Stop: 10/02/20 23:45 Last Admin: 09/21/20 08:37 Dose: 2 mg Documented by: Multivitamins (Multivitamin Tab) 1 tab PO DAILY [facility] Stop: 10/18/20 10:10 Last Admin: 09/23/20 08:10 Dose: 1 tab Documented by: Naloxone HCl (Naloxone Hcl 0.4 Mg/1 Ml Vial/Carp) 0.1 mg IV UD PRN PRN Reason: Opioid Overdose Stop: 10/19/20 16:03 Nitroglycerin (Nitroglycerin Sl 0.4 Mg/Tab Tab) 0.4 mg SL UD PRN PRN Reason: Chest Pain Stop: 10/18/20 10:10 Ondansetron HCl (Ondansetron Inj 2 Mg/Ml 2 Ml Vial) 4 mg IV Q6H PRN PRN Reason: Nausea Stop: 10/18/20 10:10 Polyethylene Glycol (Polyethylene (Miralax) 17 Gm Pack) 17 gm PO DAILY PRN PRN Reason: Constipation Stop: 10/18/20 10:10 Last Admin: 09/23/20 10:19 Dose: 17 gm Documented by: Pravastatin Sodium (Pravastatin Sod 20 Mg Tab) 20 mg PO DAILY [facility] Stop: 10/18/20 10:10 Last Admin: 09/23/20 08:10 Dose: 20 mg Documented by: Sertraline HCl (Sertraline Hcl 50 Mg Tablet) 25 mg PO DAILY [facility] Stop: 10/20/20 08:59 Last Admin: 09/23/20 08:10 Dose: 25 mg Documented by: (1) Closed intertrochanteric fracture of right hip Encounter type: initial encounter Fracture alignment: nondisplaced Qualified Code(s): S72.144A - Nondisplaced intertrochanteric fracture of right femur, initial encounter for closed fracture (2) Fall Encounter type: initial encounter Qualified Code(s): W19.XXXA - Unspecified fall, initial encounter
[2020-09-23] MEDS ORDERED: LOSARTAN POTASSIUM 25 MG TAB PO SCH (13:45)
[2020-09-24] MEDS: ACETAMINOPHEN 325 MG TAB PO SCH ×4 (00:48→21:06)
[2020-09-24] MEDS: LEVOTHYROXINE SODIUM 25 MCG TABLET PO SCH (06:37)
[2020-09-24 06:57] LABS: BUN Creatinine Ratio 27.4 (10-20); Calcium 8.7 mg/dl (8.5-10.1); Creatinine Clr Calc Pharmacy 85.6 ml/min; Est GFR (African American) 112.6 ml/min; Est GFR (Non-African American) 97.2 ml/min; Phosphorus 2.4 mg/dl (2.5-4.9); Potassium 3.9 mmol/L (3.5-5.1)
[2020-09-24] MEDS: POLYETHYLENE (MIRALAX) 17 GM PACK PO PRN (08:00)
[2020-09-24] MEDS: ASCORBIC ACID 500 MG TAB PO SCH (08:01)
[2020-09-24] MEDS: amLODIPine BESYLATE 5 MG TAB PO SCH (08:01)
[2020-09-24] MEDS: LOSARTAN POTASSIUM 50 MG TAB PO SCH (08:01)
[2020-09-24] MEDS: SERTRALINE HCL 50 MG TABLET PO SCH (08:02)
[2020-09-24] MEDS: MULTIVITAMIN TAB PO SCH (08:02)
[2020-09-24] MEDS: METOPROLOL SUCC 25MG EXT REL TAB PO SCH (08:02)
[2020-09-24] MEDS: PRAVASTATIN SOD 20 MG TAB PO SCH (08:03)
[2020-09-24] MEDS: FUROSEMIDE 20 MG TAB PO SCH (11:54)
--- NOTE | 2020-09-24 15:40 | Hospitalist Progress Note ---
Date of Service September 24, 2020 Assessment & Plan (1) Closed intertrochanteric fracture of right hip: Plan: POD# 5 s/p R hip surgery Toe touch weight bearing on the RLE Cont pain control No chemoprophylaxis in light of recent SAH. Transfer to rehab (2) Postoperative anemia: Plan: There is a fair amount of ecchymosis around the right incision site that is improving. Would recommend repeat H/H in one week. H/H already improving. (3) Postoperative delirium: Plan: Resolved. She had a recent hospitalization for fall SAH, which appears to be resolving with no worsening of hemorrhage on repeat CT head. Cont supportive care. Tylenol PRN (4) Fall: Plan: with R hip fracture, s/p surgery above. Will look for rehab as a transition to home at discharge. (5) Subarachnoid hemorrhage: Plan: known recent SAH, admission CT discussed with neurosurgeon on admission. Improved scan. Cont to avoid blood thinners. (6) HTN (hypertension): Plan: elevated persistently, cont amlodipine and increased losartan to 50mg daily. BP improved. (7) Hypothyroidism: Plan: cont synthroid per home regimen. (8) Hypophosphatemia: Plan: replacement given. Patient reports eating. Will recheck in am. (9) DVT prophylaxis: Plan: SCDs/recent hospitalization for SAH DNR Dispo-to rehab after the weekend. Kayley Gregorio DO [facility] Hospitalist Admission and Anticipated Discharge Date Admission Date: September 18, 2020 Subjective s/p R hip surgery denies SOB, chest pain Feeling well generally tolerating PO Review of Systems Review of Systems: All systems were reviewed and negative except as indicated in HPI above. Physical Exam Physical Exam: CONSTITUTIONAL: WNWD, vitals as above, NAD EYES: normal conjunctivae, no scleral icterus ENT: external ear and nose normal, MMM RESPIRATORY: clear to auscultation bilaterally, no crackles, rales or wheezes, normal respiratory effort CARDIOVASCULAR: regular rate and rhythm, S1 and 2 heard without murmurs, gallops or rubs, no JVD, no peripheral edema GASTROINTESTINAL: soft, nontender, ND, no guarding MUSCULOSKELETAL: generalized weakness but moves all extremities symmetrically. SKIN: warm and dry, s/p right surgery with incision covered with dry dressing and some ecchymosis around the site. NEUROLOGIC: CN 2-12 grossly intact, no sensory deficit, normal cognition, normal speech, no tremor PSYCHIATRIC: alert and appropriate. Results & Data Results & Data ([facility]) Vital Signs (Past 12 Hours) Vital Signs Temp Pulse Resp BP BP Pulse Ox 09/24/20 15:07 36.9 C 88 18 149/65 H 95 09/24/20 11:05 36.8 C 90 18 107/63 98 09/24/20 07:12 36.6 C 80 16 168/77 H 97 09/24/20 06:49 86 16 165/66 H 96 Laboratory Results BMP 09/24/20 05:56 Sodium 139 Potassium 3.9 D Chloride 108 H Carbon Dioxide 27 BUN 10 Creatinine 0.35 L Glucose 99 Calcium 8.7 Medications Administered Current Inpatient Medications Acetaminophen (Acetaminophen 325 Mg Tab) 650 mg PO Q8H ABDULLAHI Stop: 10/20/20 23:29 Last Admin: 09/24/20 08:00 Dose: 650 mg Documented by: Amlodipine Besylate (Amlodipine Besylate 5 Mg Tab) 10 mg PO DAILY ABDULLAHI Stop: 10/18/20 10:10 Last Admin: 09/24/20 08:01 Dose: 10 mg Documented by: Ascorbic Acid (Ascorbic Acid 500 Mg Tab) 500 mg PO DAILY ABDULLAHI Stop: 10/18/20 10:10 Last Admin: 09/24/20 08:01 Dose: 500 mg Documented by: Furosemide (Furosemide 20 Mg Tab) 20 mg PO Q2D ABDULLAHI Stop: 10/22/20 12:29 Last Admin: 09/24/20 11:54 Dose: 20 mg Documented by: Levothyroxine Sodium (Levothyroxine Sodium 25 Mcg Tablet) 25 mcg PO DAILYBB ABDULLAHI Stop: 10/18/20 10:10 Last Admin: 09/24/20 06:37 Dose: 25 mcg Documented by: Losartan Potassium (Losartan Potassium 50 Mg Tab) 50 mg PO DAILY ABDULLAHI Stop: 10/24/20 08:59 Last Admin: 09/24/20 08:01 Dose: 50 mg Documented by: Metoprolol Succinate (Metoprolol Succ 25mg Ext Rel Tab) 25 mg PO DAILY ABDULLAHI Stop: 10/18/20 10:10 Last Admin: 09/24/20 08:02 Dose: 25 mg Documented by: Morphine Sulfate (Morphine Sulfate 2 Mg/Ml Carp) 2 mg IV Q3H PRN PRN Reason: Pain Stop: 10/02/20 23:45 Last Admin: 09/21/20 08:37 Dose: 2 mg Documented by: Multivitamins (Multivitamin Tab) 1 tab PO DAILY ABDULLAHI Stop: 10/18/20 10:10 Last Admin: 09/24/20 08:02 Dose: 1 tab Documented by: Naloxone HCl (Naloxone Hcl 0.4 Mg/1 Ml Vial/Carp) 0.1 mg IV UD PRN PRN Reason: Opioid Overdose Stop: 10/19/20 16:03 Nitroglycerin (Nitroglycerin Sl 0.4 Mg/Tab Tab) 0.4 mg SL UD PRN PRN Reason: Chest Pain Stop: 10/18/20 10:10 Ondansetron HCl (Ondansetron Inj 2 Mg/Ml 2 Ml Vial) 4 mg IV Q6H PRN PRN Reason: Nausea Stop: 10/18/20 10:10 Polyethylene Glycol (Polyethylene (Miralax) 17 Gm Pack) 17 gm PO DAILY PRN PRN Reason: Constipation Stop: 10/18/20 10:10 Last Admin: 09/24/20 08:00 Dose: 17 gm Documented by: Pravastatin Sodium (Pravastatin Sod 20 Mg Tab) 20 mg PO DAILY ABDULLAHI Stop: 10/18/20 10:10 Last Admin: 09/24/20 08:03 Dose: 20 mg Documented by: Sertraline HCl (Sertraline Hcl 50 Mg Tablet) 25 mg PO DAILY ABDULLAHI Stop: 10/20/20 08:59 Last Admin: 09/24/20 08:02 Dose: 25 mg Documented by: (1) Closed intertrochanteric fracture of right hip Encounter type: initial encounter Fracture alignment: nondisplaced Qualified Code(s): S72.144A - Nondisplaced intertrochanteric fracture of right femur, initial encounter for closed fracture (2) Fall Encounter type: initial encounter Qualified Code(s): W19.XXXA - Unspecified fall, initial encounter
[2020-09-25] MEDS: LEVOTHYROXINE SODIUM 25 MCG TABLET PO SCH (06:04)
[2020-09-25] MEDS: PRAVASTATIN SOD 20 MG TAB PO SCH (07:43)
[2020-09-25] MEDS: MULTIVITAMIN TAB PO SCH (07:43)
[2020-09-25] MEDS: METOPROLOL SUCC 25MG EXT REL TAB PO SCH (07:43)
[2020-09-25] MEDS: LOSARTAN POTASSIUM 50 MG TAB PO SCH (07:43)
[2020-09-25] MEDS: SERTRALINE HCL 50 MG TABLET PO SCH (07:43)
[2020-09-25] MEDS: ASCORBIC ACID 500 MG TAB PO SCH (07:44)
[2020-09-25] MEDS: amLODIPine BESYLATE 5 MG TAB PO SCH (07:44)
[2020-09-25] MEDS: ACETAMINOPHEN 325 MG TAB PO SCH (07:44)
[2020-09-25 08:30] LABS: Hemoglobin 10.4 g/dL (12.0-16.0); Mean Corpuscular Hemoglobin 30.7 pg (25-34); Mean Corpuscular Hgb Conc 32.5 g/dL (32-36); Mean Corpuscular Volume 94.4 fL (80-100); Mean Platelet Volume 9.3 fL (7.4-10.4); Platelet Count 416 K/uL (130-400); RDW Coefficient of Variation 15.5 % (11.5-14.5); RDW Standard Deviation 52.7 fL (36.4-46.3); Red Blood Count 3.39 M/uL (4.2-5.4); White Blood Count 12.01 K/uL (4.8-10.8)
[2020-09-25 09:00] LABS: BUN Creatinine Ratio 24.6 (10-20); Calcium 8.9 mg/dl (8.5-10.1); Creatinine Clr Calc Pharmacy 48.3 ml/min; Est GFR (African American) 93.3 ml/min; Est GFR (Non-African American) 80.5 ml/min; Magnesium 1.8 mg/dl (1.8-2.4); Potassium 3.7 mmol/L (3.5-5.1)
[2020-09-25 09:01] LABS: Phosphorus 2.7 mg/dl (2.5-4.9)
--- NOTE | 2020-09-25 14:29 | Discharge Summary ---
Date of Service September 25, 2020 Admission HPI Per Admitting Provider HISTORY OF PRESENT ILLNESS: An 89-year-old female with past medical history significant for hyperlipidemia, subclinical hypothyroidism, history of mitral valve prolapse, hypertension, varicose veins of lower extremities, history of UTI, history of osteoporosis, bilateral leg edema, history of delirium, history of insomnia, history of generalized anxiety disorder, history of recent fall at home and traumatic subarachnoid hemorrhage. At that time, she was transferred from [facility] to [facility] on 09/10/2020. She was started on Keppra to continue until 09/17/2020 and her CAT scan remained stable and she was advised not to take any antiplatelet/anticoagulation medication until seen by neurosurgery in followup. She was also found to have a pericardial effusion. Evaluated by cardiology team, to follow up with cardiology in 1 month. She was treated with antibiotics for UTI and discharged to [facility] on 09/16/2020. The patient says she was trying to walk in the night, trying to reach her walker when she fell on her knees. She hit her head, but not very mildly, no loss of consciousness and she was brought in here .Question of passing out for a few seconds, but the patient denies it. She does not remember passing out. She complained of some thigh pain and brought in here and found to have a right hip fracture. Currently, resting comfortably and hemodynamically stable, alert and awake, oriented to name and place, confused with the dates. Denies any headache, denies any blurred visions, no earache, no runny nose. She says, once in a while, she has some cough. No chest pain, no shortness of breath. Says once in a while she gets abdominal pain. Currently, no abdominal pain. She says she moved her bowels in the morning. Normal bladder movements. Currently, hemodynamically stable. Admission Exam Per Admitting Provider PHYSICAL EXAMINATION: GENERAL: The patient is alert and awake, not in acute distress. VITAL SIGNS: Temperature 36.6, pulse 71, respiratory rate 16, blood pressure 174/87, oxygen 97% on room air. HEENT: Pupils equal, round and reactive to light. Oral mucosa moist. NECK: No JVD, no neck masses. CARDIOVASCULAR: S1 and S2 heard. Regular rate and rhythm. No murmur, no gallop. RESPIRATORY SYSTEM: Normal AP diameter. No accessory muscle use. No wheezing, no crackles. ABDOMEN: Soft, bowel sounds present, nontender, no distention. CENTRAL NERVOUS SYSTEM: Alert and awake, oriented to name and place. Speech clear. No facial droop seen. Obeys simple commands. EXTREMITIES: No edema, no erythema. Right lower extremity is shortened. Principal Diagnosis Closed right hip fracture s/p Right hip surgery on 09/[address] Jayjay Nolan Post op Delirium-resolved Post operative anemia Fall h/o SAH Discharge Exam CONSTITUTIONAL: WNWD, vitals as above, NAD EYES: normal conjunctivae, no scleral icterus ENT: external ear and nose normal, MMM RESPIRATORY: clear to auscultation bilaterally, no crackles, rales or wheezes, normal respiratory effort CARDIOVASCULAR: regular rate and rhythm, S1 and 2 heard without murmurs, gallops or rubs, no JVD, no peripheral edema GASTROINTESTINAL: soft, nontender, ND, no guarding MUSCULOSKELETAL: generalized weakness but moves all extremities symmetrically. SKIN: warm and dry, s/p right surgery with incision covered with dry dressing and some ecchymosis around the site and down the posterior right leg NEUROLOGIC: CN 2-12 grossly intact, no sensory deficit, normal cognition, normal speech, no tremor PSYCHIATRIC: alert and appropriate. Discharge Data Allergies Allergy/AdvReac Type Severity Reaction Status Date / Time chlorthalidone Allergy Severe Rash Verified 09/10/20 03:00 alendronate sodium AdvReac Intermediate Gastrointestinal Verified 09/10/20 03:00 [From Fosamax] Upset NSAIDS (Non-Steroidal AdvReac Intermediate Hypertensio Verified 09/10/20 03:00 Anti-Inflamma n Consultations 09/18/20 04:42 ED Decision to Admit Stat 09/18/20 10:11 Consult Orthopedic Surgery Routine Procedures Performed Operation Date: 09/19/20 09:35 Actual Procedures p Right Hip Cephalomedullary Nail(Right) - Jayjay Vazquez DO Ordered Studies Laboratory Results WBC 12.01 K/uL (4.8-10.8) H 09/25/20 08:14 RBC 3.39 M/uL (4.2-5.4) L 09/25/20 08:14 Hgb 10.4 g/dL (12.0-16.0) L 09/25/20 08:14 Hct 32.0 % (37-47) L 09/25/20 08:14 MCV 94.4 fL (80-100) 09/25/20 08:14 MCH 30.7 pg (25-34) 09/25/20 08:14 MCHC 32.5 g/dL (32-36) 09/25/20 08:14 RDW Std Deviation 52.7 fL (36.4-46.3) H 09/25/20 08:14 RDW Coeff of Dennis 15.5 % (11.5-14.5) H 09/25/20 08:14 Plt Count 416 K/uL (130-400) H 09/25/20 08:14 MPV 9.3 fL (7.4-10.4) 09/25/20 08:14 Immature Gran % (Auto) 0.9 % 09/22/20 05:43 Neut % (Auto) 66.5 % 09/22/20 05:43 Lymph % (Auto) 23.0 % 09/22/20 05:43 Jerome % (Auto) 8.4 % 09/22/20 05:43 Eos % (Auto) 1.1 % 09/22/20 05:43 Baso % (Auto) 0.1 % 09/22/20 05:43 Neut # (Auto) 7.06 K/uL (1.4-6.5) H 09/22/20 05:43 Lymph # (Auto) 2.45 K/uL (1.2-3.4) 09/22/20 05:43 Jerome # (Auto) 0.89 K/uL (0.11-0.59) H 09/22/20 05:43 Eos # (Auto) 0.12 K/uL (0-0.5) 09/22/20 05:43 Baso # (Auto) 0.01 K/uL (0-0.2) 09/22/20 05:43 Immature Gran # (Auto) 0.10 K/uL (0.00-0.02) H 09/22/20 05:43 Absolute Nucleated RBC 0.02 K/uL (0-0) H 09/23/20 06:41 Nucleated RBC % (auto) 0.2 % 09/23/20 06:41 Sodium 136 mmol/L (136-145) 09/25/20 08:14 Potassium 3.7 mmol/L (3.5-5.1) 09/25/20 08:14 Chloride 104 mmol/L (98-107) 09/25/20 08:14 Carbon Dioxide 26 mmol/L (21-32) 09/25/20 08:14 Anion Gap 6.0 (3-11) 09/25/20 08:14 BUN 15 mg/dl (7-18) 09/25/20 08:14 Creatinine 0.62 mg/dl (0.6-1.2) 09/25/20 08:14 Est Cr Clr Drug Dosing 48.3 ml/min 09/25/20 08:14 Est GFR ( Amer) 93.3 ml/min 09/25/20 08:14 Est GFR (Non-Af Amer) 80.5 ml/min 09/25/20 08:14 BUN/Creatinine Ratio 24.6 (10-20) H 09/25/20 08:14 Glucose 126 mg/dl (70-99) H 09/25/20 08:14 Calcium 8.9 mg/dl (8.5-10.1) 09/25/20 08:14 Phosphorus 2.7 mg/dl (2.5-4.9) 09/25/20 08:14 Magnesium 1.8 mg/dl (1.8-2.4) 09/25/20 08:14 Troponin I 0.018 ng/ml (0-0.045) 09/20/20 07:28 Albumin 2.5 gm/dl (3.4-5.0) L 09/21/20 08:05 25-OH Vitamin D Total 32.2 ng/ml (30-100) 09/24/20 05:56 Specimen Hemolysis 09/18/20 03:30 Urine Color Dark Yellow 09/21/20 09:25 Urine Appearance Clear (Clear) 09/21/20 09:25 Urine pH 5.5 (4.5-7.5) 09/21/20 09:25 Ur Specific [place] 1.017 (1.000-1.030) 09/21/20 09:25 Urine Protein Trace (Negative) H 09/21/20 09:25 Urine Glucose (UA) Negative (Negative) 09/21/20 09:25 Urine Ketones 4+ (Negative) H 09/21/20 09:25 Urine Blood 2+ (Negative) H 09/21/20 09:25 Urine Nitrite Negative (Negative) 09/21/20 09:25 Urine Bilirubin 1+ (Negative) H 09/21/20 09:25 Urine Urobilinogen Negative (Negative) 09/21/20 09:25 Ur Leukocyte Esterase 2+ (Negative) H 09/21/20 09:25 Urine WBC (Auto) >30 /hpf (0-5) H 09/21/20 09:25 Urine RBC (Auto) 5-10 /hpf (0-4) H 09/21/20 09:25 U Hyaline Cast (Auto) 1-5 /lpf (0-5) 09/21/20 09:25 U Epithel Cells (Auto) >30 /lpf (0-5) H 09/21/20 09:25 Urine Bacteria (Auto) Negative (Negative) 09/21/20 09:25 Ur Renal Epithelial Cell Not Reportable 09/21/20 09:25 Urine Mucus Present (None Prsent) A 09/21/20 09:25 COVID-19 Eval Order Covid19 at [facility] 09/18/20 04:45 SARS-CoV-2 (PCR) NEGATIVE (Negative) 09/18/20 04:45 Impressions Chest X-Ray 09/18/20 03:34 XR chest 1V portable CLINICAL HISTORY: Trauma. Weakness. COMPARISON STUDY: 09/10/2020 FINDINGS: The patient remains hyperinflated. There is no pneumothorax. There is no focal pulmonary consolidation. There is no overt failure. There are no pleural effusions.[ IMPRESSION: Hyperinflation. No acute findings. ACT 112: Negative or not required by law. Electronically signed by: Jared Randhawa M.D. 09/18/2020 7:22 AM Femur X-Ray 09/18/20 03:34 XR femur RT 2V routine CLINICAL HISTORY: right distal thigh pain COMPARISON: None. DISCUSSION: There is acute intertrochanteric right hip fracture. No additional femoral fractures are visualized. There are degenerative changes within the with chondrocalcinosis. There is distal quadriceps calcification. IMPRESSION: Intertrochanteric right hip fracture. ACT 112: Negative or not required by law. Electronically signed by: Jared Randhawa M.D. 09/18/2020 7:20 AM Pelvis X-Ray 09/18/20 03:34 XR pelvis 1-2V routine CLINICAL HISTORY: Pelvic pain status post trauma COMPARISON: None. DISCUSSION: The bones are osteopenic. There is an acute intertrochanteric right hip fracture. There are no musculotendinous calcifications involving the insertions at the level of the inferior ischial spines. IMPRESSION: Acute intertrochanteric right hip fracture. ACT 112: Negative or not required by law. Electronically signed by: Jared Randhawa M.D. 09/18/2020 7:21 AM Hip X-Ray 09/19/20 15:35 RIGHT HIP 2 VIEWS CLINICAL HISTORY: Postoperative examination. FINDINGS: AP and crosstable lateral views of the right hip are compared to study dated 09/18/2020. Intertrochanteric and intramedullary nails have been placed transfixing an intertrochanteric fracture of the right femur. Near-anatomic alignment is restored. A single cortical screw transfixes the distal end of the intramedullary nail. There is medial displacement of the lesser trochanter. No new fracture is seen. The visualized right hemipelvis appears intact. Moderate arthritic change and degenerative joint space narrowing is seen in the right hip. Skin clips, subcutaneous gas, and soft tissue edema around the right hip are expected postoperative findings. IMPRESSION: Expected postoperative findings status post open reduction and internal fixation of a right proximal femoral fracture. See above. Electronically signed by: Yusuf Cisneros M.D. 09/19/2020 3:[address] 09/20/20 10:52 CT head/brain wo con CLINICAL HISTORY: Subarachnoid hemorrhage. Confusion. COMPARISON STUDY: 09/18/2020 TECHNIQUE: Axial CT of the brain is performed from the vertex to the skull base. IV contrast was not administered for this examination. A dose lowering technique was utilized adhering to the principles of ALARA. CT DOSE: 788.63 mGycm FINDINGS: There is trace residual subarachnoid hemorrhage within the left convexity. There is no evidence of intraparenchymal hemorrhage. No intracranial masses are visualized. There is no midline shift. There are persistent bilateral extra- axial low-density fluid collections measuring 7 mm in thickness. These are consistent with subdural hygromas versus subacute subdural hematomas. There are patchy white matter hypodensities likely on a small vessel basis. 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 There is no evidence of acute sinusitis IMPRESSION: 1. Trace residual subarachnoid hemorrhage within the left convexity 2. No evidence of intraparenchymal hemorrhage 3. Persistent bilateral extra-axial low-density fluid collections measuring 7 mm in thickness. ACT 112: Negative or not required by law. Electronically signed by: Jared Randhawa M.D. 09/20/2020 12:15 PM Hospital Course (1) Closed intertrochanteric fracture of right hip: s/p R hip surgery Toe touch weight bearing on the RLE Cont pain control No chemoprophylaxis in light of recent SAH. Transfer to rehab (2) Postoperative anemia: There is a fair amount of ecchymosis around the right incision site that is improving. Would recommend repeat H/H in one week. H/H already improving. (3) Postoperative delirium: Resolved. She had a recent hospitalization for fall SAH, which appears to be resolving with no worsening of hemorrhage on repeat CT head. Cont supportive care. Tylenol PRN (4) Fall: with R hip fracture, s/p surgery above. Rehab recommended as a transition to home. (5) Subarachnoid hemorrhage: known recent SAH, admission CT discussed with neurosurgeon on admission. Improved scan. Cont to avoid blood thinners. She has completed course of anti- seizure prophylaxis medication. (6) HTN (hypertension): elevated persistently, cont amlodipine and increased losartan to 50mg daily. BP improved. (7) Hypophosphatemia: Repleted with intravenous supplementation. Total Time Total Time Spent Total Time Spent (In Minutes): 60 Discharge Plan Discharge Items Patient Disposition: Transfer [facility] Reason For Visit: FALL Discharge Diagnosis: Closed right hip fracture s/p Right hip surgery on 09/[address] Jayjay Nolan Post op Delirium-resolved Post operative anemia Fall h/o SAH Activity: As commented below Activity Comment: TTWB RLE Non-emergency contact: Primary Care Provider Call non-emergency contact if: you have any medication questions, your symptoms worsen, your pain is not controlled, your pain is worsening, your pain is unusual for you, your pain is concerning for you, you have a fever, your wound has increased redness, your wound has increased drainage and your wound pain has increased Follow-up/Referrals: Hoang,Sallie M., DO [Primary Care Provider] - Diet: Regular Addtl Attending Provider Instructions: Please follow all post operative instructions as outlined by your orthopedic team below. It is recommended that you have a repeat H/H in one week. It is recommended that you see your primary care provider within one week of discharge to ensure that you are still doing well after leaving the hospital. It was a pleasure taking care of you! Please call if you have any questions or problems. You can reach a [facility] hospitalist on duty at [facility] 24 hours a day by calling [phone]. Take care of yourself. Kayley Gregorio, DO [facility] Hospitalist Addtl Research Dietitian Provider Instructions: [facility] DISCHARGE INSTRUCTIONS: HIP FRACTURE SELF CARE INSTRUCTIONS: A. You are to ambulate with a walker or crutches for approximately 6 weeks. B. You are TOE TOUCH WEIGHT BEARING on your operative lower extremity for at least 6 weeks. C. Wear low heeled shoes with non-slip soles D. Be sure that your floors are free of things that could trip you throw rugs, electrical cords, and small objects. Avoid wet and waxed floors, especially with crutches/walker/cane. E. Try to walk several times a day with rest periods between. F. You may shower 48 hours after surgery and get the incision area wet, but DO NOT soak or submerge incision area in water. (No baths, swimming pools, hot tubs) G. You may have a large, band-aid like dressing over your incision (Aquacel). This will remain on your incision for 7 days, and then can be removed. You CAN shower with this on. If incision is leaking through the dressing, please call the office . H. Do NOT apply soap or any ointment/lotions directly over incision. I. You may use ice as needed to operative site. SPECIAL CARE INSTRUCTIONS: VERY IMPORTANT TO READ AND REVIEW A. You may be at risk for phlebitis or blood clots. a. Wear surgical stockings (MARIAH hose) for 2 weeks after surgery to improve circulation and reduce swelling. B. There are a few signs you need to watch for after you are home. Call [facility] at [phone] if you experience any of the following: a. If you have a temperature of 101 degrees or higher. b. Sudden increase in pain in your hip not relieved by rest or pain medication. c. Any fluid or drainage from the incision; redness of the incision. d. Shortness of breath or chest pain. . C. Call your physician if: a. Temperature is greater than 101 degrees (F). b. Pain is not relieved by prescribed pain medications. c. Increase drainage or redness from incision. d. Unanswered questions or concerns. D. Pain Medication: a. You will be prescribed pain medication upon discharge that should last till your first post-operative appointment. b. If you experience nausea and/or skin rash, discontinue this medication and contact our office for an alternative medicati on. c. Caution- narcotic pain medication can cause constipation. FOLLOW UP VISIT: Please call [facility] at [phone] to schedule a follow up appointment 10-14 days from the date of your surgery date. Pending Studies at Discharge: No Stand-Alone Forms: [facility] Skilled Items Patient informed of condition?: Yes DNR: Yes Discharge Level of Care: Skilled Communicable Disease: No Discharge Prognosis: Stable Lines: None Urinary Catheter: No Medications and DC Order Prescriptions: Continued multivitamin Tablet 1 tab PO DAILY RF: 0 levothyroxine 25 mcg tablet 25 mcg PO DAILY RF: 0 metoprolol succinate 25 mg Tablet Extended Release 24 Hr 25 mg PO DAILY Qty: 30 RF: 1 losartan 25 mg tablet 25 mg PO DAILY RF: 0 pravastatin 20 mg tablet 20 mg PO DAILY RF: 0 Tubersol 5 tub. unit /0.1 mL Solution 5 tb unit INTRADERMAL DIRECTED RF: 0 sertraline 25 mg Tablet 25 mg PO DAILY RF: 0 furosemide 20 mg Tablet 20 mg PO Q OTHER DAY RF: 0 amlodipine 10 mg tablet 10 mg PO DAILY RF: 0 Discontinued levetiracetam 500 mg Tablet 500 mg PO BID RF: 0 enoxaparin 30 mg/0.3 mL Syringe 30 mg SUBCUT Q12H RF: 0 Discharge Orders: Discharge Order (Routine); Ordered 09/25/20 Ordered By: Kayley Gregorio Admission Data Admit Date/Time: 09/18/20 06:31 Attending Provider: Kayley Gregorio Admit Provider: Baldemar Cronin Primary Care Provider: Sallie Hoang Other Providers: Isabel Bonilla ; Baldemar Cronin ; Porfirio Storm Other Interventions: Discharge Summary Assessment (RN) Last Done: 09/25/20 14:30
== END 2020-09-25 14:45 | DRG 481 ==
LOC: ED 03:23 → SUATTDRO 06:31 → 2W 06:31

== ENCOUNTER 2020-11-07 13:55 | Inpatient (IN) ==
--- NOTE | 2020-11-07 15:23 | CT Scan Report ---
CT head/brain wo con CLINICAL HISTORY: 89 years-old Female with weakness. Acute weakness TECHNIQUE: Multiple axial CT images of the head were obtained without contrast. A dose lowering tech nique was utilized adhering to the principles of ALARA. 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 No midline shift, hydrocephalus or acute intraparenchym al hemorrhage identified. No acute territorial infarct or intracranial mass. White matter hypodensiti es suggestive of chronic microvascular ischemic disease. The calvarium is intact. Prior bilateral lens repair. The paranasal sinuses, mastoid air cells, and m iddle ear cavities are clear. IMPRESSION: 1. 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 2. No midline shift or hydrocephalus. Findings were discussed with Dr. Miller on 11/07/2020 3:18 PM ACT 112: Negative or not required by law. The above report was generated using voice recognition software. It may contain grammatical, syntax o r spelling errors. Electronically signed by: Malcom Avina M.D. 11/07/2020 3:22 PM
[2020-11-07 15:35] LABS: Alanine Aminotransferase 18 U/L (12-78); Albumin Level 3.4 gm/dl (3.4-5.0); Aspartate Aminotransferase 18 U/L (15-37); Blood Urea Nitrogen 20 mg/dl (7-18); Calcium 9.1 mg/dl (8.5-10.1); Carbon Dioxide 26 mmol/L (21-32); Chloride 108 mmol/L (98-107); Creatinine Clr Calc Pharmacy 39.8 ml/min; Est GFR (African American) 92.3 ml/min; Est GFR (Non-African American) 79.7 ml/min; Glucose 93 mg/dl (70-99); Magnesium 2.1 mg/dl (1.8-2.4); Sodium 138 mmol/L (136-145)
[2020-11-07 15:44] LABS: Basophils # (auto) 0.04 K/uL (0-0.2); Basophils % (auto) 0.4 %; Eosinophils # (auto) 0.34 K/uL (0-0.5); Hematocrit (blood only) 38.5 % (37-47); Hemoglobin 12.4 g/dL (12.0-16.0); Immature Granulocytes # (auto) 0.01 K/uL (0.00-0.02); Immature Granulocytes % (auto) 0.1 %; Lymphocytes # (auto) 4.78 K/uL (1.2-3.4); Lymphocytes % (auto) 42.6 %; Mean Corpuscular Hemoglobin 31.9 pg (25-34); Mean Corpuscular Hgb Conc 32.2 g/dL (32-36); Mean Platelet Volume 10.4 fL (7.4-10.4); Monocytes # (auto) 0.85 K/uL (0.11-0.59); Monocytes % (auto) 7.6 %; Neutrophils % (auto) 46.3 %; Platelet Count 272 K/uL (130-400); RDW Coefficient of Variation 15.5 % (11.5-14.5); RDW Standard Deviation 56.6 fL (36.4-46.3); Red Blood Count 3.89 M/uL (4.2-5.4); White Blood Count 11.22 K/uL (4.8-10.8)
[2020-11-07 15:46] LABS: Albumin Globulin Ratio 0.9 (0.9-2); Alkaline Phosphatase 159 U/L (45-117); Bilirubin,Total 0.4 mg/dl (0.2-1); Total Protein 7.4 gm/dl (6.4-8.2); Troponin I < 0.015 ng/ml (0-0.045)
--- NOTE | 2020-11-07 16:46 | Emergency Department Note ---
Impression & Plan Acute on chronic intracranial subdural hematoma, UTI (urinary tract infection) ED Provider Note INFORMANT: Patient and daughter ED PROVIDER(S): Marty Miller MD CHIEF COMPLAINT: Weakness PLAN: Disposition: Admitted pending transfer Condition: Good Outpatient prescription management: none Referral: None MEDICAL DECISION MAKING: Patient presents emerged department complaining of weakness. She just finished a course of antibiotic for UTI. The patient also has a history of subdural hematoma. She was evaluated in the ER. She had a subtle leukocytosis on CBC but her chemistry panel was otherwise unremarkable. Urinalysis did raise concern for infection. The patient was given IV Rocephin. She had a CT scan performed and unfortunately shows acute on chronic subdural hematoma. Currently the patient is neurologically intact and alert and oriented. She is doing well overall however this is very concerning. Neurosurgical services are not available here. I did consult with Amparo Mendez. I discussed the case with Dr. Hurtado of neurology, Dr. Ramirez of neurosurgery, and internal medicine. The patient was accepted in transfer to the internal medicine service however the accepting physician has yet to be determined as a bed is not available. The patient was monitored in the emergency department. She did very well. After several hours of monitoring we contacted [facility] again and the transfer center stated that there was not going to be a bed available this evening due to patient volume at their facility. At this point the patient is hemodynamically stable. I did discuss the case with Dr. coleman of the [facility] hospitalist service. Transfer consent and paperwork was completed. He will admit the patient and monitor her until a bed is available. We did discuss monitoring to include a repeat head CT. If the patient's conditions worsens the will contact jessica Mendez. [facility] also asked prior to transfer that the covering physician call and talk with the accepting physician that will be determined at the time of bed availability. Triage Nursing notes reviewed and agree them. Vital Signs: reviewed and remarkable for no significant abnormalities Differential diagnosis: Infection, dehydration, metabolic abnormality, hypo/hyperglycemia, electrolyte disturbance, anemia, hypoxia, cardiac sources, intracerebral event, toxicologic, neurologic, as well as other pathologies. Diagnostics interpreted by me: ECG: Twelve-lead ECG reveals normal sinus rhythm at 74 bpm. No evidence of ST elevation or depression. No PACs or PVCs. Cardiac Monitoring: Cardiac monitoring ordered by me: The patient was placed on continuous cardiac monitoring and observed. It revealed a normal sinus rhythm at 75 beats per minute without ectopy or evidence of dysrhythmia. Imaging studies: CT scan as noted above. Acute on chronic subdural hematoma. I refer you to the EMR for further details. HPI: The patient is a 89 year old female who presents to the Emergency Room with complaints of weakness. This started yesterday and is more pronounced today. T he patient also notes the following associated symptoms, fatigue. The patient has taken no medications for relieving factors. Current pain is rated as 0/10. Patient had a subdural and subarachnoid hemorrhage over the summer, about 2 months ago and was treated at [facility]. She is not on any blood thinners. Patient and family deny any new trauma or fall. She did have a CT scan performed after her initial injury and it showed that she had hygromas and the subdurals were resolving. Pt denies LOC, headache, fevers, chills, diaphoresis, visual changes, neck pain, chest pain, breathing difficulties, nausea, vomiting, abdominal pain, back pain, melena, hematochezia, urinary symptoms, numbness, lymphadenopathy, rash, or other complaints. ROS: See above HPI for pertinent positives & negatives. A total of 10 systems reviewed and were otherwise negative. PAST MEDICAL HISTORY:See Below , subdural hematoma, hypertension PAST SURGICAL HISTORY:See Below, FAMILY HISTORY:See Below SOCIAL HISTORY:See Below, Lives with family HOME MEDICATIONS:See Below ALLERGIES:See Below VITALS:See Below PHYSICAL EXAMINATION: GENERAL: Awake, alert, age appropriate-appearing, in no distress HENT: Normocephalic, atraumatic. Oropharynx unremarkable. EYES: Normal conjunctiva. Sclera non-icteric. NECK: Inspection normal. Non-tender. Supple. No nuchal rigidity. FROM. No masses. RESPIRATORY: Clear to auscultation. No wheezes. No rales. Normal respiratory effort. CARDIAC: Normal rate. Normal rhythm. No murmurs. No rubs. Extremities warm and well perfused. Pulses equal. No JVD. GI: Soft, non-distended. No tenderness to palpation. No rebound or guarding. No masses. RECTAL: Deferred. MUSCULOSKELETAL: Atraumatic. Chest examination reveals no tenderness. The back is symmetrical on inspection without obvious abnormality. There is no CVA tenderness to palpation. No joint edema. LOWER EXTREMITIES: Calves are equal size bilaterally and non-tender. No edema. No discoloration. NEURO: Relatively normal sensorium. No focal sensory or motor deficits noted. SKIN: No rash or jaundice noted. CRITICAL CARE: I have personally spent greater than 40 minutes of critical care time in the direct management of this patient. This includes bedside care, interpretation of diagnostic studies, and testing, discussion with consultants, patient, and family members, and other required patient management activities. These minutes are in excess of all separately billable procedures. Marty Miller MD Past Med/Surg History Medical History (Updated 11/07/20 @ 21:55 by Marty iMller MD) History of nephrolithiasis HLD (hyperlipidemia) HTN (hypertension) Hypothyroidism Osteoporosis Surgical History (Updated 09/19/20 @ 13:00 by Lester Shipman DO) History of cataract extraction History of cystoscopy Family History Father Myocardial infarction, Onset Age: 69 Mother Pancreatic cancer, Onset Age: 69 Social History Smoking Status: Never smoker Second Hand Exposure: No (N/a); Hx Alcohol Use: No Hx Substance Use: No Preferred Language: Djiboutian Communication Ability: Effective Consultant Dietitian Required: Yes Beliefs That Will Affect Care: Adventist Adventist Beliefs: Shinto- First adventist of karly marital status: / Current Living Situation: Family Current Living Situation Comment: Hetal's sister/[id number]. Feels Safe at Home: Yes Assistive Devices: Glasses and Walker Allergies Allergies Allergy/AdvReac Type Severity Reaction Status Date / Time chlorthalidone Allergy Severe Rash Verified 11/07/20 16:09 alendronate sodium AdvReac Intermediate Gastrointestinal Verified 11/07/20 16:09 [From Fosamax] Upset NSAIDS (Non-Steroidal AdvReac Intermediate Hypertensio Verified 11/07/20 16:09 Anti-Inflamma n Home Meds Home Medications Medication Instructions Recorded Confirmed levothyroxine 25 mcg tablet 25 mcg PO DAILY 09/17/18 11/07/20 multivitamin 1 tab PO DAILY 09/17/18 11/07/20 losartan 25 mg tablet 25 mg PO DAILY 09/10/20 11/07/20 pravastatin 20 mg tablet 20 mg PO DAILY 09/10/20 11/07/20 amlodipine 10 mg tablet 10 mg PO DAILY 09/18/20 11/07/20 furosemide 20 mg tablet 20 mg PO Q OTHER DAY 09/18/20 11/07/20 sertraline 25 mg tablet 25 mg PO DAILY 09/18/20 11/07/20 ascorbic acid (vitamin C) 500 mg 500 mg PO DAILY 11/07/20 11/07/20 tablet,extended release (Vitamin C ER) Previous Rx's Medication Instructions Recorded metoprolol succinate 25 mg 25 mg PO DAILY #30 tab 09/19/18 tablet,extended release 24 hr Results & Data (ED) Vital Signs Vital Signs - 24 hr 11/07/20 14:30 11/07/20 15:00 11/07/20 15:08 Temperature 36.5 C Temperature Source Oral Pulse Rate 80 76 Pulse Rate from SpO2 Sensor 76 77 Respiratory Rate 14 17 16 Respiratory Depth Normal Blood Pressure 148/51 H 156/61 H 156/61 H Blood Pressure Mean 83 92 92 Blood Pressure Position Sitting Pulse Oximetry 97 97 98 Oxygen Delivery Method Room Air Sepsis Recent Fever Within 48 Hours No Sepsis New/Unexplained Change in Mental Status N/A Sepsis Action Taken by Nursing No Action Required 11/07/20 15:14 11/07/20 15:15 11/07/20 15:30 Temperature Temperature Source Pulse Rate 76 Pulse Rate from SpO2 Sensor 76 Respiratory Rate 17 Respiratory Depth Blood Pressure 144/61 H Blood Pressure Mean 88 Blood Pressure Position Pulse Oximetry 97 97 Oxygen Delivery Method Room Air Room Air Sepsis Recent Fever Within 48 Hours Sepsis New/Unexplained Change in Mental Status Sepsis Action Taken by Nursing 11/07/20 17:28 11/07/20 17:30 11/07/20 18:00 Temperature Temperature Source Pulse Rate 78 83 Pulse Rate from SpO2 Sensor 80 76 81 Respiratory Rate 13 16 Respiratory Depth Blood Pressure 140/70 145/65 H Blood Pressure Mean 93 91 Blood Pressure Position Pulse Oximetry 97 97 97 Oxygen Delivery Method Sepsis Recent Fever Within 48 Hours Sepsis New/Unexplained Change in Mental Status Sepsis Action Taken by Nursing 11/07/20 18:30 11/07/20 19:00 11/07/20 19:30 Temperature Temperature Source Pulse Rate 79 80 80 Pulse Rate from SpO2 Sensor Respiratory Rate 12 21 14 Respiratory Depth Blood Pressure 132/66 145/67 H 134/66 Blood Pressure Mean 88 93 88 Blood Pressure Position Pulse Oximetry 95 Oxygen Delivery Method Sepsis Recent Fever Within 48 Hours Sepsis New/Unexplained Change in Mental Status Sepsis Action Taken by Nursing 11/07/20 20:00 11/07/20 20:30 11/07/20 21:00 Temperature Temperature Source Pulse Rate 72 80 70 Pulse Rate from SpO2 Sensor Respiratory Rate 16 16 17 Respiratory Depth Blood Pressure 135/52 L 140/82 133/53 L Blood Pressure Mean 79 101 79 Blood Pressure Position Pulse Oximetry 96 94 Oxygen Delivery Method Sepsis Recent Fever Within 48 Hours Sepsis New/Unexplained Change in Mental Status Sepsis Action Taken by Nursing 11/07/20 21:31 Temperature Temperature Source Pulse Rate 75 Pulse Rate from SpO2 Sensor Respiratory Rate 19 Respiratory Depth Blood Pressure 155/61 H Blood Pressure Mean 92 Blood Pressure Position Pulse Oximetry Oxygen Delivery Method Sepsis Recent Fever Within 48 Hours Sepsis New/Unexplained Change in Mental Status Sepsis Action Taken by Nursing Laboratory Data Result diagrams: 11/07/20 14:59 11/07/20 14:59 Lab Results 11/07/20 11/07/20 11/07/20 Range/Units 14:59 14:59 16:28 WBC 11.22 H (4.8-10.8) K/uL RBC 3.89 L (4.2-5.4) M/uL Hgb 12.4 (12.0-16.0) g/dL Hct 38.5 (37-47) % MCV 99.0 (80-100) fL MCH 31.9 (25-34) pg MCHC 32.2 (32-36) g/dL RDW Std Deviation 56.6 H (36.4-46.3) fL RDW Coeff of Dennis 15.5 H (11.5-14.5) % Plt Count 272 (130-400) K/uL MPV 10.4 (7.4-10.4) fL Immature Gran % (Auto) 0.1 % Neut % (Auto) 46.3 % Lymph % (Auto) 42.6 % Summers % (Auto) 7.6 % Eos % (Auto) 3.0 % Baso % (Auto) 0.4 % Neut # (Auto) 5.20 (1.4-6.5) K/uL Lymph # (Auto) 4.78 H (1.2-3.4) K/uL Summers # (Auto) 0.85 H (0.11-0.59) K/uL Eos # (Auto) 0.34 (0-0.5) K/uL Baso # (Auto) 0.04 (0-0.2) K/uL Immature Gran # (Auto) 0.01 (0.00-0.02) K/uL Sodium 138 (136-145) mmol/L Potassium 4.0 (3.5-5.1) mmol/L Chloride 108 H (98-107) mmol/L Carbon Dioxide 26 (21-32) mmol/L Anion Gap 4.0 (3-11) BUN 20 H (7-18) mg/dl Creatinine 0.64 (0.6-1.2) mg/dl Est Cr Clr Drug Dosing 39.8 ml/min Est GFR ( Amer) 92.3 ml/min Est GFR (Non-Af Amer) 79.7 ml/min BUN/Creatinine Ratio 32.0 H (10-20) Glucose 93 (70-99) mg/dl Calcium 9.1 (8.5-10.1) mg/dl Magnesium 2.1 (1.8-2.4) mg/dl Total Bilirubin 0.4 (0.2-1) mg/dl AST 18 (15-37) U/L ALT 18 (12-78) U/L Alkaline Phosphatase 159 H (45-117) U/L Troponin I < 0.015 (0-0.045) ng/ml Total Protein 7.4 (6.4-8.2) gm/dl Albumin 3.4 (3.4-5.0) gm/dl Globulin 4.0 (2.5-4.0) gm/dl Albumin/Globulin Ratio 0.9 (0.9-2) TSH 1.890 (0.300-4.500) uIu/ml Urine Color Urine Appearance (Clear) Urine pH (4.5-7.5) Ur Specific Stanton (1.000-1.030) Urine Protein (Negative) Urine Glucose (UA) (Negative) Urine Ketones (Negative) Urine Blood (Negative) Urine Nitrite (Negative) Urine Bilirubin (Negative) Urine Urobilinogen (Negative) Ur Leukocyte Esterase (Negative) Urine WBC (Auto) (0-5) /hpf Urine RBC (Auto) (0-4) /hpf U Hyaline Cast (Auto) (0-5) /lpf U Epithel Cells (Auto) (0-5) /lpf Urine Bacteria (Auto) (Negative) COVID-19 Eval Order Covid19 IDNow [email or web address] SARS-CoV-2, RNA, NAAT (NEGATIVE) 11/07/20 11/07/20 Range/Units 16:28 17:30 WBC (4.8-10.8) K/uL RBC (4.2-5.4) M/uL Hgb (12.0-16.0) g/dL Hct (37-47) % MCV (80-100) fL MCH (25-34) pg MCHC (32-36) g/dL RDW Std Deviation (36.4-46.3) fL RDW Coeff of Dennis (11.5-14.5) % Plt Count (130-400) K/uL MPV (7.4-10.4) fL Immature Gran % (Auto) % Neut % (Auto) % Lymph % (Auto) % Summers % (Auto) % Eos % (Auto) % Baso % (Auto) % Neut # (Auto) (1.4-6.5) K/uL Lymph # (Auto) (1.2-3.4) K/uL Summers # (Auto) (0.11-0.59) K/uL Eos # (Auto) (0-0.5) K/uL Baso # (Auto) (0-0.2) K/uL Immature Gran # (Auto) (0.00-0.02) K/uL Sodium (136-145) mmol/L Potassium (3.5-5.1) mmol/L Chloride (98-107) mmol/L Carbon Dioxide (21-32) mmol/L Anion Gap (3-11) BUN (7-18) mg/dl Creatinine (0.6-1.2) mg/dl Est Cr Clr Drug Dosing ml/min Est GFR ( Amer) ml/min Est GFR (Non-Af Amer) ml/min BUN/Creatinine Ratio (10-20) Glucose (70-99) mg/dl Calcium (8.5-10.1) mg/dl Magnesium (1.8-2.4) mg/dl Total Bilirubin (0.2-1) mg/dl AST (15-37) U/L ALT (12-78) U/L Alkaline Phosphatase (45-117) U/L Troponin I (0-0.045) ng/ml Total Protein (6.4-8.2) gm/dl Albumin (3.4-5.0) gm/dl Globulin (2.5-4.0) gm/dl Albumin/Globulin Ratio (0.9-2) TSH (0.300-4.500) uIu/ml Urine Color Yellow Urine Appearance Clear (Clear) Urine pH 7.0 (4.5-7.5) Ur Specific Stanton 1.013 (1.000-1.030) Urine Protein Negative (Negative) Urine Glucose (UA) Negative (Negative) Urine Ketones Trace H (Negative) Urine Blood Negative (Negative) Urine Nitrite Negative (Negative) Urine Bilirubin Negative (Negative) Urine Urobilinogen Negative (Negative) Ur Leukocyte Esterase 3+ H (Negative) Urine WBC (Auto) >30 H (0-5) /hpf Urine RBC (Auto) 0-4 (0-4) /hpf U Hyaline Cast (Auto) 1-5 (0-5) /lpf U Epithel Cells (Auto) >30 H (0-5) /lpf Urine Bacteria (Auto) Negative (Negative) COVID-19 Eval Order SARS-CoV-2, RNA, NAAT NEGATIVE (NEGATIVE) Administered Medications Discontinued Medications Ceftriaxone Sodium (Rocephin) 1,000 mg in 50 mls @ 100 mls/hr IV NOW STA Stop: 11/07/20 19:03 Last Infusion: 11/07/20 20:37 Dose: 0 mls/hr Documented by: [id number] Admin: 11/07/20 19:11 Dose: 100 mls/hr Documented by: [id number] Imaging Data Radiologist's Impression: Chest X-Ray 11/07/20 14:46 XR chest 1V portable CLINICAL HISTORY: weakness COMPARISON STUDY: Chest radiograph September 18, 2020. FINDINGS: Lung volumes are normal. Biapical opacities are unchanged and favor scarring. There is no pneumothorax or pleural effusion. Cardiac size is normal. Mediastinal contours are normal. There is no evidence for pulmonary edema. IMPRESSION: No acute cardiopulmonary findings. No change in appearance of the chest. ACT 112: Negative or not required by law. Electronically signed by: Devon Miranda M.D. 11/07/2020 5:[address] 11/07/20 14:46 CT head/brain wo con CLINICAL HISTORY: 89 years-old Female with weakness. Acute weakness TECHNIQUE: Multiple axial CT images of the head were obtained without contrast. A dose lowering technique was utilized adhering to the principles of ALARA. 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 No midline shift, hydrocephalus or acute intraparenchymal hemorrhage identified. No acute territorial infarct or intracranial mass. White matter hypodensities suggestive of chronic microvascular ischemic disease. The calvarium is intact. Prior bilateral lens repair. The paranasal sinuses, mastoid air cells, and middle ear cavities are clear. IMPRESSION: 1. 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 2. No midline shift or hydrocephalus. Findings were discussed with Dr. Miller on 11/07/2020 3:18 PM ACT 112: Negative or not required by law. The above report was generated using voice recognition software. It may contain grammatical, syntax or spelling errors. Electronically signed by: Malcom Avina M.D. 11/07/2020 3:22 PM Discharge Plan Visit Data Chief Complaint: Weakness ED Provider: Marty Miller Discharge Problem: Acute on chronic intracranial subdural hematoma, UTI (urinary tract infection) Forms Stand Alone Forms: [facility] Prescriptions Prescriptions: No Action multivitamin Tablet 1 tab PO DAILY RF: 0 levothyroxine 25 mcg tablet 25 mcg PO DAILY RF: 0 metoprolol succinate 25 mg Tablet Extended Release 24 Hr 25 mg PO DAILY Qty: 30 RF: 1 losartan 25 mg tablet 25 mg PO DAILY RF: 0 pravastatin 20 mg tablet 20 mg PO DAILY RF: 0 sertraline 25 mg Tablet 25 mg PO DAILY RF: 0 furosemide 20 mg Tablet 20 mg PO Q OTHER DAY RF: 0 amlodipine 10 mg tablet 10 mg PO DAILY RF: 0 ascorbic acid (vitamin C) [Vitamin C] 500 mg Tablet Extended Release 500 mg PO DAILY RF: 0 Referrals Referrals: Sallie Haong, [Primary Care Provider] -
--- NOTE | 2020-11-07 17:27 | XRay Report ---
XR chest 1V portable CLINICAL HISTORY: weakness COMPARISON STUDY: Chest radiograph September 18, 2020. FINDINGS: Lung volumes are normal. Biapical opacities are unchanged and favor scarring. There is no p neumothorax or pleural effusion. Cardiac size is normal. Mediastinal contours are normal. There is no evidence for pulmonary edema. IMPRESSION: No acute cardiopulmonary findings. No change in appearance of the chest. ACT 112: Negative or not required by law. Electronically signed by: Devon Miranda M.D. 11/07/2020 5:25 PM
[2020-11-07 17:47] LABS: Appearance Urine Clear (Clear); Bacteria Urine Automated Negative (Negative); Bilirubin Urine Negative (Negative); Blood Urine Negative (Negative); Color Urine Yellow; Epithelial Cell Urine Auto >30 /lpf (0-5); Glucose Urine UA Negative (Negative); Ketones Urine Trace (Negative); Leukocyte Esterase Urine 3+ (Negative); Nitrite Urine Negative (Negative); Protein Urine Negative (Negative); RBC Urine Automated 0-4 /hpf (0-4); Specific Gravity Urine 1.013 (1.000-1.030); Urobilinogen Urine Negative (Negative); WBC Urine Automated >30 /hpf (0-5)
[2020-11-07] MEDS ORDERED: cefTRIAXone SODIUM 1,000 MG/50 ML BAG IV STA (18:34)
--- NOTE | 2020-11-07 18:45 | Electrocardiogram Report ---
Test Reason : Blood Pressure : / mmHG Vent. Rate : 079 BPM Atrial Rate : 079 BPM P-R Int : 198 ms QRS Dur : 072 ms QT Int : 392 ms P-R-T Axes : 083 034 083 degrees QTc Int : 449 ms Normal sinus rhythm When compared with ECG of 20-SEP-2020 04:43, ST elevation now present in Inferior leads Non-specific change in ST segment in Lateral leads T wave inversion no longer evident in Inferior leads T wave inversion no longer evident in Lateral leads Confirmed by Zane Nelson ([id number]) on 11/07/2020 6:44:47 PM Referred By: REFERRED SELF Confirmed By:Neo Nelson
[2020-11-07] MEDS ORDERED: ACETAMINOPHEN 325 MG TAB PO PRN (22:23)
[2020-11-07] MEDS ORDERED: NITROGLYCERIN SL 0.4 MG/TAB TAB SL PRN (22:23)
[2020-11-07] MEDS ORDERED: ONDANSETRON INJ 2 MG/ML 2 ML VIAL IV PRN (22:23)
[2020-11-07] MEDS ORDERED: POLYETHYLENE (MIRALAX) 17 GM PACK PO PRN (22:23)
[2020-11-07] MEDS: SODIUM CHLORIDE 0.9% 1000ML 1,000 ML IV SCH (23:00)
--- NOTE | 2020-11-07 23:11 | History and Physical Report ---
DATE OF ADMISSION: 11/07/2020. CHIEF COMPLAINT: Weakness, subdural hematoma. HISTORY OF PRESENT ILLNESS: This is an 89-year-old female with past medical history significant for hyperlipidemia, subclinical hypothyroidism, history of mitral valve prolapse, hypertension, history of pericardial effusion, senile osteoporosis, history of right hip fracture, delirium, history of generalized anxiety disorder, and history of fall at home. The patient had a fall at home in August and she was found to have subdural hematomas and she was transferred to [facility] . She was seen by neurosurgery and trauma surgery, was treated with Keppra, and also she had followup CAT scan that showed improving . Initial fall was on 09/10/2020 for subdural hematoma. She had a fall again on 09/18/2020 and had a right hip fracture and she is status post right hip surgery and did fine and got discharged to rehabilitation. Then after rehab, she went home. She lives with her daughter and her granddaughter and son-in-law. Ambulates with a walker and as per daughter again on 10/13/2020, she again fell and hit the right elbow and she was seen by orthopedics and she was managed with pain medications. She was doing fine. She seemed okay, but yesterday morning she was feeling weak and tired and today she could not ambulate because of weakness, that is the reason the daughter brought her back to the hospital today and imaging studies are showing bilateral subdural ahetu-go-zizaxtr hematomas increasing up to 1.2 cm on the right and 1.1 cm on the left, which were previously 7 mm. ER called [facility] and the patient was accepted in transfer, but because there was no bed available we are admitting to the hospital and to transfer to [facility] whenever the bed is available. She was also found to have UTI and ER gave a dose of Rocephin. Currently, resting comfortably and hemodynamically stable. Denies any headache, denies any blurred visions or double visions, no earache, no runny nose, no sore throat. She says she coughs once in a while. Appetite is okay. Once in a while, she says she chokes, but she also swallows okay. No chest pain, no shortness of breath, no nausea, no abdominal pain, no diarrhea or constipation. No swelling in the legs. ALLERGIES: CHLORTHALIDONE, FOSAMAX, NSAIDs. PAST MEDICAL HISTORY: As mentioned above. PAST SURGICAL HISTORY: Cystourethroscopy with lithotripsy, dilatation and curettage, bilateral cataract surgery, right hip surgery. MEDICATIONS: The patient is currently on amlodipine 10 mg p.o. daily, vitamin C 500 mg p.o. daily, Lasix 20 mg p.o. every other day, levothyroxine 25 mcg p.o. daily, losartan 25 mg p.o. daily, metoprolol succinate 25 mg p.o. daily, multivitamin 1 tablet p.o. daily, pravastatin 20 mg p.o. daily, sertraline 25 mg p.o. daily. FAMILY HISTORY: Significant for mother had pancreatic cancer, father had [place]. SOCIAL HISTORY: , currently lives with her daughter and her family. No smoking, no alcohol, no drug use. REVIEW OF SYSTEMS: As per HPI. Rest of the review of systems is negative. PHYSICAL EXAMINATION: GENERAL: The patient is old and frail, not in acute distress. VITAL SIGNS: Temperature 36.5, pulse 80, respiratory rate 16, blood pressure 140/82, oxygen 94% on room air. HEENT: Pupils equal, round and reactive to light. Oral mucosa moist. NECK: No JVD or neck masses. CARDIOVASCULAR: S1 and S2 heard. Regular rate and rhythm. No murmur, no gallop. RESPIRATORY SYSTEM: Normal AP diameter. No accessory muscle use. No wheezing, no crackles. ABDOMEN: Soft, bowel sounds present, nontender, no distention. CENTRAL NERVOUS SYSTEM: Cranial nerves II-XII grossly intact. Speech is clear. No facial droop. Moves extremities. Obeys commands. EXTREMITIES: No edema, no erythema. LABORATORY DATA: WBC 11.2, hemoglobin 12.4, hematocrit 38.5, platelets 272. Sodium 138, potassium 4, chloride 108, bicarbonate 26, BUN 20, creatinine 0.6, serum glucose 93, calcium 9.1, magnesium 2.1, total bilirubin 0.4, AST 18, ALT 18, alkaline phosphatase 159. Troponin I less than 0.015. TSH 1.8. Urinalysis positive for leukocyte esterase. SARS-CoV-2 PCR negative. IMAGING DATA: CT of the head is showing [id number]-gl-[id number] bilateral subdural hematomas measuring up 1.2 cm. No midline shift or hydrocephalus. Chest x-ray, no acute cardiopulmonary findings. EKG: Normal sinus rhythm with a rate of 72. St abnormality seen,. ASSESSMENT AND PLAN: This is an 89-year-old female who presents with weakness and found to have bilateral subdural hematomas. 1. Ubrns-xq-bufahft subdural hematomas: She fell first time on 09/10/2020 and transferred to [facility], treated conservatively. Now comes back with again aikvv-xt-qdjrgrx subdural hematomas. The size has increased to 1.2 cm. No midline shift and no hydrocephalus. Was accepted for transfer at [facility], waiting for transfer. We will keep her n.p.o., gentle fluids. Monitor in the tele floor. 2. Urinary tract infection: Started on Rocephin. Follow the cultures. 3. History of delirium: Monitor for any delirium. 4. History of hypertension: Continue amlodipine, losartan, and metoprolol will monitor the blood pressure. 5. Hyperlipidemia: On statin. 6. Generalized anxiety disorder and depression: Continue sertraline. 7. Hypothyroidism: On Synthroid. 8. History of bilateral leg edema: On Lasix every other day. 9. Abnormal ekg. Patinet asymptomatic. troponin negative x 2. Follow up with echo. Also has hx of pericardial effusion 10. Deep venous thrombosis prophylaxis: Sequential compression devices. DISPOSITION: Closely monitor in tele floor. Transfer to [facility] whenever the bed is available. CODE STATUS: DNR/DNI as per my discussion with the daughter. Job ID: [id number] MTDD
[2020-11-07] MEDS ORDERED: hydrALAZINE HCL 20 MG/ML VIAL IV PRN (23:21)
[2020-11-07] MEDS ORDERED: CAPSAICIN CR 0.075% 60 GM TUBE EXT PRN (23:56)
[2020-11-08 06:21] LABS: Basophils # (auto) 0.04 K/uL (0-0.2); Basophils % (auto) 0.4 %; Eosinophils # (auto) 0.09 K/uL (0-0.5); Eosinophils % (auto) 0.8 %; Hematocrit (blood only) 39.5 % (37-47); Hemoglobin 12.8 g/dL (12.0-16.0); Immature Granulocytes # (auto) 0.02 K/uL (0.00-0.02); Immature Granulocytes % (auto) 0.2 %; Lymphocytes % (auto) 26.1 %; Mean Corpuscular Hemoglobin 31.1 pg (25-34); Mean Corpuscular Hgb Conc 32.4 g/dL (32-36); Mean Corpuscular Volume 96.1 fL (80-100); Mean Platelet Volume 10.4 fL (7.4-10.4); Monocytes # (auto) 0.84 K/uL (0.11-0.59); Monocytes % (auto) 7.8 %; Neutrophils # (auto) 6.94 K/uL (1.4-6.5); Neutrophils % (auto) 64.7 %; Platelet Count 259 K/uL (130-400); RDW Coefficient of Variation 15.4 % (11.5-14.5); RDW Standard Deviation 54.5 fL (36.4-46.3); Red Blood Count 4.11 M/uL (4.2-5.4); White Blood Count 10.73 K/uL (4.8-10.8)
[2020-11-08] MEDS ORDERED: LEVOTHYROXINE SODIUM 25 MCG TABLET PO SCH (06:30)
[2020-11-08 07:00] LABS: BUN Creatinine Ratio 26.9 (10-20); Blood Urea Nitrogen 14 mg/dl (7-18); Calcium 8.8 mg/dl (8.5-10.1); Carbon Dioxide 25 mmol/L (21-32); Chloride 106 mmol/L (98-107); Est GFR (African American) 98.3 ml/min; Est GFR (Non-African American) 84.8 ml/min; Glucose 99 mg/dl (70-99); Magnesium 2.1 mg/dl (1.8-2.4); Sodium 139 mmol/L (136-145)
[2020-11-08 07:05] LABS: Troponin I < 0.015 ng/ml (0-0.045)
--- NOTE | 2020-11-08 07:32 | CT Scan Report ---
CT SCAN OF THE BRAIN WITHOUT IV CONTRAST CLINICAL HISTORY: Follow-up subdural hematomas COMPARISON STUDY: CT of the brain dated 11/07/2020 and 09/20/2020. TECHNIQUE: Unenhanced axial CT scan of the brain is performed from the vertex to the skull base. A do se lowering technique was utilized adhering to the principles of ALARA. 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 These have increased in size as compared to yesterday. This measures up to 1.6 cm on the right frontal convexity and 1.4 cm along the left frontal convexity. This effaces the subjacent cortical sulci. There is no midline shift or t onsillar herniation. There are age-related involutional changes noting mild subcortical and perivent ricular microangiopathic change. There is no parenchymal hematoma or evidence of acute territorial is chemia by CT criteria. López-white matter differentiation is preserved. Ventricles, sulci, cisterns: Prominent secondary to involutional change. Intracranial vasculature: There is atherosclerotic calcification of the cavernous carotid arteries. Calvarium: Unremarkable. Sinuses and mastoids: The visualized paranasal sinuses are clear. There is trace right mastoid effusi on. The left mastoid air cells are well pneumatized. Orbits: The bony orbits are grossly intact. There are bilateral ocular lens implants. 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 These have increased in size as compared to yesterday with increasing mass effect on the subjacent cortical sulci. ACT 112: Negative or not required by law. Electronically signed by: Yusuf Cisneros M.D. 11/08/2020 7:31 AM
[2020-11-08] MEDS ORDERED: ASCORBIC ACID 500 MG TAB PO SCH (09:00)
[2020-11-08] MEDS ORDERED: MULTIVITAMIN TAB PO SCH (09:00)
[2020-11-08] MEDS ORDERED: METOPROLOL SUCC 25MG EXT REL TAB PO SCH (09:00)
[2020-11-08] MEDS ORDERED: LOSARTAN POTASSIUM 25 MG TAB PO SCH (09:00)
[2020-11-08] MEDS ORDERED: FUROSEMIDE 20 MG TAB PO SCH (09:00)
[2020-11-08] MEDS ORDERED: PRAVASTATIN SOD 20 MG TAB PO SCH (09:00)
[2020-11-08] MEDS ORDERED: SERTRALINE HCL 50 MG TABLET PO SCH (09:00)
[2020-11-08] MEDS ORDERED: amLODIPine BESYLATE 5 MG TAB PO SCH (09:00)
[2020-11-08] MEDS: SODIUM CHLORIDE 0.9% 1000ML 1,000 ML IV SCH (11:46)
--- NOTE | 2020-11-08 18:55 | Electrocardiogram Report ---
Test Reason : Blood Pressure : / mmHG Vent. Rate : 072 BPM Atrial Rate : 072 BPM P-R Int : 194 ms QRS Dur : 070 ms QT Int : 406 ms P-R-T Axes : 000 000 146 degrees QTc Int : 444 ms Poor data quality, interpretation may be adversely affected Normal sinus rhythm Abnormal ECG Confirmed by Zane Nelson ([id number]) on 11/08/2020 6:54:52 PM Referred By: REFERRED SELF Confirmed By:Neo Nelson
[2020-11-08] MEDS ORDERED: cefTRIAXone SODIUM 1,000 MG in DEXTROSE 5% 50 ML IV SCH (19:00)
--- NOTE | 2020-11-08 19:01 | Electrocardiogram Report ---
Test Reason : Blood Pressure : / mmHG Vent. Rate : 076 BPM Atrial Rate : 076 BPM P-R Int : 182 ms QRS Dur : 074 ms QT Int : 402 ms P-R-T Axes : 084 057 088 degrees QTc Int : 452 ms Poor data quality, interpretation may be adversely affected Normal sinus rhythm with sinus arrhythmia Nonspecific T wave abnormality Abnormal ECG When compared with ECG of 07-NOV-2020 21:54, (unconfirmed) Questionable change in QRS axis Confirmed by Zane Nelson ([id number]) on 11/08/2020 7:01:22 PM Referred By: REFERRED SELF Confirmed By:Neo Nelson
--- NOTE | 2020-11-08 20:09 | Discharge Summary ---
Date of Service November 08, 2020 Admission HPI Per Admitting Provider DATE OF ADMISSION: 11/07/2020. CHIEF COMPLAINT: Weakness, subdural hematoma. HISTORY OF PRESENT ILLNESS: This is an 89-year-old female with past medical history significant for hyperlipidemia, subclinical hypothyroidism, history of mitral valve prolapse, hypertension, history of pericardial effusion, senile osteoporosis, history of right hip fracture, delirium, history of generalized anxiety disorder, and history of fall at home. The patient had a fall at home in August and she was found to have subdural hematomas and she was transferred to [facility] . She was seen by neurosurgery and trauma surgery, was treated with Keppra, and also she had followup CAT scan that showed improving . Initial fall was on 09/10/2020 for subdural hematoma. She had a fall again on 09/18/2020 and had a right hip fracture and she is status post right hip surgery and did fine and got discharged to rehabilitation. Then after rehab, she went home. She lives with her daughter and her granddaughter and son-in-law. Ambulates with a walker and as per daughter again on 10/13/2020, she again fell and hit the right elbow and she was seen by orthopedics and she was managed with pain medications. She was doing fine. She seemed okay, but yesterday morning she was feeling weak and tired and today she could not ambulate because of weakness, that is the reason the daughter brought her back to the hospital today and imaging studies are showing bilateral subdural hclnu-ss-ctgbshu hematomas increasing up to 1.2 cm on the right and 1.1 cm on the left, which were previously 7 mm. ER called [facility] and the patient was accepted in transfer, but because there was no bed available we are admitting to the hospital and to transfer to [facility] whenever the bed is available. She was also found to have UTI and ER gave a dose of Rocephin. Currently, resting comfortably and hemodynamically stable. Denies any headache, denies any blurred visions or double visions, no earache, no runny nose, no sore throat. She says she coughs once in a while. Appetite is okay. Once in a while, she says she chokes, but she also swallows okay. No chest pain, no shortness of breath, no nausea, no abdominal pain, no diarrhea or cons tipation. No swelling in the legs. ALLERGIES: CHLORTHALIDONE, FOSAMAX, NSAIDs. PAST MEDICAL HISTORY: As mentioned above. PAST SURGICAL HISTORY: Cystourethroscopy with lithotripsy, dilatation and curettage, bilateral cataract surgery, right hip surgery. MEDICATIONS: The patient is currently on amlodipine 10 mg p.o. daily, vitamin C 500 mg p.o. daily, Lasix 20 mg p.o. every other day, levothyroxine 25 mcg p.o. daily, losartan 25 mg p.o. daily, metoprolol succinate 25 mg p.o. daily, multivitamin 1 tablet p.o. daily, pravastatin 20 mg p.o. daily, sertraline 25 mg p.o. daily. FAMILY HISTORY: Significant for mother had pancreatic cancer, father had [place]. SOCIAL HISTORY: , currently lives with her daughter and her family. No smoking, no alcohol, no drug use. REVIEW OF SYSTEMS: As per HPI. Rest of the review of systems is negative. Admission Exam Per Admitting Provider GENERAL: The patient is old and frail, not in acute distress. VITAL SIGNS: Temperature 36.5, pulse 80, respiratory rate 16, blood pressure 140/82, oxygen 94% on room air. HEENT: Pupils equal, round and reactive to light. Oral mucosa moist. NECK: No JVD or neck masses. CARDIOVASCULAR: S1 and S2 heard. Regular rate and rhythm. No murmur, no gallop. RESPIRATORY SYSTEM: Normal AP diameter. No accessory muscle use. No wheezing, no crackles. ABDOMEN: Soft, bowel sounds present, nontender, no distention. CENTRAL NERVOUS SYSTEM: Cranial nerves II-XII grossly intact. Speech is clear. No facial droop. Moves extremities. Obeys commands. EXTREMITIES: No edema, no erythema. Principal Diagnosis Acute on chronic subdural hematoma Discharge Exam GENERAL: Alert and oriented x3. NAD, on RA. HEENT: No pallor, no icterus. Pupils equal, round and reactive to light. Oral mucosa moist. NECK: No JVD, no neck masses. HEART: S1 and S2 heard. Regular rate and rhythm. No murmur, no gallop. RESPIRATORY SYSTEM: Normal AP diameter. No accessory muscle use. No wheezing, no crackles. ABDOMEN: Soft, bowel sounds present, nontender, no distention. CENTRAL NERVOUS SYSTEM: Alert and oriented x3. No facial droop. Speech is clear. Obeys simple commands. Moves extremities. EXTREMITIES: No edema, no erythema seen. Power lower extremity bilateral 3/5 and upper extremity bilateral 4/5, sensation intact Discharge Data Allergies Allergy/AdvReac Type Severity Reaction Status Date / Time chlorthalidone Allergy Severe Rash Verified 11/07/20 16:09 alendronate sodium AdvReac Intermediate Gastrointestinal Verified 11/07/20 16:09 [From Fosamax] Upset NSAIDS (Non-Steroidal AdvReac Intermediate Hypertensio Verified 11/07/20 16:09 Anti-Inflamma n Consultations 11/07/20 20:31 ED Decision to Admit Stat Ordered Studies 11/07/20 14:46 CT head/brain wo con Stat 11/08/20 06:00 CT head/brain wo con Urgent Hospital Course (1) Acute on chronic intracranial subdural hematoma: 89-year-old lady with PMH of recurrent falls, subdural hematoma, HLD, subclinical hypothyroidism, mitral valve prolapse, HTN, pericardial effusion, senile osteoporosis, right hip fracture, delirium was brought in 11/07 for feeling weak and tired leading to decreased ambulation. At baseline she ambulates with a walker. Admitting CT head showed bilateral acute and chronic subdural hematoma which was enlarging on repeat CT imaging. Patient was already accepted at [facility] but due to bed unavailability she was admitted. While in here, she did not develop any new neurological signs of symptoms. She received 2 doses of Rocephin for UTI. Also she was managed with gentle IV fluids and n.p.o. status. Her home medications were continued. Patient was transferred to tertiary care center [[facility]] later during the day for further management of enlarging acute on chronic subdural hematoma. Total Time Total Time Spent Total Time Spent (In Minutes): 45 Discharge Plan Discharge Items Patient Disposition: Transfer Acute Care Hospital Reason For Visit: WEAKNESS Discharge Diagnosis: Acute on Chronic expanding subdural hematoma Activity: As commented below Activity Comment: PT/OT to strengthen muscles of ambulation/balance training; fall precaution Non-emergency contact: Primary Care Provider Call non-emergency contact if: you have any medication questions and your symptoms worsen Follow-up/Referrals: Sallie Hoang DO [Primary Care Provider] - Diet: Other - See Diet Comment Diet Comment: NPO until evaluated by tertiary care doctor. Moni Attending Provider Instructions: being transferred to tertiary care hospital CT head indicates worsening acute on chronic subdural hematoma but neurologically stable. Can go with ground [facility] Will get 2nd dose of rocephin for UTI (?) prior to she leaves for [facility] today. Might need one more day of rocephin tomorrow. Pending Studies at Discharge: No Stand-Alone Forms: [facility] Skilled Items Patient informed of condition?: Yes DNR: Yes Discharge Level of Care: Other Communicable Disease: No Discharge Prognosis: Deteriorating Lines: Saline Lock Urinary Catheter: No Medications and DC Order Prescriptions: Continued multivitamin Tablet 1 tab PO DAILY RF: 0 levothyroxine 25 mcg tablet 25 mcg PO DAILY RF: 0 metoprolol succinate 25 mg Tablet Extended Release 24 Hr 25 mg PO DAILY Qty: 30 RF: 1 losartan 25 mg tablet 25 mg PO DAILY RF: 0 pravastatin 20 mg tablet 20 mg PO DAILY RF: 0 sertraline 25 mg Tablet 25 mg PO DAILY RF: 0 furosemide 20 mg Tablet 20 mg PO Q OTHER DAY RF: 0 amlodipine 10 mg tablet 10 mg PO DAILY RF: 0 ascorbic acid (vitamin C) [Vitamin C] 500 mg Tablet Extended Release 500 mg PO DAILY RF: 0 Discharge Orders: Discharge Order (Routine); Ordered 11/08/20 Ordered By: Sona De Leon Admission Data Admit Date/Time: 11/07/20 21:02 Attending Provider: Sona De Leon Admit Provider: Baldemar Cronin Primary Care Provider: Sallie Hoang Other Providers: Baldemar Cronin Other Interventions: Discharge Summary Assessment (RN) Last Done: 11/08/20 17:29
== END 2020-11-08 17:28 | disposition short-term general hospital (02) | DRG 65 ==
LOC: ED 13:55 → 2S 21:02